=== PATIENT | female | born 1960 | race Caucasian/White ===

== ENCOUNTER → 2017-10-21 15:51 | Outpatient (CLI) | payer OTHER, SELFPAY | PROVIDERS: PCP Internal Medicine; Visit Provider Internal Medicine | DX: R00.2 Palpitations (principal); I11.9 Hypertensive heart disease without heart failure; E78.5 Hyperlipidemia, unspecified | CPT/HCPCS: 93225 ==

== ENCOUNTER → 2017-12-01 13:19 | Outpatient (CLI) | payer OTHER, SELFPAY ==
--- NOTE | 2017-12-01 13:30 | XR_ITS ---
XR chest 2V HISTORY: ITS.REASON: chest pain ORDERING PHYSICIAN: Jamil Ureña MD PATIENT AGE: 57 years COMPARISON: 09/20/2016 FINDINGS: The cardiomediastinal silhouette and pulmonary vascularity are within normal limits. The lungs are clear without infiltrates, suspicious nodules, or pleural effusions. No acute bony abnormalities. IMPRESSION: Negative chest, no acute finding
== END ==
PROVIDERS: PCP Nurse Practitioner Family; Visit Provider Internal Medicine
DX: R07.9 Chest pain, unspecified (principal); I11.9 Hypertensive heart disease without heart failure; E78.5 Hyperlipidemia, unspecified; F17.200 Nicotine dependence, unspecified, uncomplicated; Z82.49 Family history of ischemic heart disease and other diseases of the circulatory system
CPT/HCPCS: 71046

== ENCOUNTER → 2018-05-04 14:11 | Outpatient (CLI) | payer OTHER, SELFPAY ==
--- NOTE | 2018-05-04 14:22 | XR_ITS ---
EXAM: XR thoracic spine 3V HISTORY: ITS.REASON: ACUTE MIDLINE T SPINE PAIN Comparison: None FINDINGS: Minimal mid thoracic curvature convex right. No fracture or dislocation. No lytic or blastic change. Minimal endplate osteophytes noted anteriorly in the midthoracic spine. IMPRESSION: Mild dextroscoliosis with minimal thoracic spondylosis, no acute finding
== END ==
PROVIDERS: PCP Nurse Practitioner Family; Visit Provider Nurse Practitioner Family
DX: M54.6 Pain in thoracic spine (principal)
CPT/HCPCS: 72072

== ENCOUNTER → 2018-05-11 11:37 | Outpatient (CLI) | payer OTHER, SELFPAY ==
--- NOTE | 2018-05-11 11:53 | XR_ITS ---
EXAM: XR lumbar spine min 4V HISTORY: ITS.REASON: KASIE LOW BACK PAIN ORDERING PHYSICIAN: Tasha Delong PATIENT AGE: 57 years COMPARISON: None FINDINGS: There is minimal lumbar curvature convex right. No fracture or dislocation. No lytic or blastic change. Mild degenerative disc disease is present at L2-L3 and L3-L4. There is minimal anterolisthesis of L4 on L5 of 4 mm. Mild facet arthritic changes are present at L4-L5. There is a small area of sclerosis involving the left ilium medially and superiorly at the SI joint IMPRESSION: Lumbar spondylosis as described above
== END ==
PROVIDERS: PCP Nurse Practitioner Family; Visit Provider Nurse Practitioner Family
DX: M54.41 Lumbago with sciatica, right side (principal)
CPT/HCPCS: 72110

== ENCOUNTER → 2018-05-19 10:29 | Outpatient (POV) | payer OTHER, SELFPAY ==
[2018-05-19 10:59] VITALS: BP 130/52; PULSE 69; RESP 18; O2SAT 98
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
== END ==
PROVIDERS: PCP Family Medicine; Visit Provider Clinical Nurse Specialist Family Health
DX: M51.16 Intervertebral disc disorders with radiculopathy, lumbar region (principal)
CPT/HCPCS: 99202

== ENCOUNTER → 2018-06-02 12:32 | Outpatient (CLI) | payer OTHER, SELFPAY ==
--- NOTE | 2018-06-02 12:43 | MR_ITS ---
MR lumbar spine wo con, MR 3-d myelogram/MRCP HISTORY: PT states worsening low back pain. PT also states Rt leg pain and if sitting a long period of time PT will have numbness in buttock. ITS.REASON: LUMBAR DDD, LUMBAR SPONDYLOSIS ORDERING PHYSICIAN: Tasha Delong PATIENT AGE: 57 years Comparison: X-Ray 05/11/18 TECHNIQUE: Standard multiplanar multiecho sequences are performed without contrast. 3-D MIP and myelographic images are also rendered and reviewed FINDINGS: There is normal alignment. The spinal cord ends at the T12-L1 level. T11-T12: Mild degenerative disc disease. T12-L1: Unremarkable. L1-L2: Unremarkable L2-L3: Degenerative disc disease with bulging disc and mild facet and ligamentum flavum hypertrophy with mild bilateral lateral recess and mild left foraminal narrowing. L3-L4: Mild degenerative disc disease with bulging disc along with facet and ligamentum flavum hypertrophy with mild bilateral lateral recess narrowing and mild bilateral foraminal narrowing. L4-5: Mild bulging disc along with facet and ligamentum flavum hypertrophy with moderate bilateral foraminal narrowing. There is borderline transverse narrowing of the canal is 12 mm. Is minimal anterolisthesis of L4 to millimeters L5-S1: Degenerative disc disease with minimal bulging disc and minimal central disc protrusion without impingement. There is mild facet ligamentum flavum hypertrophy. No disc herniation. There is a small left renal cyst laterally at 5 mm. Nonspecific increased T1 and T2 signal involves the mid aspect of L1, superior endplate of L3 anteriorly and the inferior endplate of L3 posteriorly consistent with lipomatous or hemangiomatous changes. IMPRESSION: 1. Mild multilevel lumbar spondylosis with degenerative disc disease and bulging disc along with facet and ligamentum flavum hypertrophy with lateral recess and foraminal narrowing. See above for detailed description at each level. 2. No disc herniation or central canal stenosis
== END ==
PROVIDERS: PCP Nurse Practitioner Family; Visit Provider Nurse Practitioner Family
DX: M51.36 Other intervertebral disc degeneration, lumbar region (principal); M47.816 Spondylosis without myelopathy or radiculopathy, lumbar region
CPT/HCPCS: 72148; 76376

== ENCOUNTER → 2018-07-07 10:25 | Outpatient (POV) | payer OTHER, SELFPAY ==
[2018-07-07 10:32] VITALS: BP 113/83; PULSE 79; RESP 18; O2SAT 98; BMI 20.5
--- NOTE | 2018-07-07 10:40 | HMH.PAINSOAP ---
[facility] Pain Management SOAP Note Subjective:: Patient is a pleasant 57-year-old white female who we are treating for low back pain with lumbar radicular symptoms. Patient is status post one lumbar epidural steroid injection and she states she is 80% improved. Patient states her only symptomology is now on her right side. She has right leg pain. Patient would like to try one more epidural injection to see if this is beneficial. She rates her pain today 3 out of 10. ROS General: no recent weight change, no fever, no sleep disturbances Respiratory: no cough, no shortness of air, no recurring pulmonary infections Cardiovascular/Peripheral Vascular: No chest pain, No palpitations, no edema, no shortness of breath. Gastrointestinal: no incontinence, normal bowel movements reported Genitourinary: no incontinence Musculoskeletal: Back pain, right leg pain Psychiatric: normal mood/ affect Neurological: [denies weakness in extremities], [denies balance issues] Objective:: Physical Exam General: Alert and oriented x3, no acute distress, pleasant and cooperative, [on room air] Lungs: Resps E/U, Symmetrical chest expansion, Eyes: PERRL Musculoskeletal: Flexion and extension of lumbar spine somewhat guarded secondary to pain, deep tendon reflexes normal, strength in upper and lower extremities [5/5], normal gait noted, positive straight leg raise test on the right side at 30 degrees Neurological: speech clear, 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 I will follow-up with the patient after this and reassess her symptoms at that time. Patient is continuing a home stretching program. Patient is not on any anticoagulation therapy. This note was dictated using voice recognition software and may contain errors or omissions
--- NOTE | 2018-07-07 10:43 | P.CONS_ITS ---
[facility] Pain Management SOAP Note Subjective:: Patient is a pleasant 57-year-old white female who we are treating for low back pain with lumbar radicular symptoms. Patient is status post one lumbar epidural steroid injection and she states she is 80% improved. Patient states her only symptomology is now on her right side. She has right leg pain. Patient would like to try one more epidural injection to see if this is beneficial. She rates her pain today 3 out of 10. ROS General: no recent weight change, no fever, no sleep disturbances Respiratory: no cough, no shortness of air, no recurring pulmonary infections Cardiovascular/Peripheral Vascular: No chest pain, No palpitations, no edema, no shortness of breath. Gastrointestinal: no incontinence, normal bowel movements reported Genitourinary: no incontinence Musculoskeletal: Back pain, right leg pain Psychiatric: normal mood/ affect Neurological: [denies weakness in extremities], [denies balance issues] Objective:: Physical Exam General: Alert and oriented x3, no acute distress, pleasant and cooperative, [on room air] Lungs: Resps E/U, Symmetrical chest expansion, Eyes: PERRL Musculoskeletal: Flexion and extension of lumbar spine somewhat guarded secondary to pain, deep tendon reflexes normal, strength in upper and lower extremities [5/5], normal gait noted, positive straight leg raise test on the right side at 30 degrees 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 I will follow-up with the patient after this and reassess her symptoms at that time. Patient is continuing a home stretching program. Patient is not on any anticoagulation therapy. This note was dictated using voice recognition software and may contain errors or omissions
== END ==
PROVIDERS: PCP Nurse Practitioner Family; Visit Provider Clinical Nurse Specialist Family Health
DX: M51.16 Intervertebral disc disorders with radiculopathy, lumbar region (principal)
CPT/HCPCS: 99213

== ENCOUNTER 2018-08-17 09:14 | Inpatient (IN) ==
[2018-08-17 09:50] LABS: Basophils # 0.1 K/mm3 (0-0.2); Basophils % 0.4 % (0.1-2.0); Eosinophils # 0.1 K/mm3 (0.0-0.4); Eosinophils % 0.4 % (0.1-12.0); Hematocrit 52.2 % (37.0-47.0); Hemoglobin 17.7 g/dL (12.2-16.2); Lymphocytes # 1.9 K/mm3 (0.7-4.5); Lymphocytes % 13.3 % (10-50); Mean Corpuscular Hemoglobin 30.8 pg (27.0-31.2); Mean Corpuscular Volume 90.7 fl (81-99); Mean Platelet Volume 7.6 fl (7.4-10.4); Monocytes # 0.6 K/mm3 (0.1-1.0); Neutrophils # 11.7 K/mm3 (1.8-7.8); Platelet Count 292 K/mm3 (142-424); Red Blood Count 5.75 M/mm3 (4.20-5.40); Red Cell Distribution Width 13.4 % (11.5-17.5); White Blood Count 14.3 K/mm3 (4.8-10.8)
--- NOTE | 2018-08-17 09:56 | Emergency Department Note ---
ED Disposition Clinical Impression: Pancreatitis, acute Qualifiers: Pancreatitis type: unspecified pancreatitis type Disposition: Admitted as Observation Condition on Discharge: Good Instructions: DI for Acute Abdomen Prescriptions: predniSONE [Prednisone 50mg Tab] 50 mg PO DAILY 5 Days #5 tab Referrals: Provider,Referral, [Referring] - Time of Disposition: 12:01 - Critical Care Critical Care Time: No Attestation: On 08/17/18, the high probability of a clinically significant, sudden or life threatening deterioration of the following system(s) required my full and direct attention, intervention and personal management. The time I documented below is in addition to time spent performing reported procedures but includes the following listed in this critical care notation. Medical Decision Making - Medical Records Medical records reviewed: Yes: I reviewed the patient's medical records. - Rojas Inquiry Pt receiving controlled substance: No Rojas was queried for this patient: No Vital Signs: 08/17/18 09:27 08/17/18 09:56 08/17/18 10:59 Temperature 98.2 F 98.2 F Temperature Source Oral Oral Pulse Rate [Right Radial] 84 84 63 Respiratory Rate 18 18 Blood Pressure [Right Arm] 138/74 138/74 144/66 H Blood Pressure Mean [Right Arm] 95 95 92 Blood Pressure Source [Right Arm] Automatic Cuff Automatic Cuff Automatic Cuff Blood Pressure Position [Right Arm] Sitting 02 Sat by Pulse Oximetry 100 100 98 Oxygen Delivery Method Room Air Room Air 08/17/18 11:16 Temperature Temperature Source Pulse Rate [Right Radial] 67 Respiratory Rate Blood Pressure [Right Arm] 147/84 H Blood Pressure Mean [Right Arm] 105 Blood Pressure Source [Right Arm] Automatic Cuff Blood Pressure Position [Right Arm] Sitting 02 Sat by Pulse Oximetry 95 Oxygen Delivery Method - Lab Data Lab results reviewed: Yes: I reviewed the patient's lab results. Lab Results 08/17/18 09:30: WBC 14.3 H, RBC 5.75 H, Hgb 17.7 H, Hct 52.2 H, MCV 90.7, MCH 30.8, MCHC 34.0, RDW 13.4, Plt Count 292, MPV 7.6, Neut % (Auto) 82.0 H, Lymph % (Auto) 13.3, [place] % (Auto) 4.0, Eos % (Auto) 0.4, Baso % (Auto) 0.4, Neut # (Auto) 11.7 H, Lymph # (Auto) 1.9, [place] # (Auto) 0.6, Eos # (Auto) 0.1, Baso # (Auto) 0.1 08/17/18 09:30: Sodium 139, Potassium 3.6, Chloride 97 L, Carbon Dioxide 32, Anion Gap 13.6, BUN 12, Creatinine 0.83, Estimated Creat Clear 69, Estimated GFR 71, Est GFR ( Amer) 86, Glucose 132 H, Calcium 11.0 H, Total Bilirubin 0.5, AST 26, ALT 37, Alkaline Phosphatase 176 H, Troponin I < 0.02, Total Protein 8.3 H, Albumin 4.2, Globulin 4.1 H, Albumin/Globulin Ratio 1.0 L, Amylase 239 H, Lipase 3015 H Result diagrams: 08/17/18 09:30 08/17/18 09:30 Orders (Tests/Meds): ED MEDICATIONS Discontinued Medications Generic Name Dose Route Start Last Admin Trade Name Freq PRN Reason Stop Dose Admin Famotidine 20 mg 08/17/18 09:39 08/17/18 09:44 Pepcid 20mg/2ml Vial IV 08/17/18 09:40 20 mg ONCE ONE Administration Hydromorphone HCl 1 mg 08/17/18 09:39 08/17/18 09:43 Dilaudid 2mg/Ml Syringe IV 08/17/18 09:40 1 mg ONCE ONE Administration Hydromorphone HCl 1 mg 08/17/18 11:04 08/17/18 11:09 Dilaudid 2mg/Ml Syringe IV 08/17/18 11:05 1 mg ONCE ONE Administration Sodium Chloride 1,000 mls @ 999 mls/hr 08/17/18 09:45 08/17/18 09:45 Sod Chlor 0.9% 1000ml Bag IV 08/17/18 10:45 999 mls/hr .Q1H1M RACHAEL Administration Ondansetron HCl 4 mg 08/17/18 09:39 08/17/18 09:44 Zofran 4mg/2ml Vial IV 08/17/18 09:40 4 mg ONCE ONE Administration Promethazine HCl 25 mg 08/17/18 11:05 08/17/18 11:09 Phenergan 25mg/Ml 1ml Vial IV 08/17/18 11:06 25 mg ONCE ONE Administration Sodium Chloride 10 ml 08/17/18 10:34 08/17/18 10:35 Rad-Saline Flush 10ml Syringe IV 08/17/18 10:35 10 ml ONCE ONE Administration Sodium Chloride 25 ml 08/17/18 11:05 08/17/18 11:09 Sod Chlor 0.9% 25ml Bag IV 08/17/18 11:06 25 ml ONCE ONE Administration ORDERS Category Date Time Status Chest XR 2 view (NOT portable) [XR chest 2V] Stat Exams 08/17/18 09:41 Taken Urinalysis and Microscopic Stat Lab 08/17/18 09:39 Ordered Abdominal Pain HPI - General Chief Complaint: Abdominal Pain Stated Complaint: upper stomach and back pain Time Seen by Provider: 08/17/18 09:40 Mode of Arrival: Ambulatory Limitations: No Limitations Description of Symptoms (Recalled from ER Triage Doc. by RN): Pt c/o feeling nausea all morning and vomiting. Pt states it just started this morning. - History of Present Illness MD complaint: abdominal pain Onset (ago): day(s) (2) Consistency: constant Location: epigastric Severity: moderate Severity scale (1-10): 6 Quality: aching Radiation: back - Related Data Home Medications Medication Instructions Recorded Confirmed atorvastatin 40 mg tablet 40 mg PO DAILY tab 11/04/17 08/06/18 celecoxib 200 mg capsule 200 mg PO BID cap 11/04/17 08/06/18 melatonin 3 mg tablet 3 mg PO HS PRN 11/04/17 08/06/18 Bisoprolol Fumarate [Bisoprolol 10 mg PO DAILY 04/27/18 08/06/18 10mg Tablet] diazePAM [Valium 2mg tablet] 2 mg PO DAILY 06/05/18 08/06/18 Lisinopril 20mg Tab 20 mg PO DAILYDM 07/24/18 08/06/18 Previous Rx's Medication Instructions Recorded trazodone 150 mg tablet 150 mg PO DAILY #30 tab 07/14/18 venlafaxine ER 150 mg 150 mg PO DAILY #30 cap 08/06/18 capsule,extended release 24 hr predniSONE [Prednisone 50mg Tab] 50 mg PO DAILY 5 Days #5 tab 08/17/18 Allergies Allergy/AdvReac Type Severity Reaction Status Date / Time No Known Allergies Allergy Verified 08/06/18 13:43 [facility] History - Hepatitis A Screen Drug use history?: No High risk sexual behaviors?: No History of sexually transmitted infection?: No Currently employed?: No Childcare worker?: No Do you have indoor plumbing?: Yes Do you have electricity?: Yes Attestation statement:: This patient has been screened for Hepatitis A risk factors. I have reviewed the patient's past medical history: Yes Medical History: Reports:: Anxiety, Depression, Hyperlipidemia, Hypertension, Kidney Stones, Palpitations Denies:: Cancer, Diabetes Mellitus Type 1, Diabetes Mellitus Type 2, MRSA, Seizures Other Medical History: Reports: Anemia, Arthritis Other Surgeries: Yes: Hysterectomy-Total, Other Amputation: No Fractures: No - Social History Smoking Status: Current every day smoker Tobacco Type: cigarettes # Packs/Day (cigarettes): 1 #Yrs smoked (if former smoker): 12 Alcohol Intake: never Alcohol Intake Frequency:: other Substance Use Type: crack/cocaine Occupational Status: unemployed Housing: house Household Members: spouse - Psychiatric History Expresses thoughts of harming self/others: None Suicide Plan Description: No Plan Pschychiatric History:: Reports:: Anxiety, Depression Family Hx:: Coronary Artery Disease, Hypertension, Hyperlipidemia ROS Obtained: Yes All systems reviewed & no additional complaints - Constitutional Constitutional: Denies chills, Denies fever(s) - Eyes Eyes: Reports system reviewed and no additional complaints, except as docu, Denies change in vision - ENT Ears, Nose, Mouth, and Throat: Reports system reviewed and no additional complaints, except as docu, Denies sore throat, Denies throat swelling - Cardiovascular Cardiovascular: Reports system reviewed and no additional complaints, except as docu, Denies chest pain, Denies chest pain at rest, Denies diaphoresis, Denies dyspnea, Denies dyspnea on exertion - Respiratory Respiratory: Yes system reviewed and no additional complaints, except as docu, No chest congestion, No cough, No non-productive cough, No dyspnea - Gastrointestinal Gastrointestingal: Reports: system reviewed and no additional complaints, except as docu, abdominal pain, nausea, vomiting. Denies: diarrhea - Musculoskeletal Musculoskeletal: Reports system reviewed and no additional complaints, except as docu, Denies muscle weakness, Denies muscle aches - Integumentary/Breasts Skin/Breast: Reports system reviewed and no additional complaints, except as docu, Denies rash - Neurologic Neurologic: Reports system reviewed and no additional complaints, except as docu, Denies tingling/numbness/burning sensations, Denies seizure-like activity, Denies syncope, Denies vertigo - Endocrine Endocrine: Reports system reviewed and no additional complaints, except as docu - Hematologic/Lymphatic Henatologic/Lymphatic: Denies easy bleeding, Denies easy bruising, Denies lymphadenopathy Physical Exam - General General appearance: alert, in no apparent distress - Head Head exam: atraumatic, normocephalic, normal inspection - Eye Eye exam: Present: normal appearance, PERRL, EOMI - ENT ENT exam: Present: normal exam, normal oropharynx, mucous membranes moist, TM's normal bilaterally, normal external ear exam - Neck Neck exam: Present: normal inspection, full ROM, trachea midline. Absent: meningismus, lymphadenopathy - Chest Chest inspection: Present: normal inspection, symmetric chest wall rise. Absent: tenderness - Respiratory Respiratory exam: Present: normal lung sounds bilaterally. Absent: respiratory distress - Cardiovascular Cardiovascular exam: Present: regular rate, normal rhythm. Absent: JVD - Abdominal Exam Abdominal exam: Present: soft, tenderness. Absent: distention, guarding, rebound, rigidity, mass Abdominal tenderness: Present: epigastrium - Extremities Exam Extremities exam: Present: normal inspection, full ROM, normal capillary refill. Absent: calf tenderness - Back Exam Back exam: Present: normal inspection. Absent: tenderness - Neurological Exam Neurological exam: Present: alert, oriented X3 - Psychiatric Psychiatric exam: Present: normal affect, normal mood - Skin Skin exam: Present: warm
[2018-08-17 10:01] LABS: Alanine Aminotransferase 37 U/L (12-78); Albumin Level 4.2 gm/dL (3.4-5.0); Alkaline Phosphatase 176 U/L (46-116); Amylase 239 U/L (25-115); Anion Gap 13.6 mEq/L (5-15); Aspartate Amino Transferase 26 U/L (15-37); Bilirubin,Total 0.5 mg/dL (0.2-1.0); Blood Urea Nitrogen 12 mg/dL (7-18); Carbon Dioxide 32 mmol/L (21.0-32.0); Chloride 97 mmol/L (98-107); Globulin 4.1 gm/dl (1.3-3.2); Glucose 132 mg/dL (74-106); Lipase 3015 u/L (73-393); Potassium 3.6 mmoL/L (3.5-5.1); Sodium 139 mmol/L (136-145); Total Protein,Serum 8.3 gm/dL (6.4-8.2)
--- NOTE | 2018-08-17 14:18 | Pharmacy Consult Notes ---
[facility] Pharmacy VTE Monitoring - Patient Demographics Admission date: 08/17/18 Report Date: 08/17/18 Time: 14:17 Allergies/Adverse Reactions: Patient Allergies No Known Allergies Allergy (Verified 08/06/18 13:43) Height: 1.65 m Weight: 56.699 kg Patient Problems: Current Active Problems Pancreatitis, acute (Acute) - VTE Risk Labs: VTE Related Lab Results Hgb 17.7 g/dL (12.2-16.2) H 08/17/18 09:30 Hct 52.2 % (37.0-47.0) H 08/17/18 09:30 Plt Count 292 K/mm3 (142-424) 08/17/18 09:30 BUN 12 mg/dL (7-18) 08/17/18 09:30 Creatinine 0.83 mg/dL (0.55-1.02) 08/17/18 09:30 Estimated Creat Clear 69 mL/min (50-200) 08/17/18 09:30 - Prophylaxis VTE Prophylaxis Ordered?: Yes Types of VTE Prophylaxis: TEDS Knee High Location of Applied Device: Bilateral Lower Extremeties - VTE Diagnosis Confirmed Treatment or plan recommended: Continue Current Treatment
--- NOTE | 2018-08-17 16:23 | History & Physical Report ---
*Admission Date: 08/17/18 *Chief complaint: abdominal pain and *History of present illness: 57 year old female presents for abdominal pain and vomiting. Nausea started over the weekend, vomiting began this morning, pain in located mid abdomen and radiates to back, described as burning, cramping and gnawing. Denies fever, chills, diarrhea, last BM was this morning. Tried omeprazole without any relief. PMH significant for pancreatitis three years ago, was admitted [place] hospital [place] [facility] for approx three days. Patient was admitted to second floor medical surgical unit for monitoring, fluid resuscitation, and pain control. [facility] History Medical History: Reports:: Anxiety, Depression, Hyperlipidemia, Hypertension, Kidney Stones, Palpitations Denies:: Cancer, Diabetes Mellitus Type 1, Diabetes Mellitus Type 2, MRSA, Seizures *Have you ever received a pneumonia vaccine?: No *Have you received a flu vaccine this season?: Yes Other Medical History: Reports: Anemia, Arthritis Other Surgeries: Yes: Hysterectomy-Total, Other (TONSILECTOMY AND CARPUL TUNNEL) Amputation: No Fractures: No - *Social History Educational Level: Completed High School Smoking Status: Current every day smoker Tobacco Type: cigarettes # Packs/Day (cigarettes): 1 #Yrs smoked (if former smoker): 12 Alcohol Intake: never Alcohol Intake Frequency:: other Substance Use Type: crack/cocaine *Occupational Status:: unemployed Housing: house Household Members: spouse *Travel in the last 8 weeks: None - Psychiatric History Expresses thoughts of harming self/others: None Suicide Plan Description: No Plan Pschychiatric History:: Reports:: Anxiety, Depression Family Hx:: Coronary Artery Disease, Hypertension, Hyperlipidemia Review of Systems - Constitutional Reports body ache(s), Denies chills, Denies fever(s), Denies headache(s) - *Cardiovascular Denies chest pain, Denies shortness of breath - *Respiratory Denies chest congestion, Denies cough - *Gastrointestinal Reports abdominal pain, Reports nausea, Reports vomiting, Denies constipation - *Neurologic Denies tingling/numbness/burning sensations, Denies seizure-like activity, Denies fainting, Denies dizziness Meds Home Medications Medication Instructions Recorded Confirmed Type atorvastatin 40 mg tablet 40 mg PO DAILY tab 11/04/17 08/17/18 History celecoxib 200 mg capsule 200 mg PO DAILY cap 11/04/17 08/17/18 History melatonin 3 mg tablet 10 mg PO HS PRN 11/04/17 08/17/18 History Bisoprolol Fumarate [Bisoprolol 10 mg PO DAILY 04/27/18 08/17/18 History 10mg Tablet] diazePAM [Valium 2mg tablet] 2 mg PO DAILY 06/05/18 08/17/18 History trazodone 150 mg tablet 150 mg PO DAILY #30 tab 07/14/18 08/17/18 Rx Lisinopril [Lisinopril 20mg Tab] 20 mg PO DAILY 07/24/18 08/17/18 History venlafaxine ER 150 mg 150 mg PO DAILY #30 cap 08/06/18 08/17/18 Rx capsule,extended release 24 hr Amlodipine Besylate [Norvasc 5mg 5 mg PO DAILY 08/17/18 08/17/18 History tablet] Furosemide [Furosemide 20mg Tab] 20 mg PO DAILY 08/17/18 08/17/18 History Ondansetron HCl [Zofran 4mg Tab] 4 mg PO NEEDED PRN 08/17/18 08/17/18 History Potassium Chloride [Klor-Con 10mEq 10 meq PO DAILY 08/17/18 08/17/18 History tab] Promethazine HCl [Phenergan 25mg 25 mg PO NEEDED PRN 08/17/18 08/17/18 History tab] Allergies Allergy/AdvReac Type Severity Reaction Status Date / Time No Known Allergies Allergy Verified 08/06/18 13:43 Exam Vital signs and Labs for Last 24 Hours: Temp Pulse Resp BP Pulse Ox 97.6 F 80 16 152/84 H 98 08/17/18 16:00 08/17/18 16:00 08/17/18 16:00 08/17/18 16:00 08/17/18 16:00 Laboratory Results - last 24 hr 08/17/18 09:30: WBC 14.3 H, RBC 5.75 H, Hgb 17.7 H, Hct 52.2 H, MCV 90.7, MCH 30.8, MCHC 34.0, RDW 13.4, Plt Count 292, MPV 7.6, Neut % (Auto) 82.0 H, Lymph % (Auto) 13.3, [place] % (Auto) 4.0, Eos % (Auto) 0.4, Baso % (Auto) 0.4, Neut # (Auto) 11.7 H, Lymph # (Auto) 1.9, [place] # (Auto) 0.6, Eos # (Auto) 0.1, Baso # (Auto) 0.1 08/17/18 09:30: Sodium 139, Potassium 3.6, Chloride 97 L, Carbon Dioxide 32, Anion Gap 13.6, BUN 12, Creatinine 0.83, Estimated Creat Clear 69, Estimated GFR 71, Est GFR ( Amer) 86, Glucose 132 H, Calcium 11.0 H, Total Bilirubin 0.5, AST 26, ALT 37, Alkaline Phosphatase 176 H, Troponin I < 0.02, Total Protein 8.3 H, Albumin 4.2, Globulin 4.1 H, Albumin/Globulin Ratio 1.0 L, Amylase 239 H, Lipase 3015 H I & O for Last 24 hours: Intake & Output 08/14/18 08/15/18 08/16/18 08/17/18 23:59 23:59 23:59 23:59 Intake Total 1000 / 1000 Balance 1000 / 1000 Weight 125 lb - Constitutional mild distress, thin - *Routine HEENT Exam Head: Present: normocephalic, atraumatic Eye: Present: EOMI, PERRL ENT: Present: mucous membranes dry - *Routine Respiratory Exam Present: CTA bilaterally. Absent: accessory muscle use - *Routine Cardiovascular Exam Present: RRR, Normal S1, Normal S2. Absent: murmur - *Routine Abdominal Exam Present: soft, normoactive bowel sounds, tenderness. Absent: distended, rigid - *Routine Extremities Exam Absent: cyanosis, edema - *Routine Skin Exam Present: intact, pallor - *Routine Neurological Exam Present: alert, oriented X3 - Routine Psychiatric Exam Present: normal affect Assessment and Plan - Assessment and plan all Dx Assessment and Plan for all problems:: Continue to monitor patient, OK to discontinue tele/SPO2, pain relief and antiemetic as ordered, will draw labs in AM. Remain NPO until tomorrow, may start clear liquids depending on patient status.
[2018-08-18 03:28] LABS: Microscopic, Urine URINE MICROSCOPIC (MICROSCOPIC)
[2018-08-18 03:29] LABS: Appearance,Urine CLEAR (Clear); Bilirubin,Urine Negative (Negative); Blood, Urine TRACE-I (Negative); Color,Urine YELLOW (Yellow); Glucose,Urine (UA) Negative (Negative); Ketones,Urine Negative (Negative); Leukocyte Esterase,Urine Negative (Negative); PH,Urine 6.5 (5.0-8.5); Protein,Urine Negative (Negative); Specific Gravity, Urine 1.015 (1.005-1.030); Urobilinogen,Urine 0.2 EU/dl (0.2)
[2018-08-18 03:37] LABS: Bacteria,Urine 1+ /lpf; Mucus,Urine 1+ /lpf
[2018-08-18 06:53] LABS: Basophils % 0.1 % (0.1-2.0); Eosinophils % 0.1 % (0.1-12.0); Hematocrit 42.3 % (37.0-47.0); Lymphocytes # 0.6 K/mm3 (0.7-4.5); Mean Corpuscular HGB Conc 33.5 g/dL (31.8-35.4); Mean Corpuscular Hemoglobin 30.5 pg (27.0-31.2); Mean Corpuscular Volume 91.1 fl (81-99); Mean Platelet Volume 7.3 fl (7.4-10.4); Monocytes # 0.4 K/mm3 (0.1-1.0); Monocytes % 4.7 % (1.7-9.3); Neutrophils # 8.4 K/mm3 (1.8-7.8); Neutrophils % 89.2 % (37.0-80.0); Platelet Count 196 K/mm3 (142-424); Red Blood Count 4.64 M/mm3 (4.20-5.40); Red Cell Distribution Width 13.3 % (11.5-17.5); White Blood Count 9.5 K/mm3 (4.8-10.8)
[2018-08-18 07:01] LABS: Anion Gap 11.2 mEq/L (5-15); Potassium 4.2 mmoL/L (3.5-5.1)
[2018-08-18 07:08] LABS: Chol/HDL Ratio 4.9 (1-3.5)
[2018-08-18 07:12] LABS: Calcium 9.5 mg/dL (8.5-10.1); Hemoglobin 14.2 g/dL (12.2-16.2)
--- NOTE | 2018-08-18 07:30 | Progress Note ---
Internal Medicine - PN: Subj *Date: 08/18/18 *Time: 07:26 Interval history: Patient reportedly had a rough night with continued nausea, vomiting, abdominal pain and headache. Symptoms were somewhat relieved by medications, she tells me the phenergan helped more so than zofran. Morphine helps pain but not in entirety. She has remained NPO but inquires about starting ice chips today. She drinks about four pepsi's per day and thinks headache may be due to not having caffeine. Denies diarrhea. Exam Vital signs and Labs for Last 24 Hours: Temp Pulse Resp BP Pulse Ox 99.1 F 71 16 142/83 H 98 08/18/18 04:00 08/18/18 04:00 08/18/18 04:00 08/18/18 04:00 08/18/18 04:00 Laboratory Results - last 24 hr 08/17/18 09:30: WBC 14.3 H, RBC 5.75 H, Hgb 17.7 H, Hct 52.2 H, MCV 90.7, MCH 30.8, MCHC 34.0, RDW 13.4, Plt Count 292, MPV 7.6, Neut % (Auto) 82.0 H, Lymph % (Auto) 13.3, [place] % (Auto) 4.0, Eos % (Auto) 0.4, Baso % (Auto) 0.4, Neut # (Auto) 11.7 H, Lymph # (Auto) 1.9, [place] # (Auto) 0.6, Eos # (Auto) 0.1, Baso # (Auto) 0.1 08/17/18 09:30: Sodium 139, Potassium 3.6, Chloride 97 L, Carbon Dioxide 32, Anion Gap 13.6, BUN 12, Creatinine 0.83, Estimated Creat Clear 69, Estimated GFR 71, Est GFR ( Amer) 86, Glucose 132 H, Calcium 11.0 H, Total Bilirubin 0.5, AST 26, ALT 37, Alkaline Phosphatase 176 H, Troponin I < 0.02, Total Protein 8.3 H, Albumin 4.2, Globulin 4.1 H, Albumin/Globulin Ratio 1.0 L, Amylase 239 H, Lipase 3015 H 08/18/18 03:11: Urine Color Yellow, Urine Appearance Clear, Urine pH 6.5, Ur Specific [place] 1.015, Urine Protein Negative, Urine Glucose (UA) Negative, Urine Ketones Negative, Urine Blood Trace-i, Urine Nitrate Negative, Urine Bilirubin Negative, Urine Urobilinogen 0.2, Ur Leukocyte Esterase Negative, Urine RBC 3-5, Urine WBC 3-5, Ur Squamous Epith Cells 3-5, Urine Bacteria 1+, Urine Mucus 1+ 08/18/18 06:30: WBC 9.5 D, RBC 4.64, Hgb 14.2 D, Hct 42.3, MCV 91.1, MCH 30.5, MCHC 33.5, RDW 13.3, Plt Count 196 D, MPV 7.3 L, Neut % (Auto) 89.2 H, Lymph % (Auto) 6.0 L, [place] % (Auto) 4.7, Eos % (Auto) 0.1, Baso % (Auto) 0.1, Neut # (Auto) 8.4 H, Lymph # (Auto) 0.6 L, [place] # (Auto) 0.4, Eos # (Auto) 0.0, Baso # (Auto) 0.0 08/18/18 06:30: Sodium 141, Potassium 4.2, Chloride 108 H, Carbon Dioxide 26, Anion Gap 11.2, BUN 12, Creatinine 0.58 D, Estimated Creat Clear 98, Estimated GFR 108, Est GFR ( Amer) 131 D, Glucose 106, Calcium 9.5 D, Amylase 606 H* 08/18/18 06:30: Triglycerides 130, Cholesterol 190, LDL Cholesterol 125, VLDL Cholesterol 26, HDL Cholesterol 39, Cholesterol/HDL Ratio 4.9 H I & O for Last 24 hours: Intake & Output 08/15/18 08/16/18 08/17/18 08/18/18 23:59 23:59 23:59 23:59 Intake Total 1000 / 1000 Output Total 400 / 400 Balance 1000 / 1000 -400 / -400 Weight 125 lb - Constitutional no acute distress, thin - *Routine HEENT Exam Head: Present: normocephalic, atraumatic ENT: Present: mucous membranes dry - *Routine Respiratory Exam Present: CTA bilaterally. Absent: accessory muscle use, rales - *Routine Cardiovascular Exam Present: RRR, Normal S1, Normal S2. Absent: murmur - *Routine Abdominal Exam Present: normoactive bowel sounds, tenderness, firm Comments: slight distention - *Routine Extremities Exam Absent: cyanosis, edema - *Routine Skin Exam Present: intact, dry, pallor - *Routine Neurological Exam Present: alert, oriented X3 - Routine Psychiatric Exam Present: normal affect Assessment and Plan - Assessment and plan all Dx Assessment and Plan for all problems:: Patient to remain NPO at this time, will increase morphine to 4mg every 2hr PRN pain. Will also increase IVF back up to 250ml/hr. Will follow up with this afternoon.
[2018-08-18 08:59] LABS: Lymphocytes % 7 % (10-50); Monocytes % 3 % (2-9); Neutrophils % 90 % (42-76); RBC Morphology Normal; Total Cells Counted 100
[2018-08-19 06:52] LABS: Basophils % 0.1 % (0.1-2.0); Eosinophils % 0.3 % (0.1-12.0); Hematocrit 37.5 % (37.0-47.0); Lymphocytes # 0.7 K/mm3 (0.7-4.5); Lymphocytes % 7.1 % (10-50); Mean Corpuscular HGB Conc 34.7 g/dL (31.8-35.4); Mean Corpuscular Hemoglobin 31.1 pg (27.0-31.2); Mean Corpuscular Volume 89.7 fl (81-99); Mean Platelet Volume 7.7 fl (7.4-10.4); Monocytes # 0.4 K/mm3 (0.1-1.0); Monocytes % 4.2 % (1.7-9.3); Neutrophils % 88.3 % (37.0-80.0); Platelet Count 169 K/mm3 (142-424); Red Blood Count 4.18 M/mm3 (4.20-5.40); White Blood Count 10.1 K/mm3 (4.8-10.8)
[2018-08-19 07:03] LABS: Albumin Level 2.5 gm/dL (3.4-5.0); Albumin/Globulin Ratio 0.8 (1.1-1.8); Anion Gap 11.3 mEq/L (5-15); Bilirubin,Total 0.5 mg/dL (0.2-1.0); Calcium 9.2 mg/dL (8.5-10.1); Potassium 3.3 mmoL/L (3.5-5.1); Total Protein,Serum 5.5 gm/dL (6.4-8.2)
--- NOTE | 2018-08-19 07:10 | Progress Note ---
Internal Medicine - PN: Subj *Date: 08/19/18 *Time: 07:04 Interval history: Patient reports feeling tender and more swollen in abdomen this morning. Has tolerated sips of water and ice chips throughout the night, positive for nausea, negative for vomiting, dry heaves, fevers, or chills. Denies any shortness of breath. Last bowel movement one friday morning. Exam Vital signs and Labs for Last 24 Hours: Temp Pulse Resp BP Pulse Ox 98.2 F 68 16 139/73 95 08/19/18 04:00 08/19/18 04:00 08/19/18 04:00 08/19/18 04:00 08/19/18 04:00 Laboratory Results - last 24 hr 08/18/18 06:30: Hgb 14.2 D, Total Counted 100, Neutrophils % (Manual) 90 H, Lymphocytes % (Manual) 7 L, Monocytes % (Manual) 3, Platelet Estimate Normal, RBC Morphology Normal 08/18/18 06:30: Sodium 141, Potassium 4.2, Chloride 108 H, Carbon Dioxide 26, Anion Gap 11.2, BUN 12, Creatinine 0.58 D, Estimated Creat Clear 98, Estimated GFR 108, Est GFR ( Amer) 131 D, Glucose 106, Calcium 9.5 D, Amylase 606 H* 08/18/18 06:30: Lipase 3538 H 08/18/18 06:30: Triglycerides 130, Cholesterol 190, LDL Cholesterol 125, VLDL Cholesterol 26, HDL Cholesterol 39, Cholesterol/HDL Ratio 4.9 H 08/19/18 06:13: WBC 10.1, RBC 4.18 L, Hgb 13.0, Hct 37.5, MCV 89.7, MCH 31.1, MCHC 34.7, RDW 13.0, Plt Count 169, MPV 7.7, Neut % (Auto) 88.3 H, Lymph % (A uto) 7.1 L, [place] % (Auto) 4.2, Eos % (Auto) 0.3, Baso % (Auto) 0.1, Neut # (Auto) 9.0 H, Lymph # (Auto) 0.7, [place] # (Auto) 0.4, Eos # (Auto) 0.0, Baso # (Auto) 0.0 I & O for Last 24 hours: Intake & Output 0208/17/18 08/18/18 08/19/18 23:59 23:59 23:59 23:59 Intake Total 1000 / 1000 0 / 0 / Output Total 1000 / 1000 Balance 1000 / 1000 -1000 / -1000 Weight 125 lb - Constitutional no acute distress, thin - *Routine HEENT Exam Head: Present: normocephalic, atraumatic - *Routine Respiratory Exam Present: CTA bilaterally. Absent: accessory muscle use, rales - *Routine Cardiovascular Exam Present: RRR, Normal S1, Normal S2. Absent: murmur, irregular rhythm - *Routine Abdominal Exam Present: tenderness, distended, rigid Comments: hypoactive bowel sounds noted - *Routine Extremities Exam Absent: cyanosis, edema - *Routine Skin Exam Present: intact. Absent: cyanosis, dry - *Routine Neurological Exam Present: alert, oriented X3 - Routine Psychiatric Exam Present: normal affect Assessment and Plan - Assessment and plan all Dx Assessment and Plan for all problems:: Continue IVFs and management of pain with medications on AUG. Will order labs for tomorrow morning. Patient to continue on sips of water and ice chips at this time, will see patient this afternoon to determine advancement of diet.
[2018-08-19 07:40] LABS: Lymphocytes % 5 % (10-50); Monocytes % 3 % (2-9); Neutrophils % 92 % (42-76); Total Cells Counted 100
[2018-08-19 07:41] LABS: RBC Morphology Normal
--- NOTE | 2018-08-20 07:04 | Progress Note ---
Internal Medicine - PN: Subj *Date: 08/20/18 *Time: 07:02 Interval history: Patient feels better. Pain is present but improving. No vomiting. Some nausea. Nausea is not made worse with po intake Exam Vital signs and Labs for Last 24 Hours: Temp Pulse Resp BP Pulse Ox 98.1 F 71 16 94/52 L 96 08/20/18 04:00 08/20/18 04:00 08/20/18 04:00 08/20/18 04:00 08/20/18 04:00 Laboratory Results - last 24 hr 08/19/18 06:13: Total Counted 100, Neutrophils % (Manual) 92 H, Lymphocytes % (Manual) 5 L, Monocytes % (Manual) 3, Platelet Estimate Normal, RBC Morphology Normal 08/19/18 06:13: Sodium 141, Potassium 3.3 L D, Chloride 108 H, Carbon Dioxide 25, Anion Gap 11.3, BUN 5 L D, Creatinine 0.52 L, Estimated Creat Clear 109, Estimated GFR 122, Est GFR ( Amer) 148, Glucose 116 H, Calcium 9.2, Total Bilirubin 0.5, AST 7 L D, ALT 15 D, Alkaline Phosphatase 99, Total Protein 5.5 L D, Albumin 2.5 L, Globulin 3.0, Albumin/Globulin Ratio 0.8 L, Amylase 377 H* D 08/19/18 06:13: Lipase 1126 H I & O for Last 24 hours: Intake & Output 08/17/18 08/18/18 08/19/18 08/20/18 11:59 11:59 11:59 11:59 Intake Total 1000 / 1000 911 / 911 3601 / 3601 Output Total 400 / 400 600 / 600 Balance 600 / 600 311 / 311 3601 / 3601 Weight 125 lb 125 lb Narrative: Does not appear to be in pain. Abdomen is soft with epigastric tenderness with deep palpation. Mild epigastric swelling. Bowel Sounds present Assessment and Plan (1) Pancreatitis, acute Current visit: Yes Status: Acute Qualifiers: Pancreatitis type: unspecified pancreatitis type Category: Medical Code(s): K85.90 - Acute pancreatitis without necrosis or infection, unspecified - Assessment and plan all Dx Assessment and Plan for all problems:: Advance diet later today. Encouraged ambulation
[2018-08-20 07:08] LABS: Anion Gap 13.3 mEq/L (5-15); Bilirubin,Total 0.5 mg/dL (0.2-1.0); Potassium 4.3 mmoL/L (3.5-5.1)
[2018-08-20 07:29] LABS: Calcium 9.2 mg/dL (8.5-10.1); Total Protein,Serum 5.1 gm/dL (6.4-8.2)
[2018-08-20 07:30] LABS: Albumin Level 2.4 gm/dL (3.4-5.0); Albumin/Globulin Ratio 0.9 (1.1-1.8); Globulin 2.7 gm/dl (1.3-3.2)
[2018-08-21 07:11] LABS: Albumin Level 2.2 gm/dL (3.4-5.0); Albumin/Globulin Ratio 0.6 (1.1-1.8); Anion Gap 11.4 mEq/L (5-15); Bilirubin,Total 0.7 mg/dL (0.2-1.0); Calcium 9.5 mg/dL (8.5-10.1); Globulin 3.4 gm/dl (1.3-3.2); Potassium 4.4 mmoL/L (3.5-5.1); Total Protein,Serum 5.6 gm/dL (6.4-8.2)
--- NOTE | 2018-08-21 07:15 | Discharge Summary ---
General - General Admission date:: 08/17/18 Discharge date: 08/21/18 HPI HPI: 57 year old female presents for abdominal pain and vomiting. Nausea started over the weekend, vomiting began this morning, pain in located mid abdomen and radiates to back, described as burning, cramping and gnawing. Denies fever, chills, diarrhea, last BM was this morning. Tried omeprazole without any relief. PMH significant for pancreatitis three years ago, was admitted to a hospital [facility] for approx three days. Patient was admitted to second floor medical surgical unit for monitoring, fluid resuscitation, and pain control. Hospital Course Hospital Course: Patient was admitted and placed n.p.o. with orders for morphine for pain and Reglan for nausea. Patient remained n.p.o. for over 24 hours before attempts were made to advance diet. On the evening of the patient was allowed ice chips. Abdominal pain continued to improve. On the she was advanced to clear liquid diet. Patient was on clear liquid diet for 24 hours. She had no recurrence of vomiting. While she continued to have some episodes of abdominal pain overall abdominal pain was gradually decreasing in intensity. On the her diet was advanced to full liquids which she once again tolerated without increase in nausea, recurrence of vomiting, or pain. By the morning of the patient had gone approximately 10 hours without pain medication. On exam her abdomen was nontender. Bowel sounds were present. Patient was ambulating. She had noted significant improvement in abdominal pain. Patient was discharged home. She will follow-up in the office on a previously scheduled appointment on September 03 Objective Vital signs: Temp Pulse Resp BP Pulse Ox 99.4 F 68 16 108/56 L 97 08/21/18 04:00 08/21/18 04:00 08/21/18 04:00 08/21/18 04:00 08/21/18 04:00 Results Labs on day of discharge: Labs from last 24 hours 08/20/18 05:42 Sodium 137 Potassium 4.3 D Chloride 108 H Carbon Dioxide 20 L Anion Gap 13.3 BUN 4 L Creatinine 0.52 L Estimated Creat Clear 109 Estimated GFR 122 Est GFR ( Amer) 148 Glucose 125 H Calcium 9.2 Total Bilirubin 0.5 AST 16 D ALT 17 Alkaline Phosphatase 110 Total Protein 5.1 L Albumin 2.4 L Globulin 2.7 Albumin/Globulin Ratio 0.9 L DS: Diagnosis - Discharge Diagnosis (1) Pancreatitis, acute Status: Acute Discharge Plan - Patient Discharge Instructions ACTIVITY: Continue current activity DIET: continue same diet Patient Instructions: Acute Pancreatitis - Follow up Plan Follow up with: Tasha Delong APRN [Primary Care Provider] - 09/03/18 Disposition: Home, Self-Jail Medications: Home Medications Medication Instructions Recorded Confirmed Type atorvastatin 40 mg tablet 40 mg PO DAILY tab 11/04/17 08/17/18 History celecoxib 200 mg capsule 200 mg PO DAILY cap 11/04/17 08/17/18 History melatonin 3 mg tablet 6 mg PO HSP PRN 11/04/17 08/18/18 History Bisoprolol Fumarate [Bisoprolol 10 mg PO DAILY 04/27/18 08/17/18 History 10mg Tablet] diazePAM [Valium 2mg tablet] 2 mg PO DAILY 06/05/18 08/18/18 History trazodone 150 mg tablet 150 mg PO DAILY #30 tab 07/14/18 08/17/18 Rx Lisinopril [Lisinopril 20mg Tab] 20 mg PO DAILY 07/24/18 08/17/18 History venlafaxine ER 150 mg 150 mg PO DAILY #30 cap 08/06/18 08/17/18 Rx capsule,extended release 24 hr Amlodipine Besylate [Norvasc 5mg 5 mg PO DAILY 08/17/18 08/17/18 History tablet] Furosemide [Furosemide 20mg Tab] 20 mg PO DAILY 08/17/18 08/17/18 History Ondansetron HCl [Zofran 4mg Tab] 4 mg PO Q6HP PRN 08/17/18 08/18/18 History Potassium Chloride [Klor-Con 10mEq 10 meq PO DAILY 08/17/18 08/17/18 History tab] Promethazine HCl [Phenergan 25mg 25 mg PO Q6HP PRN 08/17/18 08/18/18 History tab] Hydrocodone/Acetaminophen [Pinola 1 each PO Q6HP PRN #10 tab 08/21/18 Rx 5-325 Tablet] Prescriptions/Medication Reconciliation: New Hydrocodone/Acetaminophen [Pinola 5-325 Tablet] 1 each PO Q6HP PRN #10 tab PRN Reason: Severe Pain Continue celecoxib 200 mg capsule 200 mg PO DAILY cap melatonin 3 mg tablet 6 mg PO HSP PRN PRN Reason: Sleep trazodone 150 mg tablet 150 mg PO DAILY #30 tab atorvastatin 40 mg tablet 40 mg PO DAILY tab venlafaxine ER 150 mg capsule,extended release 24 hr 150 mg PO DAILY #30 cap Bisoprolol Fumarate [Bisoprolol 10mg Tablet] 10 mg PO DAILY diazePAM [Valium 2mg tablet] 2 mg PO DAILY Promethazine HCl [Phenergan 25mg tab] 25 mg PO Q6HP PRN PRN Reason: Nausea And Vomiting Amlodipine Besylate [Norvasc 5mg tablet] 5 mg PO DAILY Furosemide [Furosemide 20mg Tab] 20 mg PO DAILY Lisinopril [Lisinopril 20mg Tab] 20 mg PO DAILY Potassium Chloride [Klor-Con 10mEq tab] 10 meq PO DAILY Discontinued Ondansetron HCl [Zofran 4mg Tab] 4 mg PO Q6HP PRN PRN Reason: Nausea And Vomiting
== END 2018-08-21 08:45 | disposition home or self-care (01) | DRG 440 ==
LOC: ER 09:14 → 2ND 12:30
PROVIDERS: ADMIT Family Medicine; ATTEND Family Medicine
CPT/HCPCS: 36415; 71020; 71046; 74177; 80048; 80053; 80061; 81001; 82150; 83690; 84484; 85007; 85025; 93005; 96365; 96375; 96376; 99285; J2405

== ENCOUNTER → 2018-10-23 15:25 | Outpatient (CLI) | payer OTHER, SELFPAY ==
--- NOTE | 2018-10-23 15:41 | XR_ITS ---
XR chest 2V HISTORY: ITS.REASON: PNEUMONIA ORDERING PHYSICIAN: Tasha Delong APRN PATIENT AGE: 58 years COMPARISON: 08/17/2018 FINDINGS: The cardiomediastinal silhouette and pulmonary vascularity are within normal limits. There are minimal atelectatic changes in the right CP angle. Lungs are otherwise clear. No acute bony findings. IMPRESSION: Minimal atelectasis in the right CP angle otherwise negative
[2018-10-23 15:47] LABS: Basophils % 0.3 % (0.1-2.0); Eosinophils # 0.1 K/mm3 (0.0-0.4); Eosinophils % 0.6 % (0.1-12.0); Hematocrit 38.3 % (37.0-47.0); Hemoglobin 13.4 g/dL (12.2-16.2); Lymphocytes # 0.8 K/mm3 (0.7-4.5); Lymphocytes % 5.1 % (10-50); Mean Corpuscular Hemoglobin 30.1 pg (27.0-31.2); Mean Corpuscular Volume 85.8 fl (81-99); Mean Platelet Volume 7.9 fl (7.4-10.4); Monocytes # 0.7 K/mm3 (0.1-1.0); Monocytes % 4.2 % (1.7-9.3); Neutrophils # 14.4 K/mm3 (1.8-7.8); Neutrophils % 89.8 % (37.0-80.0); Platelet Count 217 K/mm3 (142-424); Red Blood Count 4.47 M/mm3 (4.20-5.40)
[2018-10-23 15:50] LABS: MANUAL DIFFERENTIAL MANUAL DIFFERENTIAL (MANUAL DIFF)
[2018-10-23 16:23] LABS: Lymphocytes % 6 % (10-50); Monocytes % 2 % (2-9); Neutrophils % 92 % (42-76); Platelet Estimate Normal; RBC Morphology Normal; Total Cells Counted 100
[2018-10-23 17:13] LABS: Alanine Aminotransferase 28 U/L (12-78); Albumin Level 3.6 gm/dL (3.4-5.0); Albumin/Globulin Ratio 1.1 (1.1-1.8); Alkaline Phosphatase 141 U/L (46-116); Anion Gap 13.2 mEq/L (5-15); Aspartate Amino Transferase 11 U/L (15-37); Bilirubin,Total 0.5 mg/dL (0.2-1.0); Blood Urea Nitrogen 8 mg/dL (7-18); Calcium 9.9 mg/dL (8.5-10.1); Carbon Dioxide 29 mmol/L (21.0-32.0); Chloride 102 mmol/L (98-107); Creatinine,Serum 0.73 mg/dL (0.55-1.02); Estimated Glomerular Filt Rate 82 ml/min (>60); GFR (African American) 100 ML/MIN (>60); Globulin 3.4 gm/dl (1.3-3.2); Glucose 110 mg/dL (74-106); Potassium 3.2 mmoL/L (3.5-5.1); Sodium 141 mmol/L (136-145)
== END ==
PROVIDERS: PCP Nurse Practitioner Family; Visit Provider Nurse Practitioner Family
DX: R07.9 Chest pain, unspecified (principal); J18.1 Lobar pneumonia, unspecified organism; R50.9 Fever, unspecified
CPT/HCPCS: 36415; 71046; 80053; 85007; 85025

== ENCOUNTER → 2018-11-03 15:16 | Outpatient (CLI) | payer OTHER, SELFPAY ==
--- NOTE | 2018-11-03 15:26 | XR_ITS ---
XR shoulder LT min 2V HISTORY: ITS.REASON: ACUTE LT SHOULDER PAIN ORDERING PHYSICIAN: Tasha Delong APRN PATIENT AGE: 58 years Comparison: None FINDINGS: No fracture or dislocation. No lytic or blastic change. There is normal mineralization. The joint spaces are well-preserved. No significant degenerative/arthritic changes. No erosive changes evident. There is minimal calcification at the greater tuberosity and may be related to some calcific tendinitis IMPRESSION: Possible calcific tendinitis otherwise negative
[2018-11-03 15:34] LABS: Basophils % 0.4 % (0.1-2.0); Eosinophils # 0.1 K/mm3 (0.0-0.4); Eosinophils % 0.7 % (0.1-12.0); Hematocrit 42.3 % (37.0-47.0); Hemoglobin 14.7 g/dL (12.2-16.2); Lymphocytes # 1.5 K/mm3 (0.7-4.5); Lymphocytes % 13.9 % (10-50); Mean Corpuscular HGB Conc 34.7 g/dL (31.8-35.4); Mean Corpuscular Hemoglobin 30.5 pg (27.0-31.2); Mean Corpuscular Volume 87.8 fl (81-99); Mean Platelet Volume 7.8 fl (7.4-10.4); Monocytes # 0.4 K/mm3 (0.1-1.0); Monocytes % 3.6 % (1.7-9.3); Neutrophils # 8.8 K/mm3 (1.8-7.8); Neutrophils % 81.4 % (37.0-80.0); Platelet Count 318 K/mm3 (142-424); Red Blood Count 4.82 M/mm3 (4.20-5.40); Red Cell Distribution Width 13.4 % (11.5-17.5); White Blood Count 10.8 K/mm3 (4.8-10.8)
[2018-11-03 17:44] LABS: Alanine Aminotransferase 44 U/L (12-78); Albumin Level 3.8 gm/dL (3.4-5.0); Albumin/Globulin Ratio 1.2 (1.1-1.8); Alkaline Phosphatase 146 U/L (46-116); Anion Gap 11.2 mEq/L (5-15); Aspartate Amino Transferase 15 U/L (15-37); Bilirubin,Total 0.4 mg/dL (0.2-1.0); Blood Urea Nitrogen 13 mg/dL (7-18); Calcium 9.9 mg/dL (8.5-10.1); Carbon Dioxide 34 mmol/L (21.0-32.0); Chloride 102 mmol/L (98-107); Creatinine,Serum 0.73 mg/dL (0.55-1.02); Estimated Glomerular Filt Rate 82 ml/min (>60); GFR (African American) 100 ML/MIN (>60); Globulin 3.3 gm/dl (1.3-3.2); Glucose 114 mg/dL (74-106); Potassium 3.2 mmoL/L (3.5-5.1); Sodium 144 mmol/L (136-145); Total Protein,Serum 7.1 gm/dL (6.4-8.2)
== END ==
PROVIDERS: PCP Nurse Practitioner Family; Visit Provider Nurse Practitioner Family
DX: M25.512 Pain in left shoulder (principal); R53.83 Other fatigue
CPT/HCPCS: 36415; 73030; 80053; 85025

== ENCOUNTER → 2018-12-22 10:29 | Outpatient (POV) | payer OTHER, SELFPAY ==
[2018-12-22 10:46] VITALS: BP 159/75; PULSE 76; RESP 18; O2SAT 98; BMI 21.4
--- NOTE | 2018-12-22 10:54 | HMH.PAINSOAP ---
[facility] Pain Management SOAP Note Subjective:: Patient is a pleasant 57-year-old who presents today for plaints of left shoulder pain and low back pain. She does say that her shoulder pain is much worse in her low back pain. Patient reports that she had an injection with Dr. Tolliver, orthopedics, for pain to her left shoulder. She reports that the injection did help with range of motion, but the pain is still there. She rates her pain a 4 out of 10 today. She says that she has pain that is starting in her neck radiating to her left lateral arm and into her left fifth finger. She is unable to sleep on this side at night. ROS General: no recent weight change, no fever, no sleep disturbances Respiratory: no cough, no shortness of air, no recurring pulmonary infections Cardiovascular/Peripheral Vascular: No chest pain, No palpitations, no edema, no shortness of breath. Gastrointestinal: no incontinence, normal bowel movements reported Genitourinary: no incontinence Musculoskeletal: Neck pain, left arm pain Psychiatric: normal mood/ affect, [denies depression], [denies anxiety] Neurological: [denies weakness in extremities], [denies balance issues] Objective:: Physical Exam General: Alert and oriented x3, no acute distress, pleasant and cooperative, [on room air] Lungs: Resps E/U, Symmetrical chest expansion, Eyes: PERRL Musculoskeletal: Flexion and extension of cervical spine somewhat guarded secondary to pain, deep tendon reflexes normal, strength in upper and lower extremities [5/5], normal gait noted Neurological: speech clear, 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 We will see her back after the MRI and reassess her symptoms at that time. She will continue a home stretching program, along with NSAIDs. She is been instructed to call the office if she has any concerns prior to her next appointment. Dr. Krause has reviewed this note and agrees with this plan of care. This note was dictated using voice recognition software and may contain errors or omissions
== END ==
PROVIDERS: PCP Nurse Practitioner Family; Visit Provider Clinical Nurse Specialist Family Health
DX: M51.16 Intervertebral disc disorders with radiculopathy, lumbar region (principal); M50.10 Cervical disc disorder with radiculopathy, unspecified cervical region
CPT/HCPCS: 99212

== ENCOUNTER → 2019-01-04 12:51 | Outpatient (CLI) | payer OTHER, SELFPAY ==
--- NOTE | 2019-01-04 12:54 | MR_ITS ---
MR cervical spine wo con HISTORY: Neck pain and bilateral shoulder pain, left arm pain and numbness ITS.REASON: NECK PAIN ORDERING PHYSICIAN: Candy Vicente APRN PATIENT AGE: 58 years Comparison: None TECHNIQUE: Standard multiplanar multiecho sequences are performed without contrast. 3-D MIP and myelographic images are also rendered and reviewed FINDINGS: There is normal alignment. The craniocervical junction has an unremarkable appearance. C2-C3: Unremarkable. C3-C4: Mild left-sided facet hypertrophic change. Minimal foraminal narrowing on the left. C4-C5: Minimal bulging disc. C5-C6: Unremarkable. C6-C7: Unremarkable. C7-T1: Unremarkable. IMPRESSION: 1. Minimal foraminal narrowing on the left at C3-C4 and minimal bulging disc at C4-C5. 2. Otherwise negative MRI of the cervical spine
== END ==
PROVIDERS: PCP Nurse Practitioner Family; Visit Provider Clinical Nurse Specialist Family Health
DX: M54.2 Cervicalgia (principal)
CPT/HCPCS: 72141; 76376

== ENCOUNTER → 2019-01-12 10:03 | Outpatient (POV) | payer OTHER, SELFPAY ==
[2019-01-12 10:40] VITALS: BP 155/82; PULSE 58; RESP 18; O2SAT 98; BMI 20.7
--- NOTE | 2019-01-12 11:34 | P.CONS_ITS ---
[facility] Pain Management SOAP Note Subjective:: Patient is a pleasant 57-year-old female who presents today for follow-up. Patient's being seen for left shoulder pain and low back pain. At the last visit, we did send the patient for imaging of her cervical spine. Patient also received trigger point injections and says that she did have increased range of motion, but continues to have left neck pain. Patient says that the pain increased after driving for long period of time yesterday. She says that the pain is only in her left neck area. She does feel that she is tensing up while driving and says that it may be related to this. She does rate her pain a 7 out of 10 today. She is continuing a home stretching program along with NSAIDs. Review of Systems General: No recent weight changes, no fever, no sleep disturbances Respiratory: No cough, no shortness of air, no recurring pulmonary infections Cardiovascular/peripheral vascular: No chest pain, no palpitations, no edema, no shortness of breath Gastrointestinal: No new onset incontinence, normal bowel movements reported Genitourinary: No new onset incontinence Musculoskeletal: Left neck pain Psychiatric: Normal mood/affect Neurological: [Denies weakness in extremities], [denies balance issues] Objective:: Physical exam General: Alert and oriented x3, no acute distress, pleasant and cooperative, [on room air] Lungs: Respirations even and unlabored, symmetrical chest expansion Eyes: PERRL Musculoskeletal: Flexion and extension of cervical spine somewhat guarded secondary to pain, deep tendon reflexes normal, strength in upper and lower extremities [5/5], normal gait noted, point tenderness to paraspinous/trapezius Neurological: Speech clear, tube skiver equal, no gross sensory deficit Assessment:: Degenerative disc disease lumbar spine with lumbar radiculopathy, cervical pain with radiculopathy Plan:: We will order the patient compounding cream to apply topically to her left neck area. We will also schedule the patient for trigger point injections to the left paraspinous/trapezius area. We will see her back after the procedure to reassess her symptoms at that time. She is been instructed to call the office if she has any concerns prior to her next appointment. The end
== END ==
PROVIDERS: PCP Nurse Practitioner Family; Visit Provider Clinical Nurse Specialist Family Health
DX: M51.16 Intervertebral disc disorders with radiculopathy, lumbar region (principal); M50.10 Cervical disc disorder with radiculopathy, unspecified cervical region
CPT/HCPCS: 99212

== ENCOUNTER → 2019-02-16 09:12 | Outpatient (POV) | payer OTHER, SELFPAY ==
--- NOTE | 2019-02-16 09:20 | HMH.PAINSOAP ---
[facility] Pain Management SOAP Note Subjective:: 58-year-old white female who presents today for follow-up after trigger point injections. Patient states she is doing extremely well with the pain resolved in her left shoulder she rates her pain a 3 out of 10. She sometimes has a twinge in her lower back however overall doing well. ROS General: no recent weight change, no fever, no sleep disturbances Respiratory: no cough, no shortness of air, no recurring pulmonary infections Cardiovascular/Peripheral Vascular: No chest pain, No palpitations, no edema, no shortness of breath. Gastrointestinal: no incontinence, normal bowel movements reported Genitourinary: no incontinence Musculoskeletal: Myofascial pain, back pain Psychiatric: normal mood/ affect Neurological: [denies weakness in extremities], [denies balance issues] Objective:: Physical Exam General: Alert and oriented x3, no acute distress, pleasant and cooperative, [on room air] Lungs: Resps E/U, Symmetrical chest expansion, Eyes: PERRL Musculoskeletal: Flexion and extension of cervical and lumbar spine somewhat guarded secondary to pain, deep tendon reflexes normal, strength in upper and lower extremities [5/5], normal gait noted Neurological: speech clear, 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 Patient's been instructed to call the office if she has any issues she would like to follow-up on a as needed basis. Dr. Krause has reviewed this note and agrees with this plan of care. This note was dictated using voice recognition software and may contain errors or omissions Pain Management Hx Components *Have you ever received a pneumonia vaccine?: No *Have you received a flu vaccine this season?: No - *Social History *Occupational Status:: employed *Travel in the last 8 weeks: None
--- NOTE | 2019-02-16 09:26 | P.CONS_ITS ---
[facility] Pain Management SOAP Note Subjective:: 58-year-old white female who presents today for follow-up after trigger point injections. Patient states she is doing extremely well with the pain resolved in her left shoulder she rates her pain a 3 out of 10. She sometimes has a twinge in her lower back however overall doing well. ROS General: no recent weight change, no fever, no sleep disturbances Respiratory: no cough, no shortness of air, no recurring pulmonary infections Cardiovascular/Peripheral Vascular: No chest pain, No palpitations, no edema, no shortness of breath. Gastrointestinal: no incontinence, normal bowel movements reported Genitourinary: no incontinence Musculoskeletal: Myofascial pain, back pain Psychiatric: normal mood/ affect Neurological: [denies weakness in extremities], [denies balance issues] Objective:: Physical Exam General: Alert and oriented x3, no acute distress, pleasant and cooperative, [on room air] Lungs: Resps E/U, Symmetrical chest expansion, Eyes: PERRL Musculoskeletal: Flexion and extension of cervical and lumbar spine somewhat guarded secondary to pain, deep tendon reflexes normal, strength in upper and lower extremities [5/5], normal gait noted Neurological: speech clear, 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 Patient's been instructed to call the office if she has any issues she would like to follow-up on a as needed basis. Dr. Krause has reviewed this note and agrees with this plan of care. This note was dictated using voice recognition software and may contain errors or omissions Pain Management Hx Components *Have you ever received a pneumonia vaccine?: No *Have you received a flu vaccine this season?: No - *Social History *Occupational Status:: employed *Travel in the last 8 weeks: None
[2019-02-16 09:51] VITALS: BP 140/92; PULSE 61; RESP 18; O2SAT 98; BMI 20.7
== END ==
PROVIDERS: PCP Nurse Practitioner Family; Visit Provider Clinical Nurse Specialist Family Health
DX: M51.16 Intervertebral disc disorders with radiculopathy, lumbar region (principal); M79.18 Myalgia, other site
CPT/HCPCS: 99212

== ENCOUNTER → 2019-08-09 10:13 | Outpatient (POV) | payer OTHER, SELFPAY ==
--- NOTE | 2019-08-09 10:29 | P.CONS_ITS ---
[facility] Pain Management SOAP Note Subjective:: Is a pleasant 58-year-old white female who presents today for follow-up. Patient was doing extremely well after her epidural injections getting 80% relief for over 4 months. Patient is now had her pain return. Patient has been taking care of her mother who is on hospice and is total care. Because of this is been difficult for her. Patient rates her pain a 9 out of 10 today. Mostly in her low back and radiating down bilateral legs. She has positive straight leg raise test bilaterally at 30 degrees. She is not on any anticoagulation therapy. She has no current infections. She is completed physical therapy in the past and is continuing a physical therapist approved stretching program at home. ROS General: no recent weight change, no fever, no sleep disturbances Respiratory: no cough, no shortness of air, no recurring pulmonary infections Cardiovascular/Peripheral Vascular: No chest pain, No palpitations, no edema, no shortness of breath. Gastrointestinal: no new onset incontinence, normal bowel movements reported Genitourinary: no new onset incontinence Musculoskeletal: Back pain, leg pain Psychiatric: normal mood/ affect Neurological: [denies new onset weakness in extremities], [denies new onset balance issues] Objective:: Physical Exam General: Alert and oriented x3, no acute distress, pleasant and cooperative, [on room air] Lungs: Resps E/U, Symmetrical chest expansion, Eyes: PERRL Musculoskeletal: Flexion and extension of lumbar spine somewhat guarded secondary to pain, deep tendon reflexes normal, strength in upper and lower extremities [5/5], antalgic gait noted Neurological: 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 Follow-up with the patient afterwards reassess her symptoms at that time. Dr. rush is out and it will be 2 weeks before we can get her injection. We will give her round of steroids. Dr. Krause has reviewed this note and agrees with this plan of care. This note was dictated using voice recognition software and may contain errors or omissions [facility] History I have reviewed the patient's past medical history: Yes Medical History: Reports:: Anxiety, Depression, Hyperlipidemia, Hypertension, Kidney Stones, Palpitations, Seizures Denies:: Cancer, Diabetes Mellitus Type 1, Diabetes Mellitus Type 2, MRSA *Have you ever received a pneumonia vaccine?: No *Have you received a flu vaccine this season?: Yes Other Medical History: Reports: Anemia, Arthritis Other Surgeries: Yes: Hysterectomy-Total, Other (TONSILECTOMY AND CARPUL TUNNEL) Amputation: No Fractures: No - *Social History Smoking Status: Current every day smoker Tobacco Type: cigarettes # Packs/Day (cigarettes): 1 #Yrs smoked (if former smoker): 12 Alcohol Intake: never Alcohol Intake Frequency:: other Substance Use Type: crack/cocaine *Occupational Status:: other Housing: house Household Members: spouse *Travel in the last 8 weeks: None - Psychiatric History Pschychiatric History:: Reports:: Anxiety, Depression Family Hx:: Coronary Artery Disease, Hypertension, Hyperlipidemia
[2019-08-09 13:00] VITALS: BP 133/61; PULSE 58; RESP 18; O2SAT 99; BMI 19.8
== END ==
PROVIDERS: PCP Nurse Practitioner Family; Visit Provider Clinical Nurse Specialist Family Health
DX: M51.16 Intervertebral disc disorders with radiculopathy, lumbar region (principal); Z72.0 Tobacco use
CPT/HCPCS: 99212

== ENCOUNTER → 2019-10-11 12:58 | Outpatient (POV) | payer OTHER, SELFPAY ==
--- NOTE | 2019-10-11 13:16 | HMH.VVPMSO ---
[facility] Virtual Visit SOAP Consent for virtual visit:: With the recent concerns about the COVID-19, we are trying to minimize exposure to you by shifting to telehealth appointments whenever possible. It restricts me from seeing you in person, but the trade off is protecting you during this pandemic. Can you see and hear me okay, and do you consent to this option? If not, I would be happy to see if we can reschedule your appointment in the future, when feasible. Has patient consented to this virtual visit?: Yes Subjective:: Patient is a pleasant 59-year-old white female who presents today for a telehealth visit in regards to her low back pain. Patient has had epidural injections which is done well however she has a new pain which is in her lower right SI and right piriformis. She is pointing out pain over her right SI joint and in her piriformis muscle. Patient states that it radiates down but does not past her knee. She has difficulty going from the sitting to standing position. She rates her pain today a 6 out of 10. ROS General: no recent weight change, no fever, no sleep disturbances Respiratory: no cough, no shortness of air, no recurring pulmonary infections Cardiovascular/Peripheral Vascular: No chest pain, No palpitations, no edema, no shortness of breath. Gastrointestinal: no new onset incontinence, normal bowel movements reported Genitourinary: no new onset incontinence Musculoskeletal: Back pain, SI joint pain, piriformis pain Psychiatric: normal mood/ affect Neurological: [denies new onset weakness in extremities], [denies new onset balance issues] Objective:: Physical exam: Constitutional: Healthy appearing, well-developed, alert, in no acute distress Psychiatric: Judgment and insight intact, Alert and oriented x4 Mood and affect: Mood normal, affect appropriate Head and face: Inspection: Normocephalic atraumatic, extraocular movement intact Respiratory: Breathing nonlabored, nondyspneic Cardiovascular: No cyanosis, clubbing, or edema observed Skin: Head and neck: Skin with no lesions or rash observed Gait: Able to walk without assistive device: Able to heel and toe walk Neurologic: Sensation grossly intact per patient Musculoskeletal:[Patient has obvious difficulty going from sitting to standing position secondary to pain. Patient states that when she palpates over the area of her SI that is quite painful. Assessment:: Sacroiliitis, piriformis syndrome Plan:: We will set the patient up for right SI joint injection right piriformis injection. Patient is asking from medication however I discussed with her that we will try injection therapies first. Patient understands. We specifically discussed risk factors for Covid-19 including age, heart or lung disease, diabetes, immunosuppression and travel. We also discussed that NSAIDs may worsen Covid-19 infection symptoms and that they should not be used to treat Covid-19 symptoms. Patient was also informed that corticosteroids in any form oral or injectable will decrease immune response and may increase risk of Covid-[address] Krause has reviewed this patient's chart and this note and agrees with plan of care. Patient has been instructed to call the office if they have any issues prior to the next appointment. Dr. Krause has reviewed this note and agrees with this plan of care. This note was dictated using voice recognition software and may contain errors or omissions Time In:: 12:40 Time Out:: 12:50 [facility] History Medical History: Reports:: Anxiety, Depression, Hyperlipidemia, Hypertension, Kidney Stones, Palpitations, Seizures Denies:: Cancer, Diabetes Mellitus Type 1, Diabetes Mellitus Type 2, MRSA *Have you ever received a pneumonia vaccine?: Yes *Have you received a flu vaccine this season?: Yes Other Medical History: Reports: Anemia, Arthritis Other Surgeries: Yes: Hysterectomy-Total, Other (TONSILECTOMY AND CARPUL TUNNEL) Amputation: No Fractu
== END ==
PROVIDERS: Visit Provider Clinical Nurse Specialist Family Health
DX: M46.1 Sacroiliitis, not elsewhere classified (principal); G57.00 Lesion of sciatic nerve, unspecified lower limb
CPT/HCPCS: 99212

== ENCOUNTER 2019-10-15 10:28 | Day surgery (SDC) | payer OTHER, SELFPAY ==
[2019-10-15 10:59] VITALS: BP 124/78; PULSE 60; RESP 18; TEMP 36.9; O2SAT 99
[2019-10-15 11:14] VITALS: BP 115/87; PULSE 85; RESP 18
[2019-10-15 11:16] VITALS: BP 125/78; PULSE 85; RESP 18; O2SAT 98
--- NOTE | 2019-10-15 11:21 | HMH.PMPROC ---
- Procedure Date: 10/15/19 Time: 11:21 Anesthesiologist:: Darrell Krause MD Complications:: None Pre-procedure Diagnosis:: Sacroiliitis and sciatica on the right side with piriformis syndrome Post-procedure Diagnosis:: Same Indications for Procedure:: This patient is a pleasant 59-year-old white female who we have been treating for right-sided hip pain. She does have right-sided sacroiliitis. She has a positive SI joint compression test on the right side. She is positive Praveen's test on the right side. She has a positive Narayan test on the right side. She also has right-sided sciatica. We will do a right SI joint injection right piriformis muscle/sciatic nerve block today to help her with her pain symptoms. Her pain is increased significantly over the last few days affecting her activities of daily living and affecting her function. We will do a right SI joint injection and a right piriformis muscle/sciatic nerve block today to keep her out of the emergency room and also keep her off oral opioids. Procedure Details:: Right SI joint injection under fluoroscopy Informed consent was obtained and the risks and benefits of the procedure was going to the patient. Patient was taken to the procedure room. Patient was placed prone on the procedure table. The right hip was prepped using ChloraPrep. The skin and subcutaneous tissues were anesthetized using lidocaine. I placed a 22-gauge spinal needle into the inferior aspect of the right SI joint. Needle placement was confirmed with dye. After this we injected 5 mL bupivacaine 0.25% and Depo-Medrol 40 mg into the right SI joint. The patient tolerated the procedure well with no complication. Right sciatic nerve block/piriformis nerve block The right buttock was prepped using ChloraPrep. A 25-gauge needle was inserted into the area of the right piriformis muscle and right sciatic nerve. We injected 10 mL bupivacaine 0.25% Depo-Medrol 40 mg into the area of the right sciatic nerve. Patient tolerated the procedure well with no complications. Plan and Disposition:: We will follow-up with her in 2 weeks. Will reevaluate symptoms at that time.
[2019-10-15 11:31] VITALS: BP 139/73; PULSE 55; RESP 20; O2SAT 99
== END 2019-10-15 11:32 | disposition home or self-care (01) ==
LOC: SC.PAINP 10:28
PROVIDERS: PCP Nurse Practitioner Family; Visit Provider Anesthesiology
DX: M46.1 Sacroiliitis, not elsewhere classified (principal); M54.31 Sciatica, right side; I10 Essential (primary) hypertension; Z79.899 Other long term (current) drug therapy; E78.5 Hyperlipidemia, unspecified; F41.9 Anxiety disorder, unspecified
CPT/HCPCS: 27096; 64445; G0260; J1030; Q9966

== ENCOUNTER → 2019-11-01 11:27 | Outpatient (POV) | payer OTHER, SELFPAY ==
[2019-11-01 11:39] VITALS: BP 151/82; PULSE 71; RESP 18; TEMP 36.8; O2SAT 99
--- NOTE | 2019-11-02 08:47 | P.CONS_ITS ---
[facility] Pain Management SOAP Note Subjective:: Patient is a pleasant 59-year-old white female who presents today for follow-up. Patient is having extreme pain rating it an 8 out of 10. She is having difficulty with the right side of her body. Patient states that this is unlike her pain before she is having radiation of the right-sided pain down her leg. Patient and I discussed an epidural steroid injection she would like to move forward with this. Patient and I also discussed the gabapentin for short time. ROS General: no recent weight change, no fever, no sleep disturbances Respiratory: no cough, no shortness of air, no recurring pulmonary infections Cardiovascular/Peripheral Vascular: No chest pain, No palpitations, no edema, no shortness of breath. Gastrointestinal: no new onset incontinence, normal bowel movements reported Genitourinary: no new onset incontinence Musculoskeletal: Back pain, right leg pain Psychiatric: normal mood/ affect Neurological: [denies new onset weakness in extremities], [denies new onset balance issues] Objective:: Physical Exam General: Alert and oriented x3, no acute distress, pleasant and cooperative, [on room air] Lungs: Resps E/U, Symmetrical chest expansion, Eyes: PERRL Musculoskeletal: Flexion and extension of lumbar spine somewhat guarded sec ondary to pain, deep tendon reflexes normal, strength in upper and lower extremities [5/5], [abnormal gait noted] Neurological: speech clear, count room clerk equal, no gross sensory deficits Assessment:: Degenerative disc disease lumbar spine lumbar radiculopathy Plan:: We will plan L4-L5 lumbar epidural steroid injection. With a short prescription of gabapentin 300 mg 1 p.o. 3 times daily for 2 weeks. We will set her up for an injection as soon as possible. If she does not get relief from this we may get an updated MRI. Patient's been instructed to call the office if she has any issues prior to her next appointment. I will follow-up with her after her injection. Dr. Krause has reviewed this note and agrees with this plan of care. This note was dictated using voice recognition software and may contain errors or omissions [facility] History I have reviewed the patient's past medical history: Yes Medical History: Reports:: Anxiety, Depression, Hyperlipidemia, Hypertension, Kidney Stones, Palpitations Denies:: Cancer, Diabetes Mellitus Type 1, Diabetes Mellitus Type 2, MRSA, Se izures *Have you ever received a pneumonia vaccine?: Yes *Have you received a flu vaccine this season?: Yes Other Medical History: Reports: Anemia, Arthritis Other Surgeries: Yes: Hysterectomy-Total, Other (TONSILECTOMY AND CARPUL TUNNEL) Amputation: No Fractures: No - *Social History Smoking Status: Current every day smoker Tobacco Type: cigarettes # Packs/Day (cigarettes): 1 #Yrs smoked (if former smoker): 12 Alcohol Intake: never Alcohol Intake Frequency:: other Substance Use Type: crack/cocaine *Occupational Status:: other Housing: house Household Members: spouse *Travel in the last 8 weeks: None - Psychiatric History Pschychiatric History:: Reports:: Anxiety, Depression Family Hx:: Coronary Artery Disease, Hypertension, Hyperlipidemia
[2019-11-02 08:56] LABS: Covid-19 Nasal PCR Sendout Lex NOT DETECTED
--- NOTE | 2019-11-02 09:55 | PC.NURSE ---
pt notified of negative covid results. CARINA Chacon in pain management notified as well.
== END ==
PROVIDERS: PCP Nurse Practitioner Family; Visit Provider Clinical Nurse Specialist Family Health
DX: M51.16 Intervertebral disc disorders with radiculopathy, lumbar region (principal)
CPT/HCPCS: 99212; U0003

== ENCOUNTER 2019-11-03 13:25 | Day surgery (SDC) | payer OTHER, SELFPAY ==
[2019-11-03 13:51] VITALS: BP 141/75; PULSE 56; RESP 18; TEMP 36.7; O2SAT 100
[2019-11-03 14:06] VITALS: BP 138/89; PULSE 89; RESP 18; O2SAT 98
[2019-11-03 14:07] VITALS: BP 132/85; PULSE 85; RESP 18; O2SAT 98
--- NOTE | 2019-11-03 14:10 | HMH.PMPROC ---
- Procedure Date: 11/03/19 Time: 14:10 Anesthesiologist:: Darrell Krause MD Complications:: None Pre-procedure Diagnosis:: Degenerative disc disease of lumbar spine with lumbar radicular symptoms Post-procedure Diagnosis:: Same Indications for Procedure:: This patient is a pleasant 59-year-old white female who we are treating for low back pain with lumbar radicular symptoms. She did well with her last lumbar epidural steroid injection her pain is starting to come back. She has increasing pain in her back primarily on the right side. It is also radiating down the right leg. We will do repeat lumbar epidural steroid injection today to see if this will help with her pain symptoms. Procedure Details:: Lumbar epidural steroid injection under fluoroscopy Informed consent was obtained and the risk and benefits of the procedure was explained to the patient. The patient was taken to the procedure room. The patient was placed prone on the procedure table. The patient was prepped and draped in sterile fashion. C-arm fluoroscopy was used to view the lumbar spine. Skin and subcutaneous tissues were anesthetized using lidocaine. I placed an 18-gauge epidural needle and advanced into the L4-L5 interspace using fluoroscopic guidance and [id number] to air. After confirmation of needle placement in the epidural space with dye I injected 2 mL of lidocaine 1.5% with Depo-Medrol 80 mg. Patient tolerated the procedure well with no complications. Plan and Disposition:: We will follow-up with her in 2 weeks. Will reevaluate symptoms at that time. She did well with her gabapentin 300 mg 4 times a day. She was given a two-week supply. We will give her an additional 1 month supply with no refills. We will refer her to a neurosurgeon to see if she has allergy which may be addressed by surgery. If not she may be a candidate for spinal cord stimulation.
[2019-11-03 14:16] VITALS: BP 148/89; PULSE 54; RESP 20; O2SAT 100
== END 2019-11-03 14:18 | disposition home or self-care (01) ==
PROVIDERS: PCP Nurse Practitioner Family; Visit Provider Anesthesiology
DX: M51.16 Intervertebral disc disorders with radiculopathy, lumbar region (principal); I10 Essential (primary) hypertension; E78.5 Hyperlipidemia, unspecified; F41.9 Anxiety disorder, unspecified; F32.9 Major depressive disorder, single episode, unspecified; R00.2 Palpitations; D64.9 Anemia, unspecified; Z72.0 Tobacco use
CPT/HCPCS: 62323; J1040; Q9966

== ENCOUNTER → 2019-11-15 15:52 | Outpatient (POV) | payer OTHER, SELFPAY ==
[2019-11-15 15:53] VITALS: BP 122/85; PULSE 85; RESP 18; TEMP 36.6; O2SAT 98
--- NOTE | 2019-11-16 08:16 | HMH.PAINSOAP ---
[facility] Pain Management SOAP Note Subjective:: Patient is a pleasant 59-year-old white female who presents today for follow-up after lumbar epidural steroid injection. Patient did extremely well with her injection rating her pain today a 4 out of 10. Patient is only having right radicular symptomology down her leg. Patient and I discussed a transforaminal injection she like to move forward with this. Patient is also awaiting an appointment with Dr. Munroe. She is continuing gabapentin. Patient and I also briefly discussed a neurostimulator and gave her information in regards to this. ROS General: no recent weight change, no fever, no sleep disturbances Respiratory: no cough, no shortness of air, no recurring pulmonary infections Cardiovascular/Peripheral Vascular: No chest pain, No palpitations, no edema, no shortness of breath. Gastrointestinal: no new onset incontinence, normal bowel movements reported Genitourinary: no new onset incontinence Musculoskeletal: Right leg pain Psychiatric: normal mood/ affect, [denies depression], [denies anxiety] Neurological: [denies new onset weakness in extremities], [denies new onset balance issues] Objective:: Physical Exam General: Alert and oriented x3, no acute distress, pleasant and cooperative, [on room air] Lungs: Resps E/U, Symmetrical chest expansion, Eyes: PERRL Musculoskeletal: Flexion and extension of lumbar spine somewhat guarded secondary to pain, deep tendon reflexes normal, strength in upper and lower extremities [5/5], [abnormal gait noted] Neurological: speech clear, laboratory aide equal, no gross sensory deficits Assessment:: Degenerative disease lumbar spine with right-sided lumbar radiculopathy Plan:: We will schedule patient for a right transforaminal L4-L5 lumbar epidural steroid injection. I will follow-up with her after this reassess her symptoms at that time she is not on any anticoagulation therapy. She is planning to be seen by Dr. Munroe. We will continue her gabapentin for [address] Krause has reviewed this note and agrees with this plan of care. This note was dictated using voice recognition software and may contain errors or omissions [facility] History I have reviewed the patient's past medical history: Yes Medical History: Reports:: Anxiety, Depression, Hyperlipidemia, Hypertension, Kidney Stones, Palpitations Denies:: Cancer, Diabetes Mellitus Type 1, Diabetes Mellitus Type 2, MRSA, Seizures *Have you ever received a pneumonia vaccine?: Yes *Have you received a flu vaccine this season?: Yes Other Medical History: Reports: Anemia, Arthritis Other Surgeries: Yes: Hysterectomy-Total, Other (TONSILECTOMY AND CARPUL TUNNEL) Amputation: No Fractures: No - *Social History Smoking Status: Current every day smoker Tobacco Type: cigarettes # Packs/Day (cigarettes): 1 #Yrs smoked (if former smoker): 12 Alcohol Intake: never Alcohol Intake Frequency:: other Substance Use Type: crack/cocaine *Occupational Status:: other Housing: house Household Members: spouse *Travel in the last 8 weeks: None - Psychiatric History Pschychiatric History:: Reports:: Anxiety, Depression Family Hx:: Coronary Artery Disease, Hypertension, Hyperlipidemia
== END ==
PROVIDERS: PCP Nurse Practitioner Family; Visit Provider Clinical Nurse Specialist Family Health
DX: M51.16 Intervertebral disc disorders with radiculopathy, lumbar region (principal); Z09 Encounter for follow-up examination after completed treatment for conditions other than malignant neoplasm
CPT/HCPCS: 99212

== ENCOUNTER 2019-12-03 10:55 | Day surgery (SDC) | payer OTHER, SELFPAY ==
[2019-12-03 11:29] VITALS: BP 146/86; PULSE 62; RESP 18; O2SAT 100
[2019-12-03 12:01] VITALS: BP 145/85; PULSE 88
[2019-12-03 12:02] VITALS: BP 148/78; PULSE 85; RESP 18; O2SAT 99
--- NOTE | 2019-12-03 12:02 | P.PCN_ITS ---
- Procedure Date: 12/03/19 Time: 12:02 Anesthesiologist:: Darrell Krause MD Complications:: None Pre-procedure Diagnosis:: Degenerative disc disease of lumbar spine with lumbar radiculopathy symptoms down the right side Post-procedure Diagnosis:: Same Indications for Procedure:: This patient is a pleasant 59-year-old white female who we are treating for low back pain and right leg radicular symptoms. She has benefited previously from transforaminal epidural steroid injections done on the right side. Most of her pain is only down the right leg we will do a right L4-L5 and L5-S1 trans foraminal epidural steroid injection today to help her with her pain symptoms that have now returned. Procedure Details:: Right transforaminal epidural steroid injections Informed consent was obtained the risk and benefits of the procedure were explained to the patient. Patient was taken to the procedure room. Back was prepped using ChloraPrep. A 22-gauge spinal needle was inserted into the intervertebral foramen on the right side of L4-5 and L5-S1. Needle placement was confirmed with dye. We then injected 5 mL bupivacaine 0.25% Depo-Medrol 20 mg into each transforaminal epidural space of L4-5 and L5-S1. We use a total of 40 mg Depo-Medrol for both levels. Patient tolerated the procedure well with no complications. Plan and Disposition:: We will follow-up with her in 2 weeks. Will reevaluate symptoms at that time.
[2019-12-03 12:15] VITALS: BP 156/78; PULSE 60; RESP 18; O2SAT 100
== END 2019-12-03 12:15 | disposition home or self-care (01) ==
PROVIDERS: PCP Nurse Practitioner Family; Visit Provider Anesthesiology
DX: M51.16 Intervertebral disc disorders with radiculopathy, lumbar region (principal); I10 Essential (primary) hypertension; F41.9 Anxiety disorder, unspecified; Z72.0 Tobacco use; Z87.19 Personal history of other diseases of the digestive system; Z90.89 Acquired absence of other organs; Z87.39 Personal history of other diseases of the musculoskeletal system and connective tissue; Z90.710 Acquired absence of both cervix and uterus; Z79.899 Other long term (current) drug therapy
CPT/HCPCS: 64483; 64484; J1040; Q9966

== ENCOUNTER → 2019-12-15 07:43 | Outpatient (CLI) | payer OTHER, SELFPAY ==
--- NOTE | 2019-12-15 07:48 | MR_ITS ---
PROCEDURE: MR LUMBAR SPINE WO CON CLINICAL INDICATION: BACK PAIN Low back pain with pain radiating into the right leg and right-sided buttock COMPARISON: SPL[facility]WO MR lumbar spine wo con from 06/02/2018 TECHNIQUE: Standard multiplanar multiecho sequences are performed without contrast. 3-D MIP and myelographic images are also rendered and reviewed FINDINGS: There is normal alignment. The spinal cord ends at the L1 level. L1-L2: Unremarkable. L2-L3: There is mild concentric bulging disc with mild facet and ligamentum hypertrophy. There are type 2 endplate changes.. There is mild lateral recess narrowing on the left. L3-L4: Mild degenerative disc disease with bulging disc and facet and ligamentum hypertrophy with some mild lateral recess narrowing on the right and mild bilateral foraminal narrowing. The bulging disc is very slightly eccentric toward the left not significantly changed. L4-5: Mild degenerative disc disease with bulging disc along with moderate facet and ligamentum hypertrophy. 3 mm anterolisthesis of L4. There is moderate right-sided facet hypertrophic change similar to the previous exam with mild bilateral foraminal narrowing. L5-S1: Mild degenerative disc disease with bulging disc and small broad-based central disc protrusion along with facet and ligamentum hypertrophy. IMPRESSION: 1. Mild multilevel lumbar spondylosis with degenerative disc disease, bulging disc, and facet and ligamentum hypertrophy with mild lateral recess and foraminal narrowing overall not significantly changed. Please see above for detailed description at each level. 2. No disc herniation or canal stenosis Dictated by: Maksim Lea MD 12/16/2019 12:35 Electronically signed by Maksim Lea MD in [place] 12/16/2019 12:35
== END ==
PROVIDERS: PCP Nurse Practitioner Family; Visit Provider Clinical Nurse Specialist Family Health
DX: M54.5 Low back pain (principal)
CPT/HCPCS: 72148; 76376

== ENCOUNTER → 2019-12-21 11:19 | Outpatient (POV) | payer OTHER, SELFPAY ==
[2019-12-21 12:18] VITALS: BP 126/57; PULSE 68; RESP 18; O2SAT 99
--- NOTE | 2019-12-21 12:50 | HMH.PAINSOAP ---
[facility] Pain Management SOAP Note Subjective:: Patient is a pleasant 59-year-old white female who we are treating for low back pain with right leg radicular symptoms. Patient is following up after a epidural steroid injection. Patient did not get any relief from this. Patient is not gotten any relief from her last several injections. She rates her pain a 7 out of 10. Patient just got a new MRI showing mild degenerative disc changes right-sided facet hypertrophy and ligamentum hypertrophy. She is tried gabapentin and it is not relieving her pain. Patient is awaiting a neurosurgical consultation. We also have discussed a neurostimulator. Patient wants to move forward with a psychological evaluation for this. We will also send her to physical therapy. ROS General: no recent weight change, no fever, no sleep disturbances Respiratory: no cough, no shortness of air, no recurring pulmonary infections Cardiovascular/Peripheral Vascular: No chest pain, No palpitations, no edema, no shortness of breath. Gastrointestinal: no new onset incontinence, normal bowel movements reported Genitourinary: no new onset incontinence Musculoskeletal: Back pain, leg pain Psychiatric: normal mood/ affect, Neurological: [denies new onset weakness in extremities], [denies new onset balance issues] Objective:: Physical Exam General: Alert and oriented x3, no acute distress, pleasant and cooperative, [on room air] Lungs: Resps E/U, Symmetrical chest expansion, Eyes: PERRL Musculoskeletal: Flexion and extension of lumbar spine somewhat guarded secondary to pain, deep tendon reflexes normal, strength in upper and lower extremities [5/5], [abnormal gait noted] Neurological: speech clear, commercial real estate broker equal, no gross sensory deficits Assessment:: Degenerative disc disease lumbar spine lumbar radiculopathy Plan:: I will schedule the patient for psychological evaluation to determine if she is a candidate for a neurostimulator. We will still send her for neurosurgical consultation and start her in physical therapy. We will follow-up with her after this reassess her symptoms at that time she has been instructed to call the office if she has any issues prior to her next appointment. Dr. Krause has reviewed this note and agrees with this plan of care. This note was dictated using voice recognition software and may contain errors or omissions [facility] History I have reviewed the patient's past medical history: Yes Medical History: Reports:: Anxiety, Depression, Hyperlipidemia, Hypertension, Kidney Stones, Palpitations Denies:: Cancer, Diabetes Mellitus Type 1, Diabetes Mellitus Type 2, MRSA, Seizures *Have you ever received a pneumonia vaccine?: Yes *Have you received a flu vaccine this season?: Yes Other Medical History: Reports: Anemia, Arthritis Other Surgeries: Yes: Hysterectomy-Total, Other (TONSILECTOMY AND CARPUL TUNNEL) Amputation: No Fractures: No - *Social History Smoking Status: Current every day smoker Tobacco Type: cigarettes # Packs/Day (cigarettes): 1 #Yrs smoked (if former smoker): 12 Alcohol Intake: never Alcohol Intake Frequency:: other Substance Use Type: crack/cocaine *Occupational Status:: other Housing: house Household Members: spouse *Travel in the last 8 weeks: None - Psychiatric History Pschychiatric History:: Reports:: Anxiety, Depression Family Hx:: Coronary Artery Disease, Hypertension, Hyperlipidemia
== END ==
PROVIDERS: PCP Nurse Practitioner Family; Visit Provider Clinical Nurse Specialist Family Health
DX: M51.16 Intervertebral disc disorders with radiculopathy, lumbar region (principal)
CPT/HCPCS: 99212

== ENCOUNTER → 2020-01-03 12:37 | Outpatient (POV) | payer OTHER, SELFPAY | PROVIDERS: Visit Provider Nurse Practitioner Family | DX: Z00.00 Encounter for general adult medical examination without abnormal findings (principal) ==

== ENCOUNTER 2020-01-03 14:47 | Outpatient (RCR) | payer OTHER, SELFPAY ==
--- NOTE | 2020-01-03 15:41 | HMH.PTOPEV ---
PT Outpatient Evaluation Rehab PT Outpatient Evaluation Start: 01/03/20 14:58 Freq: Status: Active Protocol: Document 01/03/20 15:17 AVAMARYBETH (Rec: 01/03/20 15:41 JOYFRANTZ [id number]) Electronically Signed By Sammy Marie PT 01/03/20 15:17 Outpatient Therapy Subjective History Subjective History This is the inital Physical Therapy evaluation for Michelle Harley. Pt is a 61 y/o female referred to PT for c/o LBP w/ RLE pain and paresthesia. Pt reports long Hx of LBP but reports this bout began w/ insidious onset ~2-3 months ago. Pt reports constant pain in RLE. Pt reports pain travels from buttocks into calf. Chief Complaint Pain,Stiff,Paresthesia Symptom Type Ache,Throb,Sharp,Dull,Stabbing ,Burning,Numbness,Tingling Symptoms Relieved By Nothing Symptoms Aggravated By Standing,Bending/Stooping, Physical Activity,Lifting Prior Functional Limitations None Current Functional Limitations Lifting,Housework,Sleeping, Squatting,Recreation Activity, Walking,Bending/Stooping Symptom Description Constant but Variable Level of pain today (0-10) 6 Pain scale - at its best (0-10) 4 Pain scale - at its worst (0-10) 10 Lumbopelvic Eval Posture Thoracic Spine Posture Standing Position Neutral Lumbar Spine Posture Standing Position Neutral Assistive device Assistive Devices None / NA Palapation tenderness right thoracic spinal tenderness No lumbar spinal tenderness Yes paraspinal tenderness Yes buttock tenderness No Lumbar/Sacral Palpation Findings Muscle Guarding Range of Motion Lumbar Spine Active Flexion Range of 80 w/pain Motion (degrees) Lumbar Spine Active Extension Range of 15 Motion (degrees) Left Lumbar Spine Lateral Flexion Active 25 w/ pain Range of Motion (degrees) Right Lumbar Spine Lateral Flexion 25 Active Range of Motion (degrees) Lumbar Spine ROM Limitations Pain Lumbar Spine ROM Reason Not Measured Within Functional Limits Special Tests Lumbar Spine Screen Positive Forward Bending Test- Standing Positive Right Forward Bending Test- Sitting Positive Right Sciatic Nerve Tension Test Positive Right Unilateral Straight Leg Raise (Lasegue) Positive Right Test Lumbar [place] Distraction Test/Manual Positive Traction
== END 2020-01-03 14:55 | disposition home or self-care (01) ==
LOC: PT 14:47
PROVIDERS: PCP Nurse Practitioner Family; Visit Provider Clinical Nurse Specialist Family Health
DX: M54.5 Low back pain (principal)
CPT/HCPCS: 97010; 97014; 97110; 97163; G0283

== ENCOUNTER → 2020-01-06 08:18 | Outpatient (CLI) | payer OTHER, SELFPAY ==
--- NOTE | 2020-01-06 08:29 | US_ITS ---
PROCEDURE: US ABDOMEN LIMITED CLINICAL INDICATION: ABN RESULTS OF LIVER FUNCTION STUDIES COMPARISON: RUQ US RUQ-(ABD LTD)1ORGAN/QUAD/FU from 09/16/2016 FINDINGS: PANCREAS: Unremarkable. No obvious mass or abnormal fluid collection. No ductal dilatation LIVER: No focal liver lesions demonstrated. Homogeneous echogenicity. No intrahepatic biliary ductal dilatation evident. There is appropriate direction of blood flow within a non dilated portal vein RIGHT KIDNEY: Unremarkable. Normal size and echogenicity. No hydronephrosis GALLBLADDER: No gallstones, gallbladder wall thickening, pericholecystic fluid, or biliary dilatation. IMPRESSION: Unremarkable limited abdominal ultrasound as detailed above disc Dictated by: Maksim Lea MD 01/06/2020 15:13 Electronically signed by Maksim Lea MD in [place] 01/06/2020 15:13
[2020-01-06 09:04] LABS: Basophils # 0.1 K/mm3 (0-0.2); Basophils % 0.7 % (0.1-2.0); Eosinophils # 0.1 K/mm3 (0.0-0.4); Hematocrit 39.4 % (37.0-47.0); Lymphocytes # 1.5 K/mm3 (0.7-4.5); Lymphocytes % 22.9 % (10-50); Mean Corpuscular HGB Conc 35.6 g/dL (31.8-35.4); Mean Corpuscular Hemoglobin 32.3 pg (27.0-31.2); Mean Corpuscular Volume 90.9 fl (81-99); Mean Platelet Volume 8.2 fl (7.4-10.4); Monocytes # 0.3 K/mm3 (0.1-1.0); Monocytes % 4.2 % (1.7-9.3); Neutrophils # 4.6 K/mm3 (1.8-7.8); Neutrophils % 71.2 % (37.0-80.0); Platelet Count 225 K/mm3 (142-424); Red Blood Count 4.34 M/mm3 (4.20-5.40); Red Cell Distribution Width 13.3 % (11.5-17.5); White Blood Count 6.5 K/mm3 (4.8-10.8)
[2020-01-06 09:20] LABS: INR 0.97 (0.9-1.1)
[2020-01-06 09:30] LABS: Chloride 108 mmol/L (98-107); Potassium 4.8 mmoL/L (3.5-5.1); Sodium 141 mmol/L (136-145)
[2020-01-06 09:32] LABS: Amylase 31 U/L (30-110)
[2020-01-06 09:33] LABS: Alanine Aminotransferase 51 U/L (12-78); Albumin/Globulin Ratio 1.7 (1.1-1.8); Alkaline Phosphatase 144 U/L (38-126); Anion Gap 5.8 mEq/L (5-15); Aspartate Amino Transferase 48 U/L (14-36); Bilirubin,Total 0.4 mg/dl (0.2-1.3); Blood Urea Nitrogen 15 mg/dl (7-17); Calcium 10.7 mg/dl (8.4-10.2); Carbon Dioxide 32 mmol/L (22.0-30.0); Estimated Glomerular Filt Rate 103 ml/min (>60); GFR (African American) 125 ML/MIN (>60); Globulin 2.3 g/dL (1.3-3.2); Glucose 106 mg/dl (74-100); Iron 90 ug/dL (37-170); Lipase 69 U/L (23-300); Total Protein,Serum 6.3 g/dl (6.3-8.2)
[2020-01-06 09:41] LABS: Total Iron Binding Capacity 294 ug/dL (265-497)
[2020-01-06 10:09] LABS: Ferritin 73.1 ng/ml (11.1-264)
[2020-01-07 10:22] LABS: Hep A Ab, IgM Negative (Negative); Hepatitis B Core Antibody IgM Negative (Negative); Hepatitis B Surface Antigen Negative (Negative)
[2020-01-07 11:14] LABS: Hepatitis C Antibody <0.1 s/co ratio (0.0-0.9)
[2020-01-07 14:51] LABS: Ceruloplasmin 21.6 mg/dL (19.0-39.0); Immunoglobulin A, Qn 158 mg/dL (87-352); Immunoglobulin G, Qn 819 mg/dL (586-1602)
[2020-01-07 16:39] LABS: Actin (Smooth Muscle) Antibody 8 Units (0-19); Immunoglobulin M, Qn 127 mg/dL (26-217); Liver-Kidney Microsomal Ab 1.1 Units (0.0-20.0); Mitochondrial (M2) Antibody <20.0 Units (0.0-20.0)
[2020-01-07 16:47] LABS: Angiotensin Converting Enzyme <15 U/L (14-82)
[2020-01-07 17:04] LABS: Deamidated Gliadin Abs, IgA 4 units (0-19); Deamidated Gliadin Abs, IgG 3 units (0-19); Endomysial IgA Antibody Negative (Negative); Tissue Transglutaminase IgA Ab <2 U/mL (0-3); Tissue Transglutaminase IgG Ab <2 U/mL (0-5)
[2020-01-08 08:50] LABS: Reticulin IgA Antibody Negative titer (Neg:<1:2.5)
[2020-01-09 08:52] LABS: Antinuclear Antibodies, IFA Negative (.)
[2020-01-10 23:44] LABS: Alpha-1-Antitrypsin 128 mg/dL (101-187)
[2020-01-11 06:42] LABS: Phenotype (PI) MS (.)
[2020-01-11 06:58] LABS: ALT (SGPT) P5P 47 IU/L (0-40); AST (SGOT) P5P 50 IU/L (0-40); Alpha 2-Macroglobulins, Qn 152 mg/dL (110-276); Apolipoprotein A-1 161 mg/dL (116-209); Bilirubin, Total 0.2 mg/dL (0.0-1.2); Cholesterol, Total 184 mg/dL (100-199); Fibrosis Score 0.07 (0.00-0.21); GGT 29 IU/L (0-60); Glucose 103 mg/dL (65-99); Haptoglobin 108 mg/dL (33-346); Steatosis Grade S1 - Mild Steatosis (.); Triglycerides 136 mg/dL (0-149)
== END ==
PROVIDERS: PCP Nurse Practitioner Family; Visit Provider Nurse Practitioner Family
DX: R94.5 Abnormal results of liver function studies (principal); R11.0 Nausea; R14.0 Abdominal distension (gaseous); K76.0 Fatty (change of) liver, not elsewhere classified; K59.00 Constipation, unspecified
CPT/HCPCS: 36415; 76705; 80053; 80074; 81256; 82103; 82104; 82150; 82164; 82390; 82728; 82784; 83516; 83540; 83550; 83690; 85025; 85610; 86038; 86255; 86256; 86376

== ENCOUNTER → 2020-01-19 10:13 | Outpatient (CLI) | payer OTHER, SELFPAY ==
[2020-01-19 10:30] LABS: Blood Urea Nitrogen 10 mg/dl (7-17); Estimated Glomerular Filt Rate 103 ml/min (>60); GFR (African American) 125 ML/MIN (>60)
--- NOTE | 2020-01-19 10:32 | CT_ITS ---
PROCEDURE: CT ABDOMEN PELVIS W CON CLINICAL INDICATION: BLOATING,ABN LIVER FUNCTION,ABD PAIN,CONSTIPATION COMPARISON: ABDPELW CT abdomen pelvis w con from 08/17/2018 TECHNIQUE: IV Contrast: 75ML OPTIRAY 350 Oral Contrast None Axial images obtained with sagittal and coronal reformats. All CT scans at the facility use one or more dose reduction, viz: automated exposure control, ma/kV adjustment per patient size (including targeted exams where dose is matched to indication, i.e. head), or iterative reconstruction technique. FINDINGS: LOWER THORAX: Patchy atelectasis or infiltrate is present in the right lung base with minimal atelectatic change in the left lung base. ABDOMEN & PELVIS: The liver, spleen, gallbladder, right adrenal gland, and pancreas have an unremarkable appearance. There is minimal nodularity of the left adrenal gland superiorly not significantly changed. No renal or ureteral calculi. No hydronephrosis. There are small bilateral renal cysts. No intestinal obstruction or free air. There is a moderate amount of retained colonic feces. No evidence of appendicitis or diverticulitis. Prior hysterectomy.. Small bone island is present in the left ilium. There are mild degenerative changes of the hips with prominent osteophyte formation along the left acetabulum laterally and posteriorly IMPRESSION: 1. No acute abdominal or pelvic findings. 2. Atelectasis or infiltrate in the right lung base. 3. Moderate amount of retained colonic feces in the ascending and transverse colon Dictated by: Maksim Lea MD 01/20/2020 11:43 Electronically signed by Maksim Lea MD in [place] 01/20/2020 11:43
== END ==
PROVIDERS: PCP Nurse Practitioner Family; Visit Provider Nurse Practitioner Family
DX: R10.84 Generalized abdominal pain (principal); R94.5 Abnormal results of liver function studies; R14.0 Abdominal distension (gaseous); K59.00 Constipation, unspecified
CPT/HCPCS: 36415; 74177; 82565; 84520; Q9967

== ENCOUNTER → 2020-02-24 13:17 | Outpatient (POV) | payer OTHER, SELFPAY ==
[2020-02-24 13:57] VITALS: BP 125/85; PULSE 74; RESP 18; O2SAT 98; BMI 28.4
--- NOTE | 2020-02-24 14:11 | P.CONS_ITS ---
[facility] Pain Management SOAP Note Subjective:: Is a 59-year-old white female who we are treating for low back pain with right leg radicular symptoms. Patient does get some relief from her epidural steroid injections up to 80%. She rates her pain an 8 out of 10. Patient and I discussed neurostimulator in the past. I do believe that would benefit her. She is asking for medication today. We will switch her gabapentin to Lyrica due to swelling. We will start her on Lyrica 75 mg 1 p.o. 3 times daily. We will send the patient for psychological evaluation to determine if she is a good candidate for neuro stimulation. Also set her up with physical therapy and on repeat lumbar epidural steroid injection. ROS General: no recent weight change, no fever, no sleep disturbances Respiratory: no cough, no shortness of air, no recurring pulmonary infections Cardiovascular/Peripheral Vascular: No chest pain, No palpitations, no edema, no shortness of breath. Gastrointestinal: no new onset incontinence, normal bowel movements reported Genitourinary: no new onset incontinence Musculoskeletal: Back pain, leg pain Psychiatric: normal mood/ affect, Neurological: [denies new onset weakness in extremities], [denies new onset balance issues] Objective:: Physical Exam General: Alert and oriented x3, no acute distress, pleasant and cooperative, [on room air] Lungs: Resps E/U, Symmetrical chest expansion, Eyes: PERRL Musculoskeletal: Flexion and extension of lumbar spine somewhat guarded secondary to pain, deep tendon reflexes normal, strength in upper and lower extremities [5/5], [abnormal gait noted] Neurological: speech clear, teaching supervisor equal, no gross sensory deficits Assessment:: Degenerative disc disease lumbar spine lumbar radiculopathy Plan:: We will schedule the patient for a lumbar epidural steroid injection at L4-L5. We will switch her to Lyrica 75 mg 1 p.o. 3 times daily due to side effects to the gabapentin. We will send her for psychological evaluation to determine if she is a candidate for a neurostimulator. I will follow-up with her after this reassess her symptoms at that time. She will also be set up with physical therapy. Dr. Krause has reviewed this note and agrees with this plan of care. This note was dictated using voice recognition software and may contain errors or omissions [facility] History I have reviewed the patient's past medical history: Yes Medical History: Reports:: Anxiety, Depression, Hyperlipidemia, Hypertension, Kidney Stones, Palpitations Denies:: Cancer, Diabetes Mellitus Type 1, Diabetes Mellitus Type 2, MRSA, Seizures *Have you ever received a pneumonia vaccine?: Yes *Have you received a flu vaccine this season?: Yes Other Medical History: Reports: Anemia, Arthritis Other Surgeries: Yes: Hysterectomy-Total, Other (TONSILECTOMY AND CARPUL TUNNEL) Amputation: No Fractures: No - *Social History Smoking Status: Current every day smoker Tobacco Type: cigarettes # Packs/Day (cigarettes): 1 #Yrs smoked (if former smoker): 12 Alcohol Intake: never Alcohol Intake Frequency:: other Substance Use Type: crack/cocaine *Occupational Status:: other Housing: house Household Members: spouse *Travel in the last 8 weeks: None - Psychiatric History Pschychiatric History:: Reports:: Anxiety, Depression Family Hx:: Coronary Artery Disease, Hypertension, Hyperlipidemia
== END ==
PROVIDERS: PCP Nurse Practitioner Family; Visit Provider Clinical Nurse Specialist Family Health
DX: M51.16 Intervertebral disc disorders with radiculopathy, lumbar region (principal)
CPT/HCPCS: 99212

== ENCOUNTER 2020-03-23 17:00 | Outpatient (RCR) | payer OTHER, SELFPAY ==
--- NOTE | 2020-03-02 17:08 | HMH.PTOPEV ---
PT Outpatient Evaluation Rehab PT Outpatient Evaluation Start: 03/02/20 15:57 Freq: Status: Active Protocol: Document 03/02/20 15:57 JOYFRANTZ (Rec: 03/02/20 17:08 VÍCTOR [id number]) Electronically Signed By Sammy Marie PT 03/02/20 15:57 Outpatient Therapy Subjective History Subjective History This is the initial Physical Therapy evaluation for Landen Harley. Pt is a 59 y/o female referred to PT for c/o chronic LBP and RLE radiculopathy. Pt reports she has dealt with back pain for years and has had many injxns w/ some relief. Pt reports the last 6 months pain has steadily increased into RLE insidiously. Pt reports pain mostly stays in R hamstring but can spread into R calf muscle. Pt reports she has been in discussion w/ Pain Management for possible neuro-stimulator implant. Chief Complaint Pain,Paresthesia Symptom Type Ache,Throb,Sharp,Numbness, Tingling Symptoms Relieved By Nothing Symptoms Aggravated By Standing,Physical Activity, Walking Prior Functional Limitations None Current Functional Limitations Housework,Standing,Recreation Activity,Walking Symptom Description Constant but Variable Level of pain today (0-10) 5 Pain scale - at its best (0-10) 4 Pain scale - at its worst (0-10) 8 Lumbopelvic Eval Posture Lumbar Spine Posture Standing Position Flattened Assistive device Assistive Devices None / NA Palapation tenderness right lumbar spinal tenderness Yes paraspinal tenderness Yes buttock tenderness Yes Lumbar/Sacral Palpation Findings Tenderness,Muscle Guarding Accessory Movement L3 bilateral L4 bilateral L5 bilateral S1 right Range of Motion Lumbar Spine Active Flexion Range of 80 w/ pain in RLE Motion (degrees) Lumbar Spine Active Extension Range of 10 Motion (degrees) Left Lumbar Spine Lateral Flexion Active 25 w/ pain in RLE Range of Motion (degrees) Right Lumbar Spine Lateral Flexion 25 Active Range of Motion (degrees) Lumbar Spine ROM Limitations Pain Lumbar Spine ROM Reason Not Measured
== END 2020-03-23 18:02 | disposition home or self-care (01) ==
LOC: PT 17:00
PROVIDERS: PCP Nurse Practitioner Family; Visit Provider Clinical Nurse Specialist Family Health
DX: M54.5 Low back pain (principal)
CPT/HCPCS: 97010; 97012; 97014; 97110; 97163; G0283

== ENCOUNTER 2020-03-24 11:05 | Day surgery (SDC) | payer OTHER, SELFPAY ==
[2020-03-24 12:16] VITALS: BP 143/65; PULSE 58; RESP 18; O2SAT 100; BMI 21.6
[2020-03-24 12:26] VITALS: BP 138/89; PULSE 85; RESP 18
[2020-03-24 12:27] VITALS: BP 139/78; PULSE 85; RESP 18; O2SAT 98
--- NOTE | 2020-03-24 12:30 | HMH.PMPROC ---
- Procedure Date: 03/24/20 Time: 12:30 Anesthesiologist:: Darrell Krause MD Complications:: None Pre-procedure Diagnosis:: Degenerative disc disease of lumbar spine with lumbar radicular symptoms in particular down the right leg Post-procedure Diagnosis:: Same Indications for Procedure:: Patient is a pleasant 59-year-old white female who we are treating for low back pain with lumbar radicular symptoms. She does have increasing pain down her right leg. She is on Lyrica 75 mg 3 times a day which is helping. She is done well with lumbar epidural steroid injections in the past. We also talked about neurostimulation. Will do lumbar epidural steroid injection today. We will plan on a spinal cord stimulator trial with [employer] system in the future. Procedure Details:: Lumbar epidural steroid injection under fluoroscopy Informed consent was obtained and the risk and benefits of the procedure was explained to the patient. The patient was taken to the procedure room. The patient was placed prone on the procedure table. The patient was prepped and draped in sterile fashion. C-arm fluoroscopy was used to view the lumbar spine. Skin and subcutaneous tissues were anesthetized using lidocaine. I placed an 18-gauge epidural needle and advanced into the L4-L5 interspace using fluoroscopic guidance and [id number] to air. After confirmation of needle placement in the epidural space with dye I injected 2 mL of lidocaine 1.5% with Depo-Medrol 80 mg. Patient tolerated the procedure well with no complications. Plan and Disposition:: Patient has had a successful psychological evaluation. She is not getting long-term relief with epidural steroid injections. We will plan on a [employer] spinal cord stimulator trial to help with her low back pain and right leg pain.
[2020-03-24 12:35] VITALS: BP 155/73; PULSE 56; RESP 18; O2SAT 100
== END 2020-03-24 12:35 | disposition home or self-care (01) ==
LOC: SC.PAINP 11:10
PROVIDERS: PCP Nurse Practitioner Family; Visit Provider Anesthesiology
DX: M51.16 Intervertebral disc disorders with radiculopathy, lumbar region (principal); I10 Essential (primary) hypertension; F41.9 Anxiety disorder, unspecified; K21.9 Gastro-esophageal reflux disease without esophagitis; E78.5 Hyperlipidemia, unspecified; Z86.39 Personal history of other endocrine, nutritional and metabolic disease; F32.9 Major depressive disorder, single episode, unspecified; Z90.89 Acquired absence of other organs; Z90.710 Acquired absence of both cervix and uterus; Z82.49 Family history of ischemic heart disease and other diseases of the circulatory system; Z79.899 Other long term (current) drug therapy; Z72.0 Tobacco use
CPT/HCPCS: 62323; J1040; Q9966

== ENCOUNTER → 2020-04-24 11:03 | Outpatient (POV) | payer OTHER, SELFPAY ==
[2020-04-24 11:31] VITALS: BP 133/85; PULSE 85; RESP 18; O2SAT 98; BMI 20.7
--- NOTE | 2020-04-24 12:40 | P.CONS_ITS ---
[facility] Pain Management SOAP Note Subjective:: She is a pleasant 59-year-old white female who we are treating for low back pain. Patient just got denied for her spinal cord stimulator. Patient was a good candidate according to her psychological evaluation and her symptomology however due to the fact she has not had failed back syndrome she was denied by her insurance. She is currently on Lyrica 75 mg 1 p.o. 3 times daily she states this does not help much. She rates her pain a 7 out of 10 patient has had multiple lumbar epidural steroid injections with no long-term relief. Patient I discussed a surgical consultation. We will send her to a surgeon. She has had a recent MRI. ROS General: no recent weight change, no fever, no sleep disturbances Respiratory: no cough, no shortness of air, no recurring pulmonary infections Cardiovascular/Peripheral Vascular: No chest pain, No palpitations, no edema, no shortness of breath. Gastrointestinal: no new onset incontinence, normal bowel movements reported Genitourinary: no new onset incontinence Musculoskeletal: Back pain, leg pain Psychiatric: normal mood/ affect Neurological: [denies new onset weakness in extremities], [denies new onset balance issues] Objective:: Physical Exam General: Alert and oriented x3, no acute distress, pleasant and cooperative, [on room air] Lungs: Resps E/U, Symmetrical chest expansion, Eyes: PERRL Musculoskeletal: Flexion and extension of lumbar spine somewhat guarded secondary to pain, deep tendon reflexes normal, strength in upper and lower extremities [5/5], [abnormal gait noted] Neurological: speech clear, dental surgeon equal, no gross sensory deficits Assessment:: Degenerative disc disease lumbar spine lumbar radiculopathy Plan:: Patient is failed epidural steroid injections, transforaminal injections, other modalities of treatment. She would like to switch from her Lyrica back to her gabapentin we will put her on gabapentin 300 mg 1 p.o. 3 times daily. Patient got denied for her neurostimulator. We will send her to a surgeon for consulta tion. Follow-up with her after that reassess her symptoms at that time she has been instructed to call the office if she has any issues prior to her next appointment. Dr. Krause has reviewed this note and agrees with this plan of care. This note was dictated using voice recognition software and may contain errors or omissions [facility] History I have reviewed the patient's past medical history: Yes Medical History: Reports:: Anxiety, Depression, Hyperlipidemia, Hypertension, Kidney Stones, Palpitations Denies:: Cancer, Diabetes Mellitus Type 1, Diabetes Mellitus Type 2, MRSA, Seizures *Have you ever received a pneumonia vaccine?: Yes *Have you received a flu vaccine this season?: Yes Other Medical History: Reports: Anemia, Arthritis Other Surgeries: Yes: Hysterectomy-Total, Other (TONSILECTOMY AND CARPUL TUNNEL) Amputation: No Fractures: No - *Social History Smoking Status: Current every day smoker Tobacco Type: cigarettes # Packs/Day (cigarettes): 1 #Yrs smoked (if former smoker): 12 Alcohol Intake: never Alcohol Intake Frequency:: other Substance Use Type: other *Occupational Status:: other Housing: house Household Members: spouse *Travel in the last 8 weeks: None - Psychiatric History Pschychiatric History:: Reports:: Anxiety, Depression Family Hx:: Coronary Artery Disease, Hypertension, Hyperlipidemia
== END ==
PROVIDERS: PCP Nurse Practitioner Family; Visit Provider Clinical Nurse Specialist Family Health
DX: M51.16 Intervertebral disc disorders with radiculopathy, lumbar region (principal)
CPT/HCPCS: 99212

== ENCOUNTER → 2020-07-31 11:22 | Outpatient (POV) | payer OTHER, SELFPAY ==
--- NOTE | 2020-07-31 12:03 | HMH.PAINSOAP ---
[facility] Pain Management SOAP Note Subjective:: Patient is pleasant 59-year-old white female who presents today to discuss plan of care. Patient is tearful today. Patient wants to discuss her recent use of pain pills that she bought off the street. Patient states that she has no memory of Lázaro due to taking medication which she is unsure of what it was. I did mention to her that I do believe Suboxone therapy would be beneficial for her. Patient is on gabapentin and diazepam. I told her that we would continue this at this time on the premise that she would move forward with Suboxone therapy. Patient is currently in therapy. I encouraged this. She is also being seen by a neurosurgeon at this time. ROS General: no recent weight change, no fever, no sleep disturbances Respiratory: no cough, no shortness of air, no recurring pulmonary infections Cardiovascular/Peripheral Vascular: No chest pain, No palpitations, no edema, no shortness of breath. Gastrointestinal: no new onset incontinence, normal bowel movements reported Genitourinary: no new onset incontinence Musculoskeletal: Back pain, leg pain Psychiatric: normal mood/ affect Neurological: [denies new onset weakness in extremities], [denies new onset balance issues] Objective:: Physical Exam General: Alert and oriented x3, no acute distress, pleasant and cooperative, [on room air] Lungs: Resps E/U, Symmetrical chest expansion, Eyes: PERRL Musculoskeletal: Flexion and extension of lumbar spine somewhat guarded secondary to pain, deep tendon reflexes normal, strength in upper and lower extremities [5/5], [abnormal gait noted] Neurological: speech clear, pediatric genetic counselor equal, no gross sensory deficits Assessment:: Degenerative disc disease lumbar spine lumbar radiculopathy Plan:: We will look into how we need to assist the patient and get to getting into Suboxone therapy. We will continue her gabapentin at this time 300 mg 1 p.o. 3 times daily we will give her 2 months worth of medication. This is contingent on her moving forward with Suboxone therapy. She is also to continue with her neurosurgeon. I will follow-up with her in 2 months reassess her symptoms at that time she has been instructed to call the office if she has any issues prior to her next appointment. Dr. Krause has reviewed this note and agrees with this plan of care. This note was dictated using voice recognition software and may contain errors or omissions [facility] History I have reviewed the patient's past medical history: Yes Medical History: Reports:: Anxiety, Depression, Hyperlipidemia, Hypertension, Kidney Stones, Palpitations Denies:: Cancer, Diabetes Mellitus Type 1, Diabetes Mellitus Type 2, MRSA, Seizures *Have you ever received a pneumonia vaccine?: Yes *Have you received a flu vaccine this season?: Yes Other Medical History: Reports: Anemia, Arthritis Other Surgeries: Yes: Hysterectomy-Total, Other (TONSILECTOMY AND CARPUL TUNNEL) Amputation: No Fractures: No - *Social History Smoking Status: Current every day smoker Tobacco Type: cigarettes # Packs/Day (cigarettes): 1 #Yrs smoked (if former smoker): 12 Alcohol Intake: never Alcohol Intake Frequency:: other Substance Use Type: other *Occupational Status:: other Housing: house Household Members: spouse *Travel in the last 8 weeks: None - Psychiatric History Pschychiatric History:: Reports:: Anxiety, Depression Family Hx:: Coronary Artery Disease, Hypertension, Hyperlipidemia
[2020-07-31 12:12] VITALS: BP 133/85; PULSE 77; RESP 18; TEMP 36.8; O2SAT 98; BMI 21.6
== END ==
PROVIDERS: PCP Nurse Practitioner Family; Visit Provider Clinical Nurse Specialist Family Health
DX: M51.16 Intervertebral disc disorders with radiculopathy, lumbar region (principal)
CPT/HCPCS: 99212; G0463

== ENCOUNTER → 2020-09-29 12:51 | Outpatient (CLI) | payer OTHER, SELFPAY ==
[2020-09-29 15:01] LABS: Alanine Aminotransferase 23 U/L (12-78); Albumin Level 4.2 g/dl (3.5-5.0); Alkaline Phosphatase 182 U/L (38-126); Aspartate Amino Transferase 30 U/L (14-36); Bilirubin,Indirect 0.4 mg/dL (0.0-0.9); Bilirubin,Total 0.4 mg/dl (0.2-1.3); Bilirubin,Unconjugated 0.4 mg/dL (0.0-1.1); Total Protein,Serum 6.8 g/dl (6.3-8.2)
== END ==
PROVIDERS: Visit Provider Nurse Practitioner Family
DX: K75.81 Nonalcoholic steatohepatitis (NASH) (principal)
CPT/HCPCS: 36415; 80076

== ENCOUNTER → 2020-10-09 13:48 | Outpatient (POV) | payer OTHER, SELFPAY | PROVIDERS: Visit Provider Nurse Practitioner Family | DX: Z00.00 Encounter for general adult medical examination without abnormal findings (principal) ==

== ENCOUNTER → 2020-10-12 12:22 | Outpatient (CLI) | payer OTHER, SELFPAY ==
[2020-10-12 12:29] LABS: Adenovirus F 40/41, stool Not Detected (NotDetected); Astrovirus Not Detected (NotDetected); Campylobacter Not Detected (NotDetected); Clostridium Difficile A/B, PCR Not Detected (NotDetected); Cryptosporidium Not Detected (NotDetected); Cyclospora Cayetanesis Not Detected (NotDetected); Entamoeba histolytica Not Detected (NotDetected); Enteroaggregative E coli Not Detected (NotDetected); Enteropathogenic E coli Not Detected (NotDetected); Enterotoxigenic E coli Not Detected (NotDetected); Giardia lamblia Not Detected (NotDetected); Norovirus Not Detected (NotDetected); Plesimonas Shigalloides, PCR Not Detected (NotDetected); Rotavirus A Not Detected (NotDetected); Salmonella, PCR Not Detected (NotDetected); Sapovirus Not Detected (NotDetected); Shiga-like toxin E coli Not Detected (NotDetected); Shigella Enterovasive E coli Not Detected (NotDetected); Vibrio Cholerae Not Detected (NotDetected); Vibrio, PCR Not Detected (NotDetected); Yersinia Entercolitica, PCR Not Detected (NotDetected)
== END ==
PROVIDERS: Visit Provider Nurse Practitioner Family
DX: R19.7 Diarrhea, unspecified (principal); K75.81 Nonalcoholic steatohepatitis (NASH); R19.4 Change in bowel habit; R15.2 Fecal urgency; R14.0 Abdominal distension (gaseous)
CPT/HCPCS: 87507

== ENCOUNTER → 2020-11-09 08:09 | Outpatient (CLI) | payer OTHER, SELFPAY | PROVIDERS: Visit Provider Internal Medicine Gastroenterology | DX: Z01.812 Encounter for preprocedural laboratory examination (principal); Z11.52 Encounter for screening for COVID-19; Z13.810 Encounter for screening for upper gastrointestinal disorder; Z12.11 Encounter for screening for malignant neoplasm of colon | CPT/HCPCS: U0003 ==

== ENCOUNTER 2020-11-10 06:20 | Day surgery (SDC) | payer OTHER, SELFPAY ==
[2020-11-08 13:08] VITALS: BMI 21.2
[2020-11-10] VITALS (10 sets, daily range): BP systolic 112–152; BP diastolic 68–89; PULSE 53–65; RESP 16–18; TEMP 36.3–37.1; O2SAT 96–100
--- NOTE | 2020-11-10 10:04 | HMH.PROC ---
[facility] Procedure Note Procedure Note:: Upper Endoscopy Procedure Report: Esophagogastroduodenoscopy with cold biopsies Endoscopost: Christiano Wallis II, MD Referring Physician: CUCA Koch/Tomy Hawkins MD Date of Procedure: November 10, 2020 Equipment: Olympus GIF 190 standard upper endoscope Sedation: MAC sedation Indications: Mrs. Harley is a 60-year-old female with abnormal weight loss and epigastric pain. She went from 128 pounds down to 109 pounds. She does have a history of Ku/elevated liver chemistries without fibrosis. She has had 3 bouts of acute pancreatitis and her last was approximately 1 year ago. She has had some increase in alkaline phosphatase. She reports no use of alcohol but does smoke 1 pack of cigarettes daily. She reports nausea with dry heaves. She has had some heartburn, bloating and belching. She reports no dysphagia. She was having some constipation but now has diarrhea. She has had prior hysterectomy but still has her gallbladder. She did have a CT scan of the abdomen and pelvis on January 19, 2020 and there was a moderate amount of retained stool. The pancreas and liver were unremarkable. Her ultrasound of the abdomen on January 06, 2020 showed no gallbladder wall thickening or gallstones or pericholecystic fluid. There was no biliary ductal dilation. Procedure: Prior to the procedure, a history and physical exam was performed, and patient's medications and allergies were reviewed. The risks, benefits and alternatives of the sedation and procedure were discussed with the patient. All questions were answered and informed consent was obtained. The patient was brought to the procedure room. Patient identification and proposed procedure were verified by the physician and the nurse. The patient was placed in a left lateral decubitus position and the scope was passed under direct vision. Throughout the procedure, the patient's blood pressure, pulse, and oxygen saturations were monitored continuously. The upper GI endoscopy was accomplished without difficulty. The patient tolerated the procedure well. Findings: The scope was passed directly into the upper esophagus and advanced to the third portion of the duodenum. The post bulbar duodenum and duodenal bulb were normal with normal mucosa and conniventes. Cold biopsies were taken from the post bulbar duodenum and duodenal bulb to rule out celiac disease. The scope was withdrawn through a normal duodenal bulb and pylorus into the stomach. There was moderate to marked erosive linear gastropathy of the antrum. There was some gastropathy of the body that was milder. The remainder of the fundus of the stomach was grossly normal. Upon retroflexion there was no hiatal hernia. 2 biopsies were taken in the antrum and along the lesser curvature for histology to rule out gastritis and/or H pylori. The scope was then withdrawn into the esophagus. There was a serrated Z-line. There was no evidence of reflux esophagitis or Pepper's. There were tertiary contractions and evidence of moderate esophageal dysmotility. The remainder of the esophageal mucosa was normal. Impression: 1. Nonerosive GERD with moderate esophageal dysmotility 2. Moderate to marked linear erosive reactive gastropathy of antrum Plan: I will discuss the findings with the patient and family. I am still concerned about the sphincter of Oddi because of her elevated alkaline phosphatase and prior history of pancreatitis. Certainly this could be exacerbated by use of medication (especially mu receptor opiate). I will follow-up the biopsies and discuss possible repeat imaging of the abdomen because of her abnormal weight loss. Certainly relapsing pancreatitis and especially chronic pancreatitis are risk factors for pancreatic neoplasm. This is a much greater risk with tobacco use. I will proceed with colonoscopy.
--- NOTE | 2020-11-10 10:31 | P.PCN_ITS ---
[facility] Procedure Note Procedure Note:: Colonoscopy Procedure Report: Colonoscopy with cold snare polypectomy, Endo Clip placement and cold biopsies Endoscopist: Christiano Wallis II, MD Referring physician: CUCA Koch/Tomy Hawkins MD Date of Procedure: November 10, 2020 Equipment: Olympus 190 variable stiffness pediatric colonoscope Sedation: MAC sedation Indication: Mrs. Harley is a 60-year-old female who is here for diagnostic colonoscopy. She has had abnormal weight loss and dyspepsia. She also has had some change in bowel habits with diarrhea. She does have a history of recurrent pancreatitis with 3 prior bouts. She has lost nearly 19 pounds over the last few months. She did have a CAT scan and ultrasound in December 2019 which were unremarkable except for obstipation. She reports no rectal bleeding except for some internal hemorrhoidal bleeding at times. She has had a prior hysterectomy. She does state that her mother had colitis and her paternal grandmother had colon cancer. This is her first colonoscopy. Procedure: Prior to the procedure, a history and physical exam was performed, and patient's medications and allergies were reviewed. The risks, benefits and alternatives of the sedation and procedure were discussed with the patient. All questions were answered and informed consent was obtained. The patient was brought to the procedure room. Patient identification and proposed procedure were verified by the physician and the nurse. The patient was placed in a left lateral decubitus position and the scope was passed under direct vision. Throughout the procedure, the patient's blood pressure, pulse, and oxygen saturations were monitored continuously. The colonoscopy was accomplished without difficulty. The patient tolerated the procedure well. Findings: On digital rectal examination there was normal rectal tone. There were no external hemorrhoids. The colonoscope was introduced through the anal canal to the rectum and advanced to the cecum. The ileocecal valve and appendiceal orifice were identified. The scope was advanced a short distance into the ileum which appeared grossly normal. The scope was then withdrawn into the colon. There were 3 polyps (cecal x2 (5 and 6 mm) and descending x1 (11 to 12 mm)) which were all 3 removed via cold snare polypectomy. A single Endo Clip was placed over the largest polypectomy site to provide closure and hemostasis. Cold biopsies were obtained from the right colon to rule out microscopic colitis. There were no mucosal abnormalities identified. Upon retroflexion within the rectum there were grade 1-2 internal hemorrhoids.The preparation was excellent throughout with [place] Preparation Score of 9. The cecal time was 13 minutes. Impression: 1. Colonic polyps x3 2. Grade 1-2 internal hemorrhoids Plan: I will follow up the polyp histology. Based upon the size and nature (adenomatous) I would recommend repeat surveillance colonoscopy again in 3 years. I will follow-up the biopsies to rule out microscopic colitis. Based upon her weight loss and recurrent pancreatitis, I do feel that CT scan of the abdomen and pelvis (pancreatic protocol) is warranted. If this is normal, I would still consider ERCP/MRCP. I will discuss the findings and diagnostic/treatment options.
--- NOTE | 2020-11-10 10:49 | HMH.ANESCL ---
[facility] Anesthesia Checklist - Structural Data Admitted From: Home Planned Operative Procedure/s: egd,colonoscopy Consent for Planned Operative Procedure(s) Verified: Yes - Additional verifications Anesthesia Reactions: No Hx Blood Transfusions: No - Airway Assessment C-Spine Mobility Assessed: Yes TMJ Mobility Assessed: Yes Dentition: Good Dentition - Neurological Assessment Level of Consciousness: Awake, Alert, Appropriate - Anesthesia Plan Anesthesia Risk discussed: Yes Anesthesia Plan: Verified ASA Class: III Anesthesia Type: MAC [facility] History I have reviewed the patient's past medical history: Yes Medical History: Reports:: Anxiety, Depression, Hyperlipidemia, Hypertension, Kidney Stones, Palpitations, Seizures Denies:: Cancer, Diabetes Mellitus Type 1, Diabetes Mellitus Type 2, Internal Pacemaker, MRSA *Have you ever received a pneumonia vaccine?: No *Have you received a flu vaccine this season?: Yes Other Medical History: Reports: Anemia, Arthritis Anesthesia experience/problems:: none Laterality Cases: Right: Carpal Tunnel Release, Bilateral: Tonsillectomy Other Surgeries: Yes: Hysterectomy-Total, Other (TONSILECTOMY AND CARPUL TUNNEL). No: Pacemaker Amputation: No Fractures: No - *Social History Last grade of school completed: High school graduate Smoking Status: Current every day smoker Tobacco Type: cigarettes # Packs/Day (cigarettes): 1 #Yrs smoked (if former smoker): 12 Alcohol Intake: never Alcohol Intake Frequency:: other Substance Use Type: former substance user *Occupational Status:: unemployed Housing: house Household Members: spouse *Travel in the last 8 weeks: None - Psychiatric History Pschychiatric History:: Reports:: Anxiety, Depression Family Hx:: Cancer, Coronary Artery Disease, Diabetes, Heart Attack, Hyperlipidemia, Hypertension
[2020-11-10 12:02] LABS: Basophils # 0.1 K/mm3 (0-0.2); Basophils % 0.7 % (0.1-2.0); Eosinophils # 0.1 K/mm3 (0.0-0.4); Hematocrit 38.9 % (37.0-47.0); Hemoglobin 13.6 g/dL (12.2-16.2); Lymphocytes # 1.5 K/mm3 (0.7-4.5); Lymphocytes % 23.2 % (10-50); Mean Corpuscular HGB Conc 34.9 g/dL (31.8-35.4); Mean Corpuscular Hemoglobin 29.2 pg (27.0-31.2); Mean Corpuscular Volume 83.7 fl (81-99); Mean Platelet Volume 8.9 fl (7.4-10.4); Monocytes # 0.2 K/mm3 (0.1-1.0); Monocytes % 3.8 % (1.7-9.3); Neutrophils # 4.6 K/mm3 (1.8-7.8); Neutrophils % 71.3 % (37.0-80.0); Platelet Count 220 K/mm3 (142-424); Red Blood Count 4.65 M/mm3 (4.20-5.40); Red Cell Distribution Width 12.6 % (11.5-17.5); White Blood Count 6.4 K/mm3 (4.8-10.8)
[2020-11-10 12:08] LABS: Chloride 104 mmol/L (98-107); Potassium 3.1 mmoL/L (3.5-5.1); Sodium 139 mmol/L (136-145)
[2020-11-10 12:11] LABS: Alanine Aminotransferase 29 U/L (12-78); Albumin Level 3.7 g/dl (3.5-5.0); Albumin/Globulin Ratio 1.5 (1.1-1.8); Alkaline Phosphatase 216 U/L (38-126); Amylase 32 U/L (30-110); Anion Gap 8.1 mEq/L (5-15); Aspartate Amino Transferase 36 U/L (14-36); Bilirubin,Total 0.4 mg/dl (0.2-1.3); Blood Urea Nitrogen 4 mg/dl (7-17); Calcium 10.4 mg/dl (8.4-10.2); Carbon Dioxide 30 mmol/L (22.0-30.0); Creatinine Clearance Estimated 94 mL/min (50-200); Estimated Glomerular Filt Rate 103 ml/min (>60); GFR (African American) 124 ML/MIN (>60); Globulin 2.4 g/dL (1.3-3.2); Glucose 101 mg/dl (74-100); Lipase 62 U/L (23-300); Total Protein,Serum 6.1 g/dl (6.3-8.2)
== END 2020-11-10 13:35 | disposition home or self-care (01) ==
LOC: OUTP 06:22
PROVIDERS: PCP Nurse Practitioner Family; Visit Provider Internal Medicine Gastroenterology
PROC: 0DJ08ZZ Inspection of Upper Intestinal Tract, Via Natural or Artificial Opening Endoscopic (ICD-10-PCS; CPT 43235; principal; 2020-11-10 09:30)
DX: R63.4 Abnormal weight loss (principal); Z68.21 Body mass index [BMI] 21.0-21.9, adult; Z87.19 Personal history of other diseases of the digestive system; K21.9 Gastro-esophageal reflux disease without esophagitis; K22.4 Dyskinesia of esophagus; K25.9 Gastric ulcer, unspecified as acute or chronic, without hemorrhage or perforation; K63.5 Polyp of colon; K64.0 First degree hemorrhoids; E78.5 Hyperlipidemia, unspecified; F41.9 Anxiety disorder, unspecified; F32.9 Major depressive disorder, single episode, unspecified; R00.2 Palpitations
CPT/HCPCS: 43239; 45385; 45380; 80053; 82150; 83690; 85025

== ENCOUNTER 2020-11-11 10:54 | Inpatient (IN) | payer OTHER, SELFPAY ==
[2020-11-11] VITALS (13 sets, daily range): BP systolic 124–203; BP diastolic 76–113; PULSE 57–69; RESP 14–18; TEMP 36.8–37.4; O2SAT 95–99; BMI 18.1; BMI 19.3
--- NOTE | 2020-11-11 11:08 | CT_ITS ---
PROCEDURE INFORMATION: Exam: CT Abdomen And Pelvis With Contrast Exam date and time: 11/11/2020 11:08 AM Age: 60 years old Clinical indication: Abdominal pain; Prior surgery; Surgery type: Partial hysterectomy. PT had endoscopy yesterday; Additional info: Pain after endoscopy TECHNIQUE: Imaging protocol: Computed tomography of the abdomen and pelvis with contrast. Radiation optimization: All CT scans at this facility use at least one of these dose optimization techniques: automated exposure control; mA and/or kV adjustment per patient size (includes targeted exams where dose is matched to clinical indication); or iterative reconstruction. Contrast material: ISOVUE; Contrast volume: 75 ml; Contrast route: IV; COMPARISON: CT ABDOMEN PELVIS W CON 01/19/2020 11:20 AM FINDINGS: Liver: Fatty infiltration of the liver. Gallbladder and bile ducts: Normal. No calcified stones. No ductal dilation. Pancreas: Mild edema within the pancreatic body, with adjacent inflammatory changes. No drainable collection. No pancreatic ductal dilatation. Compatible with acute pancreatitis, clinical correlation recommended. Spleen: Normal. No splenomegaly. Adrenal glands: Normal. No mass. Kidneys and ureters: Cortical renal cysts bilaterally, all simple in appearance. Largest in the midpole right kidney measures 1.4 x 1.4 cm. Stomach and bowel: Linear metallic radiopaque foreign body measures 2 cm in the colon, just distal to the splenic flexure. Not evident on previous examination, clinical correlation necessary. Appendix: No evidence of appendicitis. Intraperitoneal space: No pneumoperitoneum. Vasculature: Unremarkable. No abdominal aortic aneurysm. Lymph nodes: Unremarkable. No enlarged lymph nodes. Urinary bladder: Unremarkable as visualized. Reproductive: Unremarkable as visualized. Bones/joints: Unremarkable. No acute fracture. Soft tissues: Unremarkable. IMPRESSION: 1. No pneumoperitoneum. 2. Linear metallic radiopaque foreign body measures 2 cm in the colon, just distal to the splenic flexure. Not evident on previous examination, clinical correlation necessary. 3. Mild edema within the pancreatic body, with adjacent inflammatory changes. No drainable collection. No pancreatic ductal dilatation. Compatible with acute pancreatitis, clinical correlation with lab values recommended. COMMENTS: Consistent with the [employer]'s Incidental Findings Committee white paper (J Am Domenico Radiol 2018): Any incidental renal lesion less than 1 cm or classified as too small to characterize, or any incidental cystic renal lesion characterized as simple-appearing, is likely benign. No follow-up imaging is recommended for these lesions per consensus recommendations based on imaging criteria.
--- NOTE | 2020-11-11 11:09 | HMH.EDGENADL ---
ED Disposition Clinical Impression: Pancreatitis Qualifiers: Chronicity: acute Pancreatitis type: idiopathic Acute pancreatitis complication: no infection or necrosis Qualified Code(s): K85.00 - Idiopathic acute pancreatitis without necrosis or infection Disposition: Admitted as Observation Condition on Discharge: Good - Critical Care Critical Care Time: No Attestation: On 11/11/20, the high probability of a clinically significant, sudden or life threatening deterioration of the following system(s) required my full and direct attention, intervention and personal management. The time I documented below is in addition to time spent performing reported procedures but includes the following listed in this critical care notation. Medical Decision Making - Medical Records Medical records reviewed: Yes: I reviewed the patient's medical records. - Rojas Inquiry Pt receiving controlled substance: No Vital Signs: 11/11/20 10:54 11/11/20 12:15 11/11/20 12:30 Temperature 99.4 F Temperature Source Oral Pulse Rate 60 60 Pulse Rate [Left Radial] 57 L Respiratory Rate 18 Blood Pressure 197/109 H 203/113 H Blood Pressure [Right Arm] 154/95 H Blood Pressure Mean Blood Pressure Mean [Right Arm] 114 02 Sat by Pulse Oximetry 97 95 95 Oxygen Delivery Method Room Air 11/11/20 13:00 11/11/20 13:30 11/11/20 14:00 Temperature Temperature Source Pulse Rate 69 64 Pulse Rate [Left Radial] Respiratory Rate Blood Pressure 162/104 H 159/100 H 165/102 H Blood Pressure [Right Arm] Blood Pressure Mean 116 Blood Pressure Mean [Right Arm] 02 Sat by Pulse Oximetry 99 97 Oxygen Delivery Method 11/11/20 14:30 11/11/20 15:15 11/11/20 15:17 Temperature Temperature Source Pulse Rate 61 60 60 Pulse Rate [Left Radial] Respiratory Rate Blood Pressure 157/94 H 124/97 H 124/97 H Blood Pressure [Right Arm] Blood Pressure Mean 119 Blood Pressure Mean [Right Arm] 02 Sat by Pulse Oximetry 98 97 Oxygen Delivery Method 11/11/20 15:30 11/11/20 15:46 Temperature 99.4 F Temperature Source Pulse Rate 62 62 Pulse Rate [Left Radial] Respiratory Rate 16 Blood Pressure 148/76 H 148/76 H Blood Pressure [Right Arm] Blood Pressure Mean Blood Pressure Mean [Right Arm] 02 Sat by Pulse Oximetry 96 Oxygen Delivery Method Room Air - Lab Data Lab Results 11/11/20 11:00: Triglycerides 180 H, Cholesterol 178, LDL Cholesterol Direct 97.46 L, VLDL Cholesterol 36, HDL Cholesterol 30 L, Cholesterol/HDL Ratio 5.9 H 11/11/20 11:04: WBC 8.6 D, RBC 5.51 H, Hgb 16.2 D, Hct 47.3 H, MCV 85.9, MCH 29.4, MCHC 34.2, RDW 12.5, Plt Count 279 D, MPV 8.0, Neut % (Auto) 77.8, Lymph % (Auto) 16.2, [place] % (Auto) 4.4, Eos % (Auto) 0.8, Baso % (Auto) 0.7, Neut # (Auto) 6.7, Lymph # (Auto) 1.4, [place] # (Auto) 0.4, Eos # (Auto) 0.1, Baso # (Auto) 0.1 11/11/20 11:04: Sodium 142, Potassium 3.3 L, Chloride 105, Carbon Dioxide 31 H, Anion Gap 9.3, BUN 4 L, Creatinine 0.70, Estimated Creat Clear 68, Estimated GFR 86, Est GFR ( Amer) 104, Glucose 132 H D, Calcium 11.2 H, Total Bilirubin 0.7, AST 41 H, ALT 38 D, Alkaline Phosphatase 246 H, Total Protein 7.9 D, Albumin 4.8 D, Globulin 3.1, Albumin/Globulin Ratio 1.5, Amylase 166 H D, Lipase 1450 H 11/11/20 13:35: Chlamy pneumoniae PCR Not detected, Adenovirus (PCR) Not detected, B. pertussis DNA (PCR) Not detected, Coronavirus OC43 (PCR) Not detected, Coronavirus HKU1 (PCR) Not detected, Coronavirus 229E (PCR) Not detected, SARS-CoV-2 (PCR) Not detected, Coronavirus NL63 (PCR) Not detected, Human Metapneumovir PCR Not detected, Influenza A (H1) PCR Not detected, Influ A (H1N1/09) PCR Not detected, Influenza A (H3) PCR Not detected, Influenza Type A (PCR) Not detected, Influenza Type B (PCR) Not detected, M. pneumoniae (PCR) Not detected, Parainfluenza 1 (PCR) Not detected, Parainfluenza 2 (PCR) Not detected, Parainfluenza 3 (PCR) Not detected, Parainfl
[2020-11-11 11:14] LABS: Basophils # 0.1 K/mm3 (0-0.2); Eosinophils # 0.1 K/mm3 (0.0-0.4); Monocytes # 0.4 K/mm3 (0.1-1.0); Red Blood Count 5.51 M/mm3 (4.20-5.40)
[2020-11-11 11:19] LABS: Basophils % 0.7 % (0.1-2.0); Eosinophils % 0.8 % (0.1-12.0); Hematocrit 47.3 % (37.0-47.0); Lymphocytes # 1.4 K/mm3 (0.7-4.5); Lymphocytes % 16.2 % (10-50); Mean Corpuscular HGB Conc 34.2 g/dL (31.8-35.4); Mean Corpuscular Hemoglobin 29.4 pg (27.0-31.2); Mean Corpuscular Volume 85.9 fl (81-99); Monocytes % 4.4 % (1.7-9.3); Neutrophils # 6.7 K/mm3 (1.8-7.8); Neutrophils % 77.8 % (37.0-80.0); Platelet Count 279 K/mm3 (142-424); Red Cell Distribution Width 12.5 % (11.5-17.5); White Blood Count 8.6 K/mm3 (4.8-10.8)
--- NOTE | 2020-11-11 11:20 | PC.NURSE ---
in room with patient
[2020-11-11 11:22] LABS: Alanine Aminotransferase 38 U/L (12-78); Albumin Level 4.8 g/dl (3.5-5.0); Albumin/Globulin Ratio 1.5 (1.1-1.8); Alkaline Phosphatase 246 U/L (38-126); Amylase 166 U/L (30-110); Anion Gap 9.3 mEq/L (5-15); Aspartate Amino Transferase 41 U/L (14-36); Bilirubin,Total 0.7 mg/dl (0.2-1.3); Blood Urea Nitrogen 4 mg/dl (7-17); Calcium 11.2 mg/dl (8.4-10.2); Carbon Dioxide 31 mmol/L (22.0-30.0); Chloride 105 mmol/L (98-107); Creatinine Clearance Estimated 68 mL/min (50-200); Estimated Glomerular Filt Rate 86 ml/min (>60); GFR (African American) 104 ML/MIN (>60); Globulin 3.1 g/dL (1.3-3.2); Glucose 132 mg/dl (74-100); Potassium 3.3 mmoL/L (3.5-5.1); Sodium 142 mmol/L (136-145); Total Protein,Serum 7.9 g/dl (6.3-8.2)
[2020-11-11 11:32] LABS: Hemoglobin 16.2 g/dL (12.2-16.2)
[2020-11-11 11:35] LABS: Lipase 1450 U/L (23-300)
--- NOTE | 2020-11-11 11:43 | PC.NURSE ---
Pt with rad. v/s delayed.
--- NOTE | 2020-11-11 13:00 | PC.NURSE ---
contract modeler for nito poole
--- NOTE | 2020-11-11 13:25 | PC.NURSE ---
patient reported her med list was updated yesterday prior to her outpatient procedure. pt does not have medication list with her today.
--- NOTE | 2020-11-11 13:38 | PC.NURSE ---
mounter saxophones for dr beauchamp being paged again as there wasn't a return call.
[2020-11-11 13:48] LABS: Adenovirus,PCR Not Detected (NotDetected); Bordetella Pertussis Not Detected (NotDetected); Chlamydophila Pneumoniae, PCR Not Detected (NotDetected); Coronavirus 19, PCR Not Detected (NotDetected); Coronavirus 229E Not Detected (NotDetected); Coronavirus NL63 Not Detected (NotDetected); Coronavirus OC43 Not Detected (NotDetected); Coronovirus HKU1,PCR Not Detected (NotDetected); Human Metapneumovirus Not Detected (NotDetected); Influenza A, PCR Not Detected (NotDetected); Influenza AH1, 2009 Not Detected (NotDetected); Influenza AH1, PCR Not Detected (NotDetected); Influenza AH3,PCR Not Detected (NotDetected); Influenza B, PCR Not Detected (NotDetected); Mycoplasma Pneumoniae, PCR Not Detected (NotDetected); Parainfluenza 1, PCR Not Detected (NotDetected); Parainfluenza 2, PCR Not Detected (NotDetected); Parainfluenza 3, PCR Not Detected (NotDetected); Parainfluenza 4, PCR Not Detected (NotDetected); Respiratory Syncytial Virus Not Detected (NotDetected); Rhinovirus/Enterovirus Not Detected (NotDetected)
[2020-11-11 14:41] LABS: Chol/HDL Ratio 5.9 (1-3.5); Cholesterol 178 mg/dl (140-200); HDL Cholesterol 30 mg/dl (40-60); Triglycerides 180 mg/dl (30-150); VLDL Cholesterol 36 mg/dL (0-40)
[2020-11-11 14:52] LABS: Direct LDL Cholesterol 97.46 mg/dL (100-129)
--- NOTE | 2020-11-11 15:14 | PC.NURSE ---
Waiting in covid test, states it is 30 minutes
--- NOTE | 2020-11-11 15:53 | PC.NURSE ---
Pt arrived to the floor at this time.
--- NOTE | 2020-11-11 18:02 | PC.NURSE ---
PATIENT IS A&O X4, LUNGS ARE CLEAR, PULSES ARE EQUAL. THIS RN PROVIDED KPAD, PATIENT VERBALIZED AN UNDERSTANDING OF PREVENTING BURN AGAINST THE SKIN. NO NEW CONCERNS OR NEEDS AT ADMISSION.
--- NOTE | 2020-11-12 02:58 | PC.NURSE ---
A&OX4. PT UP INDEPENDENTLY IN ROOM. PT HAS HAD CONTINUOUS PAIN T/O SHIFT. PAIN RADIATES FROM UPPER ABD TO BACK. TREATED WITH PRN PAIN MEDICATIONS T/O NIGHT. PT C/O NAUSEA TOWARDS BEGINNING OF SHIFT. PHENERGAN ORDERED PER BONE DRIER OPERATOR MD NUÑEZ. ADMINISTERED AND PT STATES THIS HAS HELPED HER NA. PT HAS RESTED WELL WHEN NOT AWAKE WITH PAIN. PT GOT SICK AT ONE POINT, BILE COLORED EMESIS, APPX 200 ML. PT TOLERATING NPO DIET WELL. NO OTHER C/O THUS FAR, VSS WILL CONTINUE TO MONITOR.
[2020-11-12 03:34] VITALS: BP 132/69; PULSE 54; RESP 14; TEMP 36.9; O2SAT 94
[2020-11-12 04:55] VITALS: BMI 19.5
--- NOTE | 2020-11-12 05:44 | PC.NURSE ---
Pt arrived to the unit with belongings
--- NOTE | 2020-11-12 05:46 | PC.NURSE ---
PT REQUESTED PHENERGAN AND MORPHINE ONCE MORE. ADMINISTERED MEDS. TRANSFERED PT TO OB AT THIS TIME.
--- NOTE | 2020-11-12 07:12 | PC.NURSE ---
Report given to Juvencio Rabago RN
--- NOTE | 2020-11-12 07:35 | PC.NURSE ---
DR. BEY AT BEDSIDE
[2020-11-12 08:00] VITALS: BP 166/82; PULSE 57; RESP 20; TEMP 37.1; O2SAT 97
--- NOTE | 2020-11-12 08:00 | HMH.HP ---
*Admission Date: 11/11/20 *Chief complaint: Abdominal pain *History of present illness: 60-year-old female with history of pancreatitis, hypertension presented to the emergency department with abdominal pain in epigastric area radiating through to the back. Patient reports a constant sharp sticking sensation in her back. She had nausea but no vomiting. Pain was severe and reminiscent of prior episodes of pancreatitis. In the emergency department she underwent evaluation with confirmation of acute pancreatitis via labs and CT. Patient had undergone EGD and colonoscopy the day prior by Dr. Wallis. He has recommended in the future she have a CT of the abdomen and pelvis with pancreatic protocol and possible ERCP/MRCP. This morning patient admits her pain is starting to get under control. She remains n.p.o. [facility] History I have reviewed the patient's past medical history: Yes Medical History: Reports:: Anxiety, Depression, Hyperlipidemia, Hypertension, Kidney Stones, Palpitations, Seizures Denies:: Cancer, Diabetes Mellitus Type 1, Diabetes Mellitus Type 2, Internal Pacemaker, MRSA *Have you ever received a pneumonia vaccine?: No *Have you received a flu vaccine this season?: Yes Other Medical History: Reports: Anemia, Arthritis, Liver Disease ([place]), Other (Substance dependence) Laterality Cases: Right: Carpal Tunnel Release, Bilateral: Tonsillectomy Other Surgeries: Yes: Hysterectomy-Total, Other (TONSILECTOMY AND CARPUL TUNNEL). No: Pacemaker Amputation: No Fractures: No - *Social History Smoking Status: Current every day smoker Tobacco Type: cigarettes # Packs/Day (cigarettes): 1 #Yrs smoked (if former smoker): 12 Alcohol Intake: never Substance Use Type: prescription drug *Occupational Status:: other Housing: house Household Members: spouse *Travel in the last 8 weeks: None - Psychiatric History Pschychiatric History:: Reports:: Anxiety, Depression Family Hx:: Heart Attack, Hypertension, Mental illness Review of Systems - Constitutional Reports anorexia, Reports lack of energy, Denies chills - Eyes Denies blurry vision - ENT Denies abnormal hearing, Denies difficulty swallowing - *Cardiovascular Denies chest pain, Denies chest pain at rest, Denies chest pain with activity - *Respiratory Denies change in phlegm color, Denies chest congestion, Denies cough - *Gastrointestinal Reports abdominal pain, Reports change in bowel habits, Reports loose stools, Reports loose stools, Reports nausea, Denies change in stools, Denies coffee ground vomit, Denies constipation, Denies vomiting blood, Denies black, tarry stools - *Genitourinary Denies painful urination - *Musculoskeletal Denies abnormal walking - Integumentary/Breasts Denies hair loss - *Neurologic Denies abnormal walking, Denies abnormal hearing, Denies confusion - Psychiatric Reports abnormal sleep pattern Meds Home Medications Medication Instructions Recorded Confirmed Type atorvastatin 40 mg tablet 40 mg PO HS tab 11/04/17 11/11/20 History bisoproloL fumarate [Bisoprolol 10 mg PO HS 04/27/18 11/11/20 History 10mg Tablet] lisinopriL [Lisinopril 20mg Tab] 20 mg PO DAILY 07/24/18 11/11/20 History Amlodipine Besylate [Norvasc 5mg 5 mg PO HS 08/17/18 11/11/20 History tablet] Furosemide [Furosemide 20mg Tab*] 20 mg PO DAILY PRN 08/17/18 11/11/20 History Potassium Chloride [Klor-Con 10mEq 10 meq PO DAILY PRN 08/17/18 11/11/20 History tab] Bifidobacterium Infantis [Align] 4 mg PO DAILY 11/08/20 11/11/20 History Trazodone HCl 150 mg PO DAILY 11/08/20 11/11/20 History Venlafaxine HCl [Effexor XR 150mg] 150 mg PO DAILY 11/08/20 11/11/20 History Vitamin E 100 unit PO DAILY 11/08/20 11/11/20 History Melatonin 10 mg PO HS 11/11/20 11/11/20 History Allergies Allergy/AdvReac Type Severity Reaction Status Date / Time No Known Allergies Allergy Verified 11/10/20 09:12 Exam Vital signs and Labs for Last 24 Hours: Temp Puls
--- NOTE | 2020-11-12 14:49 | HMH.PHAVTE ---
[facility] Pharmacy VTE Monitoring - Patient Demographics Admission date: 11/11/20 Report Date: 11/12/20 Time: 14:50 Allergies/Adverse Reactions: Patient Allergies No Known Allergies Allergy (Verified 11/10/20 09:12) Height: 1.65 m Weight: 53.155 kg Patient Problems: Current Active Problems Pancreatitis, acute (Acute) Pancreatitis (Acute) Hyperlipidemia (Chronic) Tobacco dependence syndrome (Chronic) Hypertensive heart disease (Chronic) - VTE Risk Labs: VTE Related Lab Results Hgb 16.2 g/dL (12.2-16.2) D 11/11/20 11:04 Hct 47.3 % (37.0-47.0) H 11/11/20 11:04 Plt Count 279 K/mm3 (142-424) D 11/11/20 11:04 BUN 4 mg/dl (7-17) L 11/11/20 11:04 Creatinine 0.70 mg/dl (0.52-1.04) 11/11/20 11:04 Estimated Creat Clear 68 mL/min (50-200) 11/11/20 11:04 VTE Score: 3 VTE Risk Level: Low Risk - Prophylaxis VTE Prophylaxis Ordered?: Yes Types of VTE Prophylaxis: TEDS Knee High Location of Applied Device: Bilateral Lower Extremeties
[2020-11-12 16:00] VITALS: BP 130/90; PULSE 62; RESP 21; TEMP 36.9; O2SAT 98
--- NOTE | 2020-11-12 16:20 | PC.NURSE ---
PT A&O X 4, VITAL SIGNS STABLE, PT AFEBRILE. PT'S PAIN AND NAUSEA WELL CONTROLLED WITH PRN MEDICATIONS PER EMAR. PT INDEPENDENT. PT HAS RESTED INTERMITTENTLY, PARTIAL BATH EARLIER TODAY. NO ACUTE CHANGES FROM AM ASSESSMENT. REPORTS ABDOMINAL TENDERNESS, NO PAIN AT THIS TIME. PT REMAINS NPO. IV PATENT TO RIGHT AC. VOIDING WITHOUT DIFFICULTY, REPORTS NO BOWEL CHANGES. NO EMESIS THIS SHIFT. WILL CONTINUE TO MONITOR. CALL LIGHT WITHIN REACH
[2020-11-12 20:00] VITALS: BP 134/80; PULSE 70; RESP 20; TEMP 36.6; O2SAT 98
[2020-11-13] VITALS (18 sets, daily range): BP systolic 120–160; BP diastolic 60–99; PULSE 55–86; RESP 16–18; TEMP 36.7–37.7; O2SAT 93–100
--- NOTE | 2020-11-13 04:24 | PC.NURSE ---
Pt has slept in intervals this shift, BLT lungs CTA, Bowel sounds present in all 4 quadrants. IV patent and infusing well, Pt abdomen soft flat and tender. Pt medicated per MAR for pain and nausea this shift. Pt has had 2 episodes of diarrhea this shift. Pt ambulated to the BR with no assistance
--- NOTE | 2020-11-13 06:59 | PC.NURSE ---
Report given to Juvencio Rabago RN
--- NOTE | 2020-11-13 07:19 | HMH.ACPN2 ---
Internal Medicine - PN: Subj *Date: 11/13/20 *Time: 07:19 Interval history: Patient reports improvement in pain. She developed diarrhea overnight. Exam Vital signs and Labs for Last 24 Hours: Temp Pulse Resp BP Pulse Ox 98.1 F 74 18 122/73 93 L 11/13/20 04:00 11/13/20 04:00 11/13/20 04:00 11/13/20 04:00 11/13/20 04:00 I & O for Last 24 hours: Intake & Output 11/10/20 11/11/20 11/12/20 11/13/20 11:59 11:59 11:59 11:59 Intake Total 1000 / 1000 1305 / 1305 Balance 1000 / 1000 1305 / 1305 Weight 109 lb 117 lb 3 oz Narrative: Patient looks comfortable. Abdomen is soft with minimal epigastric tenderness and no right lower quadrant tenderness this morning. Bowel sounds are present. Lungs are clear. Heart has a regular rate and rhythm. Assessment and Plan (1) Pancreatitis, acute Status: Acute Qualifiers: Pancreatitis type: unspecified pancreatitis type Category: Medical Code(s): K85.90 - Acute pancreatitis without necrosis or infection, unspecified (2) Hyperlipidemia Status: Chronic Qualifiers: Hyperlipidemia type: mixed hyperlipidemia Qualified Code(s): E78.2 - Mixed hyperlipidemia Category: Medical Code(s): E78.5 - Hyperlipidemia, unspecified (3) Hypertensive heart disease Status: Chronic Qualifiers: Heart failure presence: without heart failure Qualified Code(s): I11.9 - Hypertensive heart disease without heart failure Category: Medical Code(s): I11.9 - Hypertensive heart disease without heart failure (4) Tobacco dependence syndrome Status: Chronic Category: Medical Code(s): F17.200 - Nicotine dependence, unspecified, uncomplicated - Assessment and plan all Dx Assessment and Plan for all problems:: 1. GI consult today for possible ERCP 2. CA 19-9 level has been ordered
--- NOTE | 2020-11-13 07:52 | PC.NURSE ---
SURGERY STAFF NOTIFIED, SANTIAGO, OF DR. NIEVES CONSULT. WILL INFORM DR. NIEVES.
--- NOTE | 2020-11-13 08:10 | FL_ITS ---
PROCEDURE: FL ERCP CLINICAL INDICATION: Pancreatitis COMPARISON: No exams were available for comparison FINDINGS: Fluoroscopy time: 43 seconds Select images submitted from the ERCP showing normal caliber common bile duct with no obvious internal filling defects. The distal aspect of the common bile duct has a somewhat blunted appearance possibly due to nondistention and angle of image. Please correlate with fluoroscopic findings. Sphincterotomy and sphincteroplasty was performed according to the notes with good drainage of bile on the post procedure image. IMPRESSION: Status post ERCP with fluoroscopic guidance. Please see above for detail Dictated by: Maksim Lea MD 11/17/2020 10:25 Maksim Lea MD in [place] 11/17/2020 10:25
--- NOTE | 2020-11-13 09:20 | PC.NURSE ---
CONSENT SIGNED FOR ERCP
--- NOTE | 2020-11-13 15:30 | PC.NURSE ---
PT TO PRE-OP AT THIS TIME PER WHEELCHAIR. REPORT GIVEN TO Juan GOODMAN RN
--- NOTE | 2020-11-13 16:00 | PC.NURSE ---
1600 LINENS CHANGED WHILE PT TO SURGERY
--- NOTE | 2020-11-13 16:43 | HMH.PROC ---
[facility] Procedure Note Procedure Note:: ERCP procedure Report: Endoscopic retrograde cholangiopancreatography with biliary sphincterotomy, TTS balloon dilation (sphincteroplasty) and cold snare polypectomy Endoscopist: Christiano Wallis II, MD Referring Physician: Tomy Hawkins MD/CUCA Koch Date of Procedure: November 13, 2020 Equipment: Olympus 180 side viewing endoscope duodenoscope Sedation: MAC sedation Indication: Mrs. Harley is a 60-year-old female who recently had EGD/colonoscopy 3 days ago (November 10, 2020). The patient has been having abnormal weight loss and epigastric abdominal pain. She does have a history of an elevated alkaline phosphatase level. She had a normal CAT scan of the abdomen and pelvis on January 19, 2020 with retention of stool. Her recent panendoscopy showed some reactive gastropathy and 3 colon polyps. The patient returned over the weekend with mid upper abdominal abdominal pain and nausea. The patient did have a CT scan of the abdomen and pelvis that did show mild edema within the pancreatic body with adjacent inflammatory changes. This was IV contrast but not oral contrast. The patient also had lab work that showed alkaline phosphatase 246, total bilirubin 0.7 and ALT 38. Her amylase 166 and lipase 1450 were also elevated. Procedure: Prior to the procedure, a history and physical exam was performed, and patient's medications and allergies were reviewed. The risks, benefits and alternatives of the sedation and procedure were discussed with the patient. All questions were answered and informed consent was obtained. The patient was brought to the fluoroscopic radiology room. Patient identification and proposed procedure were verified by the physician and the nurse. The patient was placed in a swimmer's position between left lateral decubitus and prone position and the scope was passed under direct vision. Throughout the procedure, the patient's blood pressure, pulse, and oxygen saturations were monitored continuously. The ERCP was accomplished without difficulty. The patient tolerated the procedure well. Findings: The side-viewing duodenoscope was passed directly into the upper esophagus and advanced to the second portion of the duodenum. The ampulla was well visualized. The common bile duct was selectively cannulated. There was normal filling of the biliary system with a normal intrahepatic biliary system and normal filling of the cystic duct. The common bile duct was approximately 7 to 8 mm. There was poor drainage of bile and contrast from the biliary system into the duodenum with fullness in the region fluoroscopically of the sphincter of Oddi with delayed drainage. This was felt to be consistent with sphincter of Oddi dysfunction. A generous biliary sphincterotomy was performed. There was still very little drainage of bile and contrast. At this point, I did perform sphincteroplasty (TTS balloon dilation) of the sphincter of Oddi and dilated to 6 mm with the TTS hydrostatic balloon. There was excellent drainage of contrast and bile at this point. To prevent pancreatitis exacerbation, I did not cannulate the pancreatic duct. There was a 5 mm flat polyp just distal to the sphincter of Oddi and this was removed via cold snare polypectomy. Impression: 1. 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 Diminutive duodenal polyp Plan: I will discuss the findings with the patient and family. I am going to obtain a CEA/CA 19?9. I do feel that the patient will have clinical improvement with correction of the sphincter of Oddi. I do feel that this is responsible for her recurrent pancreatitis and abdominal pain.
--- NOTE | 2020-11-13 16:58 | P.PN_ITS ---
[facility] Anesthesia Checklist - Patient Identification Patient Identification: Arm Band - Structural Data Admitted From: Home Planned Operative Procedure/s: ERCP Consent for Planned Operative Procedure(s) Verified: Yes Verified Documents: Surgical Consent, History and Physical - NPO Status Verified Time NPO: 00:00 - Additional verifications Anesthesia Reactions: No Hx Blood Transfusions: No - Airway Assessment C-Spine Mobility Assessed: Yes (mp2) TMJ Mobility Assessed: Yes Dentition: Good Dentition - Neurological Assessment Level of Consciousness: Awake, Alert - Anesthesia Plan Anesthesia Risk discussed: Yes Anesthesia Plan: Verified ASA Class: III Anesthesia Type: MAC [facility] History I have reviewed the patient's past medical history: Yes Medical History: Reports:: Anxiety, Depression, Hyperlipidemia, Hypertension, Kidney Stones, Palpitations, Seizures Denies:: Cancer, Diabetes Mellitus Type 1, Diabetes Mellitus Type 2, Internal Pacemaker, MRSA *Have you ever received a pneumonia vaccine?: No *Have you received a flu vaccine this season?: Yes Other Medical History: Reports: Anemia, Arthritis, Liver Disease (ALDANA), Other (Substance dependence) Anesthesia experience/problems:: nac Laterality Cases: Right: Carpal Tunnel Release, Bilateral: Tonsillectomy Other Surgeries: Yes: Hysterectomy-Total, Other (TONSILECTOMY AND CARPUL TUNNEL). No: Pacemaker Amputation: No Fractures: No - *Social History Smoking Status: Current every day smoker Tobacco Type: cigarettes # Packs/Day (cigarettes): 1 #Yrs smoked (if former smoker): 12 Alcohol Intake: never Alcohol Intake Frequency:: other Substance Use Type: prescription drug *Occupational Status:: other Housing: house Household Members: spouse *Travel in the last 8 weeks: None - Psychiatric History Pschychiatric History:: Reports:: Anxiety, Depression Family Hx:: Heart Attack, Hypertension, Mental illness
[2020-11-14 00:15] VITALS: BP 136/74; PULSE 57; RESP 17; O2SAT 96
[2020-11-14 03:52] VITALS: BP 135/79; PULSE 70; RESP 17; TEMP 37; O2SAT 97
--- NOTE | 2020-11-14 03:53 | PC.NURSE ---
Pt has slept in intervals this shift. A&O x4, BLT lungs CTA, bowel sounds present in all 4 quadrants, IV patent and infusing well. Pt medicated per MAR for pain and nausea. Abdomen soft with mild tenderness. Pt denies headache or SOA at this time
--- NOTE | 2020-11-14 06:54 | PC.NURSE ---
Dr. Hawkins at the bedside
--- NOTE | 2020-11-14 07:09 | PC.NURSE ---
Report given to Corey Parson RN
--- NOTE | 2020-11-14 07:22 | HMH.ACPN2 ---
Internal Medicine - PN: Subj *Date: 11/14/20 *Time: 07:22 Interval history: Patient underwent successful ERCP yesterday. She reports significant improvement in abdominal pain and only has soreness from retching that occurred prior to her procedure. Exam Vital signs and Labs for Last 24 Hours: Temp Pulse Resp BP Pulse Ox 98.6 F 70 17 135/79 97 11/14/20 03:52 11/14/20 03:52 11/14/20 03:52 11/14/20 03:52 11/14/20 03:52 I & O for Last 24 hours: Intake & Output 11/11/20 11/12/20 11/13/20 11/14/20 11:59 11:59 11:59 11:59 Intake Total 1000 / 1000 1305 / 1305 2573 / 2573 Balance 1000 / 1000 1305 / 1305 2573 / 2573 Weight 109 lb 117 lb 3 oz - Constitutional no acute distress - *Routine Respiratory Exam Present: CTA bilaterally - *Routine Cardiovascular Exam Present: RRR - *Routine Abdominal Exam Present: soft, normoactive bowel sounds. Absent: tenderness Assessment and Plan (1) Pancreatitis, acute Status: Acute Qualifiers: Pancreatitis type: unspecified pancreatitis type Category: Medical Code(s): K85.90 - Acute pancreatitis without necrosis or infection, unspecified (2) Hyperlipidemia Status: Chronic Qualifiers: Hyperlipidemia type: mixed hyperlipidemia Qualified Code(s): E78.2 - Mixed hyperlipidemia Category: Medical Code(s): E78.5 - Hyperlipidemia, unspecified (3) Hypertensive heart disease Status: Chronic Qualifiers: Heart failure presence: without heart failure Qualified Code(s): I11.9 - Hypertensive heart disease without heart failure Category: Medical Code(s): I11.9 - Hypertensive heart disease without heart failure (4) Tobacco dependence syndrome Status: Chronic Category: Medical Code(s): F17.200 - Nicotine dependence, unspecified, uncomplicated - Assessment and plan all Dx Assessment and Plan for all problems:: 1. Patient showing signs of improvement from pancreatitis. Advance diet to clear liquids this morning with plan for full liquids at lunch. If patient is able to tolerate full liquids during the day consideration will be given to discharge later today. 2. 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
[2020-11-14 07:50] VITALS: O2SAT 98
[2020-11-14 07:56] VITALS: BP 142/71; PULSE 68; RESP 18; TEMP 37.2; O2SAT 98
--- NOTE | 2020-11-14 10:13 | PC.NURSE ---
pt reports that she is in pain. requesting pain medication. medication given.
[2020-11-14 10:38] LABS: CA 19-9 19 U/mL (0-35)
[2020-11-14 12:00] VITALS: BP 142/83; PULSE 69; RESP 18; TEMP 36.6; O2SAT 98
[2020-11-14 16:00] VITALS: BP 123/79; PULSE 69; RESP 18; TEMP 37.1; O2SAT 98
--- NOTE | 2020-11-14 16:00 | PC.NURSE ---
Patient has done well today. She has tolerated her full liquid diet without nausea/vomiting or pain. pt reports feeling hungry for real food. lungs cta and bowel remains hypoactive. no bowel movement on my shift. pt up walking throughout the day by herself. no current needs. patient is going to be d/c
--- NOTE | 2020-11-15 07:18 | HMH.DCSUM ---
General - General Admission date:: 11/11/20 Discharge date: 11/14/20 HPI HPI: 60-year-old female with history of pancreatitis, hypertension presented to the emergency department with abdominal pain in epigastric area radiating through to the back. Patient reports a constant sharp sticking sensation in her back. She had nausea but no vomiting. Pain was severe and reminiscent of prior episodes of pancreatitis. In the emergency department she underwent evaluation with confirmation of acute pancreatitis via labs and CT. Patient had undergone EGD and colonoscopy the day prior by Dr. Wallis. He has recommended in the future she have a CT of the abdomen and pelvis with pancreatic protocol and possible ERCP/MRCP. This morning patient admits her pain is starting to get under control. She remains n.p.o. Hospital Course Hospital Course: Patient was admitted with diagnosis of acute pancreatitis. She was started on IV fluids and IV narcotic pain medication and made n.p.o. Patient was kept n.p.o. until GI consultation on November 13. Patient was taken to the endoscopy suite and underwent ERCP with sphincterotomy of the sphincter of Oddi by Dr. Wallis. 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 Post procedurally patient did well. By the morning of the patient was pain-free. Diet was advanced to liquids. Patient first tolerated clears then full liquids. Once patient was tolerating full liquid diet she was discharged home with instructions to advance to her usual diet. Patient will follow-up in the office in 1 week. Patient will follow up with Dr. Wallis per his instructions. Objective Vital signs: Temp Pulse Resp BP Pulse Ox 98.7 F 69 18 123/79 98 11/14/20 16:00 11/14/20 16:00 11/14/20 16:00 11/14/20 16:00 11/14/20 16:00 no acute distress - *Routine Respiratory Exam Present: CTA bilaterally - *Routine Cardiovascular Exam Present: RRR - *Routine Abdominal Exam Present: soft, normoactive bowel sounds. Absent: tenderness Results Labs on day of discharge: Labs from last 24 hours 11/13/20 07:13 CA 19-9 Antigen 19 DS: Diagnosis - Discharge Diagnosis (1) Pancreatitis, acute Status: Acute (2) Hyperlipidemia Status: Chronic (3) Hypertensive heart disease Status: Chronic (4) Tobacco dependence syndrome Status: Chronic Discharge Plan - Patient Discharge Instructions ACTIVITY: Continue current activity DIET: continue same diet, advance to your usual diet Additional Instructions: advance diet as tolerated. full liquids. Patient Instructions: Chronic Pancreatitis, DI for Endoscopic Retrograde Cholangiopancreatography, Preventing the Spread of Coronavirus Discharge Instructions - Follow up Plan Follow up with: Tomy Hawkins MD [Primary Care Provider] - Disposition: Home, Self-Care Condition at discharge:: Improving Home Medications: Home Medications Medication Instructions Recorded Confirmed Type atorvastatin 40 mg tablet 40 mg PO HS tab 11/04/17 11/11/20 History bisoproloL fumarate [Bisoprolol 10 mg PO HS 04/27/18 11/11/20 History 10mg Tablet] Amlodipine Besylate [Norvasc 5mg 5 mg PO HS 08/17/18 11/11/20 History tablet] Furosemide [Furosemide 20mg Tab*] 20 mg PO DAILY PRN 08/17/18 11/11/20 History Potassium Chloride [Klor-Con 10mEq 10 meq PO DAILY PRN 08/17/18 11/11/20 History tab] Bifidobacterium Infantis [Align] 4 mg PO DAILY 11/08/20 11/11/20 History Trazodone HCl 150 mg PO HS 11/08/20 11/12/20 History Venlafaxine HCl [Effexor XR 150mg] 150 mg PO DAILY 11/08/20 11/11/20 History Vitamin E 100 unit PO DAILY 11/08/20 11/11/20 History Melatonin 10 mg PO HS 11/11/20 11/11/20 History Celecoxib 200 mg PO DAILY 11/12/20 11/12/20 History Omeprazole [Omeprazole 40mg 40 mg PO DAILY 11/12/20 11/12/20 History Capsule] lisinopriL [Lisinopril] 20 mg PO DAILY 11/12/20 11/12/20 Hi
[2020-11-16 05:12] LABS: CEA 0.9 ng/mL (0.0-4.7)
== END 2020-11-14 16:33 | disposition home or self-care (01) | DRG 440 ==
LOC: ER 11:01 → OB 11-12 05:38 → 2ND 11-12 14:34
PROVIDERS: Internal Medicine Gastroenterology; Admitting Provider Internal Medicine Adolescent Medicine; Emergency Provider Emergency Medicine; PCP Family Medicine; Visit Provider Family Medicine
PROC: 0F7C8ZZ Dilation of Ampulla of Vater, Via Natural or Artificial Opening Endoscopic (ICD-10-PCS; principal; 2020-11-13 15:00)
DX: K85.00 Idiopathic acute pancreatitis without necrosis or infection (principal); Z20.822 Contact with and (suspected) exposure to COVID-19; F17.210 Nicotine dependence, cigarettes, uncomplicated; I10 Essential (primary) hypertension; E78.2 Mixed hyperlipidemia; K31.7 Polyp of stomach and duodenum; F32.9 Major depressive disorder, single episode, unspecified; F41.9 Anxiety disorder, unspecified; K83.8 Other specified diseases of biliary tract
CPT/HCPCS: 47460; 44364; 36415; 74177; 74330; 80053; 80061; 82150; 82378; 83690; 85025; 86316; 87581; 87633; 87798; 96365; 96375; 96376; 99284; C1726; Q9967

== ENCOUNTER → 2021-01-03 14:25 | Outpatient (CLI) | payer OTHER, SELFPAY ==
[2021-01-03 15:44] LABS: Basophils # 0.1 K/mm3 (0-0.2); Eosinophils # 0.1 K/mm3 (0.0-0.4); Eosinophils % 1.1 % (0.1-12.0); Hematocrit 39.3 % (37.0-47.0); Hemoglobin 13.6 g/dL (12.2-16.2); Lymphocytes # 1.5 K/mm3 (0.7-4.5); Lymphocytes % 20.4 % (10-50); Mean Corpuscular HGB Conc 34.6 g/dL (31.8-35.4); Mean Corpuscular Hemoglobin 29.3 pg (27.0-31.2); Mean Corpuscular Volume 84.7 fl (81-99); Mean Platelet Volume 7.6 fl (7.4-10.4); Monocytes # 0.4 K/mm3 (0.1-1.0); Monocytes % 5.7 % (1.7-9.3); Neutrophils # 5.2 K/mm3 (1.8-7.8); Neutrophils % 71.8 % (37.0-80.0); Platelet Count 331 K/mm3 (142-424); Red Blood Count 4.64 M/mm3 (4.20-5.40); Red Cell Distribution Width 14.9 % (11.5-17.5); White Blood Count 7.2 K/mm3 (4.8-10.8)
[2021-01-03 16:08] LABS: Alanine Aminotransferase 16 U/L (12-78); Albumin Level 3.8 g/dl (3.5-5.0); Albumin/Globulin Ratio 1.4 (1.1-1.8); Alkaline Phosphatase 185 U/L (38-126); Amylase 48 U/L (30-110); Anion Gap 9.9 mEq/L (5-15); Aspartate Amino Transferase 27 U/L (14-36); Bilirubin,Total 0.6 mg/dl (0.2-1.3); Blood Urea Nitrogen 3 mg/dl (7-17); Calcium 9.8 mg/dl (8.4-10.2); Carbon Dioxide 32 mmol/L (22.0-30.0); Chloride 99 mmol/L (98-107); Estimated Glomerular Filt Rate 103 ml/min (>60); GFR (African American) 124 ML/MIN (>60); Globulin 2.8 g/dL (1.3-3.2); Glucose 87 mg/dl (74-100); Lipase 315 U/L (23-300); Sodium 138 mmol/L (136-145); Total Protein,Serum 6.6 g/dl (6.3-8.2)
[2021-01-03 16:17] LABS: Potassium 2.9 mmoL/L (3.5-5.1)
== END ==
PROVIDERS: Visit Provider Nurse Practitioner Family
DX: K75.81 Nonalcoholic steatohepatitis (NASH) (principal); K85.90 Acute pancreatitis without necrosis or infection, unspecified
CPT/HCPCS: 36415; 80053; 82150; 83690; 85025

== ENCOUNTER → 2021-02-21 07:31 | Outpatient (CLI) | payer OTHER, SELFPAY ==
--- NOTE | 2021-02-21 07:35 | US_ITS ---
PROCEDURE: US ABDOMEN LIMITED CLINICAL INDICATION: NAUSEA,ABD PAIN COMPARISON: US US ABDOMEN LIMITED from 01/06/2020 FINDINGS: PANCREAS: Unremarkable. No obvious mass or abnormal fluid collection. No ductal dilatation LIVER: No focal liver lesions demonstrated. Homogeneous echogenicity. No intrahepatic biliary ductal dilatation evident. There is appropriate direction of blood flow within a non dilated portal vein RIGHT KIDNEY: There is a 17 mm right renal cyst. No hydronephrosis. GALLBLADDER: No gallstones, gallbladder wall thickening, pericholecystic fluid, or biliary dilatation. IMPRESSION: No acute finding. No evidence of cholelithiasis. Dictated by: Maksim Lea MD 02/21/2021 17:47 Maksim Lea MD in [place] 02/21/2021 17:47
== END ==
PROVIDERS: PCP Family Medicine; Visit Provider Nurse Practitioner Family
DX: R10.10 Upper abdominal pain, unspecified (principal); R11.0 Nausea
CPT/HCPCS: 76705

== ENCOUNTER → 2021-05-08 12:43 | Outpatient (CLI) | payer OTHER, SELFPAY ==
[2021-05-08 14:10] LABS: Alanine Aminotransferase 17 U/L (12-78); Albumin Level 4.4 g/dl (3.5-5.0); Albumin/Globulin Ratio 1.8 (1.1-1.8); Alkaline Phosphatase 212 U/L (38-126); Anion Gap 11.8 mEq/L (5-15); Aspartate Amino Transferase 24 U/L (14-36); Bilirubin,Total 0.3 mg/dl (0.2-1.3); Blood Urea Nitrogen 3 mg/dl (7-17); Calcium 10.9 mg/dl (8.4-10.2); Carbon Dioxide 31 mmol/L (22.0-30.0); Chloride 104 mmol/L (98-107); Estimated Glomerular Filt Rate 127 ml/min (>60); GFR (African American) 153 ML/MIN (>60); Globulin 2.5 g/dL (1.3-3.2); Glucose 97 mg/dl (74-100); Potassium 4.8 mmoL/L (3.5-5.1); Sodium 142 mmol/L (136-145); Total Protein,Serum 6.9 g/dl (6.3-8.2)
== END ==
PROVIDERS: Visit Provider Nurse Practitioner Family
DX: K75.81 Nonalcoholic steatohepatitis (NASH) (principal); E87.6 Hypokalemia
CPT/HCPCS: 36415; 80053

== ENCOUNTER → 2021-05-14 10:45 | Outpatient (CLI) | payer OTHER, SELFPAY ==
--- NOTE | 2021-05-14 10:46 | MM_ITS ---
PROCEDURE INFORMATION: Exam: MG Bilateral Screening 3D Mammography Exam date and time: 05/14/2021 10:46 AM Age: 60 years old Clinical indication: Screening exam; No personal or family HX of malignancy TECHNIQUE: Imaging protocol: Bilateral screening tomosynthesis and 2D mammography including computer-aided detection (CAD) when performed. COMPARISON: 1. MG DMSB DIG MAMM-SCREEN KASIE 12/01/2014 11:38 AM 2. MG DXUAVL MAMM DX-UNI.ADD.VIEWS-LT 04/01/2012 1:24 PM FINDINGS: MAMMOGRAPHY: Breast composition: The breast tissue is composed of scattered areas of fibroglandular density. Mass: None. Architectural distortion: None. Calcifications: No suspicious calcifications. Asymmetric density: None. Skin thickening: None. Axillary adenopathy: None. IMPRESSION: No mammographic evidence of malignancy. Annual screening is recommended unless otherwise clinically indicated. ASSESSMENT: BI-RADS Category 1: Negative
== END ==
PROVIDERS: PCP Family Medicine; Visit Provider Nurse Practitioner Family
DX: Z12.31 Encounter for screening mammogram for malignant neoplasm of breast (principal)
CPT/HCPCS: 77063; 77067

== ENCOUNTER 2021-10-18 19:15 | Emergency (ER) | payer OTHER, SELFPAY ==
[2021-10-18 19:17] VITALS: BP 157/100; PULSE 92; RESP 17; TEMP 36.8; O2SAT 99; BMI 20.7
--- NOTE | 2021-10-18 19:36 | HMH.EDGENADL ---
ED Disposition Condition on Discharge: Good - Critical Care Critical Care Time: No <Eb Bolaños - Last Filed: 10/18/21 19:36> Condition on Discharge: Good Time of Disposition: 21:35 - Critical Care Critical Care Time: No <Ihsan Hilliard - Last Filed: 10/18/21 21:41> Clinical Impression: Upper abdominal pain Disposition: Home, Self-Care Additional Instructions: Use medications as prescribed recommend daily omeprazole and follow-up with your GI physician as well as potentially surgery for a HIDA scan evaluation of the gallbladder. Turn to the ER for any new or worsening symptoms. Prescriptions: Sucralfate [Carafate] 1 gm PO TID 5 Days #15 gm Transmission Status: Pending to [facility] Omeprazole [Omeprazole 20mg Capsule] 20 mg PO DAILY 14 Days #14 cap Ondansetron [Zofran 4mg ODT] 4 mg PO TIDP PRN 3 Days #9 tab PRN Reason: Nausea Transmission Status: Pending to [facility] Referrals: Tasha Delong APRN [Primary Care Provider] - Fede Mary MD [Staff Physician] - Attestation: On 10/18/21, the high probability of a clinically significant, sudden or life threatening deterioration of the following system(s) required my full and direct attention, intervention and personal management. The time I documented below is in addition to time spent performing reported procedures but includes the following listed in this critical care notation. Medical Decision Making - Medical Records Medical records reviewed: Yes: I reviewed the patient's medical records. - [place] Inquiry Pt receiving controlled substance: No <Eb Bolaños - Last Filed: 10/18/21 19:36> - Lab Data Result diagrams: 10/18/21 19:35 10/18/21 19:35 <Ihsan Hilliard - Last Filed: 10/18/21 21:41> Vital Signs: 10/18/21 19:17 10/18/21 21:11 Temperature 98.2 F Temperature Source Oral Pulse Rate 72 Pulse Rate [Right] 92 H Respiratory Rate 17 Blood Pressure 172/92 H Blood Pressure [Right Arm] 157/100 H Blood Pressure Mean [Right Arm] 119 Blood Pressure Source [Right Arm] Automatic Cuff 02 Sat by Pulse Oximetry 99 98 Oxygen Delivery Method Room Air Room Air - Lab Data Lab Results 10/18/21 19:25: Urine Color Yellow, Urine Appearance Clear, Urine pH 6.0, Ur Specific [place] 1.010, Urine Protein Negative, Urine Glucose (UA) Negative, Urine Ketones Negative, Urine Blood Negative, Urine Nitrate Negative, Urine Bilirubin Negative, Urine Urobilinogen 0.2, Ur Leukocyte Esterase Negative, Urine WBC Occasional, Urine Bacteria Trace 10/18/21 19:35: WBC 8.7, RBC 5.30, Hgb 16.0, Hct 46.8, MCV 88.3, MCH 30.1, MCHC 34.1, RDW 13.7, Plt Count 301, MPV 8.5, Neut % (Auto) 74.1, Lymph % (Auto) 19.1, [place] % (Auto) 4.4, Eos % (Auto) 1.0, Baso % (Auto) 1.3, Neut # (Auto) 6.4, Lymph # (Auto) 1.7, [place] # (Auto) 0.4, Eos # (Auto) 0.1, Baso # (Auto) 0.1 10/18/21 19:35: Sodium 139, Potassium 3.3 L, Chloride 105, Carbon Dioxide 27, Anion Gap 10.3, BUN 6 L, Creatinine 0.60, Estimated Creat Clear 87, Estimated GFR 102, Est GFR ( Amer) 124, Glucose 101 H, Calcium 10.2, Total Bilirubin 0.7, AST 33, ALT 26, Alkaline Phosphatase 259 H, Troponin I < 0.01, Total Protein 7.4, Albumin 4.4, Globulin 3.0, Albumin/Globulin Ratio 1.5, Amylase 64, Lipase 191 Orders (Tests/Meds): ED MEDICATIONS Generic Name Dose Route Start Last Admin Trade Name Freq PRN Reason Stop Dose Admin Lactated Ringer's 1,000 mls @ 999 mls/hr 10/18/21 19:45 10/18/21 19:48 Lactated Ringer's 1000 Ml Bag IV 10/18/21 20:45 999 mls/hr .Q1H1M RACHAEL Administration Discontinued Medications Generic Name Dose Route Start Last Admin Trade Name Freq PRN Reason Stop Dose Admin Belladonna Alkaloids 60 ml 10/18/21 20:41 10/18/21 20:53 Gi Cocktail 60ml Udc PO 10/18/21 20:42 60 ml ONCE ONE Administration Iopamidol 75 ml 10/18/21 20:38 10/18/21 20:39 Iopamidol-370 (76%);100ml Bottle IV 10/18/21 20:39 75 ml ONCE ONE Adm
[2021-10-18 19:41] VITALS: BMI 20.5
--- NOTE | 2021-10-18 19:46 | ECG_ITS ---
APPROVED REPORT Exam: Resting ECG HR:75 bpm ECG Measurements Heart Rate 75 AXES VT 157 P 66 QRSd 102 QRS -33 QT 399 T 61 QTc 427 Conclusion SINUS RHYTHM LEFT AXIS DEVIATION [QRS AXIS < -30] MODERATE ST DEPRESSION [0.05+ mV ST DEPRESSION] ABNORMAL ECG UNCONFIRMED REPORT Electronically signed by : Tomy Hanson MD 10/20/2021 12:19:29
[2021-10-18 19:50] LABS: Microscopic, Urine URINE MICROSCOPIC (MICROSCOPIC)
[2021-10-18 19:54] LABS: Appearance,Urine CLEAR (Clear); Bilirubin,Urine Negative (Negative); Blood, Urine Negative (Negative); Color,Urine YELLOW (Yellow); Glucose,Urine (UA) Negative (Negative); Ketones,Urine Negative (Negative); Leukocyte Esterase,Urine Negative (Negative); Nitrate,Urine Negative (Negative); Protein,Urine Negative (Negative); Urobilinogen,Urine 0.2 EU/dl (0.2)
[2021-10-18 19:54] LABS: Basophils # 0.1 K/mm3 (0-0.2); Basophils % 1.3 % (0.1-2.0); Eosinophils # 0.1 K/mm3 (0.0-0.4); Hematocrit 46.8 % (37.0-47.0); Lymphocytes # 1.7 K/mm3 (0.7-4.5); Lymphocytes % 19.1 % (10-50); Mean Corpuscular HGB Conc 34.1 g/dL (31.8-35.4); Mean Corpuscular Hemoglobin 30.1 pg (27.0-31.2); Mean Corpuscular Volume 88.3 fl (81-99); Mean Platelet Volume 8.5 fl (7.4-10.4); Monocytes # 0.4 K/mm3 (0.1-1.0); Monocytes % 4.4 % (1.7-9.3); Neutrophils # 6.4 K/mm3 (1.8-7.8); Neutrophils % 74.1 % (37.0-80.0); Platelet Count 301 K/mm3 (142-424); Red Cell Distribution Width 13.7 % (11.5-17.5); White Blood Count 8.7 K/mm3 (4.8-10.8)
[2021-10-18 20:03] LABS: Chloride 105 mmol/L (98-107); Potassium 3.3 mmoL/L (3.5-5.1); Sodium 139 mmol/L (136-145)
[2021-10-18 20:06] LABS: Alanine Aminotransferase 26 U/L (12-78); Albumin Level 4.4 g/dl (3.5-5.0); Albumin/Globulin Ratio 1.5 (1.1-1.8); Alkaline Phosphatase 259 U/L (38-126); Amylase 64 U/L (30-110); Anion Gap 10.3 mEq/L (5-15); Aspartate Amino Transferase 33 U/L (14-36); Bilirubin,Total 0.7 mg/dl (0.2-1.3); Blood Urea Nitrogen 6 mg/dl (7-17); Calcium 10.2 mg/dl (8.4-10.2); Carbon Dioxide 27 mmol/L (22.0-30.0); Creatinine Clearance Estimated 87 mL/min (50-200); Estimated Glomerular Filt Rate 102 ml/min (>60); GFR (African American) 124 ML/MIN (>60); Glucose 101 mg/dl (74-100); Lipase 191 U/L (23-300); Total Protein,Serum 7.4 g/dl (6.3-8.2)
--- NOTE | 2021-10-18 20:25 | CT_ITS ---
PROCEDURE INFORMATION: Exam: CT Abdomen And Pelvis With Contrast Exam date and time: 10/18/2021 8:33 PM Age: 61 years old Clinical indication: Abdominal pain; Localized; Right upper quadrant (ruq); Additional info: Abdominal pain ruq TECHNIQUE: Imaging protocol: Computed tomography of the abdomen and pelvis with contrast. Radiation optimization: All CT scans at this facility use at least one of these dose optimization techniques: automated exposure control; mA and/or kV adjustment per patient size (includes targeted exams where dose is matched to clinical indication); or iterative reconstruction. Contrast material: ISOVUE; Contrast volume: 75 ml; Contrast route: IV; COMPARISON: CT ABDOMEN PELVIS W CON 11/11/2020 11:37 AM FINDINGS: Lungs: No mass/infiltrate at either lung base. No pleural effusion. Liver: The liver is normal in size and attenuation. No intrahepatic biliary dilitation. Gallbladder and bile ducts: Normal. No calcified stones. No ductal dilation. Gallbladder wall thickness is normal. Pancreas: Normal. No ductal dilation. Spleen: Normal. No splenomegaly. Adrenal glands: There is an 11 mm well-circumscribed mass which is isoechoic with respect to adjacent spleen, within the left adrenal gland. Primary diagnostic consideration is an adenoma. It is stable in size since 11/11/2020. Kidneys and ureters: Stable 1.8 cm cortical cyst interpolar region of the right kidney. No hydronephrosis. Stomach and bowel: The stomach demonstrates limited distention. There is diffuse thickening of the wall of the stomach. This is greatest within the fundus and corpus of the stomach. There are also prominent rugal folds present within the antrum. This raises the possibility of gastritis. No obstruction. No mucosal thickening. Small bowel mesentery is normal. Appendix: Unremarkable. Intraperitoneal space: Unremarkable. No free air. No significant fluid collection. Arteries: Minimal arterial atheromatous calcifications are noted. No abdominal aortic aneurysm. There are calcified phleboliths within the pelvis. Lymph nodes: Unremarkable. No enlarged lymph nodes. Urinary bladder: Unremarkable as visualized. Reproductive: Hysterectomy has been performed. Bones/joints: Unremarkable. No acute fracture. Soft tissues: Unremarkable. IMPRESSION: 1. There is a stable 11 mm nodule arising within the left adrenal gland. Primary diagnostic consideration is an adenoma. It is stable since 11/11/2020. 2. Limited gastric distention. Diffuse thickening of the wall of the stomach with prominent rugal folds within the antrum. This raises the possibility of gastritis. 3. Hysterectomy has been performed.
[2021-10-18 20:36] LABS: Troponin I < 0.01 ng/ml (0.00-0.034)
[2021-10-18 21:07] LABS: Bacteria,Urine Trace /lpf; WBC,Urine Occasional #/hpf (0-3)
[2021-10-18 21:11] VITALS: BP 172/92; PULSE 72; O2SAT 98
--- NOTE | 2021-10-18 21:14 | PC.NURSE ---
Pt resting well. No new needs. Visitor remains at bedside.
[2021-10-18 21:48] VITALS: BP 164/72; PULSE 70; RESP 16; TEMP 36.7; O2SAT 98
== END 2021-10-18 21:50 | disposition home or self-care (01) ==
PROVIDERS: Emergency Medicine; Emergency Provider Student in an Organized Health Care Education/Training Program; PCP Nurse Practitioner Family
DX: R10.13 Epigastric pain (principal); I10 Essential (primary) hypertension; E78.5 Hyperlipidemia, unspecified; R00.2 Palpitations; F17.210 Nicotine dependence, cigarettes, uncomplicated; F41.8 Other specified anxiety disorders; Z79.899 Other long term (current) drug therapy
CPT/HCPCS: 74177; 80053; 81001; 82150; 83690; 84484; 85025; 93005; 96365; 96375; 99284; J2405; Q9967

== ENCOUNTER → 2022-08-12 08:45 | Outpatient (CLI) | payer OTHER, SELFPAY ==
--- NOTE | 2022-08-12 08:54 | NM_ITS ---
FINAL REPORT CLINICAL HISTORY: ELEVATED PARATHYROID HORMONE 9:15AM 20.5 MCI TC SESTAMIBI FINDINGS: 20.5 mCi Technetium Sestamibi was administered. Planar imaging was performed early and two-hour delayed of the neck and upper thorax. Early imaging shows physiologic uptake within the upper neck involving the salivary glands and lower neck involving the thyroid gland. On delayed imaging there is retained activity in the lower right neck that could represent parathyroid adenoma. IMPRESSION: Possible parathyroid adenoma in the lower right neck. Recommend correlation with thyroid ultrasound. Reviewed, Interpreted and Dictated by Montserrat Macario MD Transcribed by Alexei Lala Authenticated and [facility]
== END ==
PROVIDERS: PCP Nurse Practitioner Family; Visit Provider Nurse Practitioner Family
DX: E21.3 Hyperparathyroidism, unspecified (principal)
CPT/HCPCS: 78070; A9500

== ENCOUNTER → 2022-08-28 16:38 | Outpatient (CLI) | payer OTHER, SELFPAY ==
--- NOTE | 2022-08-28 16:54 | MM_ITS ---
PROCEDURE INFORMATION: Exam: MG Bilateral Screening 3D Mammography Exam date and time: 08/28/2022 4:47 PM Age: 61 years old Clinical indication: Screening examination . Family history of breast carcinoma. TECHNIQUE: Imaging protocol: Bilateral Screening tomosynthesis and 2D mammography including computer-aided detection (CAD) when performed. COMPARISON: 1. MG MM DIG SCREENING MAMM BI W/CAD 05/14/2021 10:51 AM 2. MG DMSB DIG MAMM-SCREEN KASIE 12/01/2014 11:38 AM 3. MG DXUAVL MAMM DX-UNI.ADD.VIEWS-LT 04/01/2012 1:24 PM FINDINGS: MAMMOGRAPHY: Breast composition: There are scattered areas of fibroglandular density. Mass: No suspicious masses. Architectural distortion: No suspicious distortion. Calcifications: No suspicious calcifications. Asymmetric density: None. Skin thickening: None. Axillary adenopathy: None. IMPRESSION: No mammographic evidence of malignancy. Annual screening is recommended unless otherwise clinically indicated. ASSESSMENT: BI-RADS Category 1: Negative
== END ==
PROVIDERS: PCP Nurse Practitioner Family; Visit Provider Nurse Practitioner Family
DX: Z12.31 Encounter for screening mammogram for malignant neoplasm of breast (principal)
CPT/HCPCS: 77063; 77067

== ENCOUNTER → 2023-02-05 16:42 | Outpatient (CLI) | payer OTHER, SELFPAY ==
[2023-02-05 19:13] LABS: Amphetamine/Metha Screen,Urine Negative ng/ml (<1000); Barbiturates Screen,Urine Negative ng/ml (<200); Benzodiazepines Screen,Urine Positive ng/ml (<200); Cannabinoid Screen,Urine Negative ng/ml (<50); Cocaine Screen,Urine Negative ng/ml (<300); Methadone Screen,Urine Negative ng/ml (<300); Opiate Screen,Urine Negative ng/ml (<300); Phencyclidine Screen,Urine Negative ng/ml (<25)
== END ==
PROVIDERS: Visit Provider Nurse Practitioner Psychiatric/Mental Health
DX: Z51.81 Encounter for therapeutic drug level monitoring (principal)
CPT/HCPCS: 80305

== ENCOUNTER 2024-01-03 09:45 | Emergency (ER) | payer OTHER, SELFPAY ==
[2024-01-03] VITALS (9 sets, daily range): BP systolic 118–151; BP diastolic 69–88; PULSE 65–72; RESP 18–20; TEMP 36.9; O2SAT 92–99; BMI 21.6
--- NOTE | 2024-01-03 09:58 | HMH.EDGENADL ---
Discharge Plan Disposition Patient Disposition: Home, Self-Care Condition: Good Prescriptions Prescriptions: New cefdinir 300 mg capsule 300 mg PO BID 10 Days Qty: 20 0RF ondansetron 4 mg tablet,disintegrating 4 mg PO Q8H PRN (Reason: nausea and vomiting) 5 Days Qty: 10 0RF oxycodone 5 mg tablet 5 mg PO BID PRN (Reason: pain) Qty: 10 0RF No Action atorvastatin 40 mg tablet 40 mg PO HS diazepam [Valium] 2 mg tablet 2 mg PO HS PRN (Reason: anxiety) 30 Days Qty: 30 2RF trazodone 150 mg tablet 150 mg PO HS 90 Days Qty: 90 1RF venlafaxine [Effexor XR] 75 mg capsule,extended release 24hr 75 mg PO DAILY Qty: 90 0RF omeprazole 40 mg capsule,delayed release(DR/EC) 40 mg PO DAILY 90 Days Qty: 90 0RF bisoprolol fumarate 10 MG tablet 10 mg PO HS melatonin 10 MG tablet 10 mg PO HS lisinopril 20 MG tablet 20 mg PO DAILY celecoxib 200 MG capsule 200 mg PO DAILY amlodipine 5 MG tablet 5 mg PO DAILY ondansetron 4 MG tablet,disintegrating 4 mg PO TIDP PRN (Reason: Nausea) 3 Days Qty: 9 0RF sucralfate 1 GM/10 ML suspension 1 g PO TID 5 Days Qty: 15 0RF omeprazole 20 MG capsule,delayed release(DR/EC) 20 mg PO DAILY 14 Days Qty: 14 0RF potassium chloride 10 MEQ tablet extended release 10 meq PO DAILY PRN (Reason: WITH LASIX) furosemide 20 MG tablet 20 mg PO DAILY PRN (Reason: Edema) Referrals Follow up/Referrals: Tasha Delong APRN [Primary Care Provider] - See instructions Activity Restrictions/Add. Instructions Additional Instructions/Restrictions: As we discussed, after consideration of being admitted to the hospital versus being discharged, given your improvement of symptoms, your ability to drink liquids, and your preference, we are proceeding with discharging you from the hospital at this time with antibiotics, pain medication, nausea medication. Please follow-up with your primary care physician. Please return with any new or worsening symptoms, particularly if you have continued constipation, if you are unable to pass gas, if you are unable to keep liquids down, or any other new or worsening symptoms. Clinical Impressions Clinical Impression: Pyelonephritis Discharge ED Provider: Bola Carlos General Adult HPI General Chief complaint: PAIN Stated complaint: vomiting, abd pain Time Seen by Provider: 01/03/24 09:58 History of Present Illness HPI narrative: The patient presents with intermittent abdominal pain, which has been ongoing for approximately 72 hours. The pain is located in the lower abdomen but has also been experienced in the upper abdomen. The patient reports a history of gastritis and has previously experienced similar pain due to this condition. The pain is accompanied by nausea, but the patient has not been vomiting significantly. The patient has not had a bowel movement since last week and has had difficulty passing gas, although they have been able to pass some. The patient also reports mild pain during urination. The pain is dull, nonradiating. Associated symptoms include dysuria. The patient did have recent antibiotic use for dental procedure. The patient has experienced fever-like symptoms, feeling hot recently. The patient has not had any abdominal surgeries, such as gallbladder or appendix removal. The patient's pain does not seem to be exacerbated by meals, but they do report increased nausea. Please note that above description of symptoms, in this electronic medical record under categorization of recalled from ER triage doctor by RN are reflective of an initial nursing assessment, however, is not reflective of my full history and physical exam that was personally taken and clarified. Consequentially, this preceding description of symptoms, which may include the patient's categorized chief complaint in the EMR, do not reflect my personal clinical impression, and the ultimate description of history of present illness and patient stated complaints should be deferred to this section of the note. Unless stated otherwise or congruent with this section of the note, additional signs, symptoms, or incongruence should be interpreted as inaccurate with my clinical impression. Related Data Home Medications Medication Instructions Recorded Confirmed atorvastatin 40 mg tablet 40 mg PO HS Cholesterol 11/04/17 12/01/23 bisoprolol fumarate 10 mg tablet 10 mg PO HS High blood pressure 04/27/18 12/01/23 furosemide 20 mg tablet 20 mg PO DAILY PRN Edema 08/17/18 12/01/23 potassium chloride 10 mEq 10 meq PO DAILY PRN WITH LASIX 08/17/18 12/01/23 tablet,extended release melatonin 10 mg tablet 10 mg PO HS Insomnia 11/11/20 12/01/23 celecoxib 200 mg capsule 200 mg PO DAILY Pain 11/12/20 12/01/23 lisinopril 20 mg tablet 20 mg PO DAILY High blood pressure 11/12/20 12/01/23 amlodipine 5 mg tablet 5 mg PO DAILY htn 10/18/21 12/01/23 Previous Rx's Medication Instructions Recorded omeprazole 20 mg capsule,delayed 20 mg PO DAILY 14 days #14 caps 10/18/21 release ondansetron 4 mg disintegrating 4 mg PO TIDP PRN Nausea 3 days #9 10/18/21 tablet tabs sucralfate 100 mg/mL oral 1 g PO TID 5 days #15 grams 10/18/21 suspension omeprazole 40 mg capsule,delayed 40 mg PO DAILY STOMACH 90 days #90 04/30/23 release caps diazepam 2 mg tablet (Valium) 2 mg PO HS PRN anxiety 30 days #30 11/12/23 tabs trazodone 150 mg tablet 150 mg PO HS sleep 90 days #90 tabs 11/12/23 venlafaxine 75 mg capsule,extended 75 mg PO DAILY #90 caps 11/12/23 release 24 hr (Effexor XR) cefdinir 300 mg capsule 300 mg PO BID 10 days #20 caps 01/03/24 ondansetron 4 mg disintegrating 4 mg PO Q8H PRN nausea and 01/03/24 tablet vomiting 5 days #10 tabs oxycodone 5 mg tablet 5 mg PO BID PRN pain #10 tabs 01/03/24 Allergies Allergy/AdvReac Type Severity Reaction Status Date / Time No Known Allergies Allergy Verified 12/01/23 13:35 [facility] Disclaimer: The information contained in this section may have been updated after the patient was seen, as this information can be updated by other users. Medical History (Updated 01/03/24 @ 12:38 by Bola Carlos MD) Insomnia Major depressive disorder Generalized anxiety disorder Anxiety Social History Smoking Status: Never smoker second hand exposure: Yes alcohol intake: never substance use type: prescription drug current occupational status: other Travel in the last 8 weeks: None household members: spouse housing: house number of children: 2 current occupational exposures/hazards: No caffeine: Yes ROS Obtained: Yes other As per HPI Physical Exam General General appearance: alert and in no apparent distress Head Head exam: atraumatic and normocephalic Eye Eye exam: Present normal appearance Neck Neck exam: Present normal inspection Chest Chest inspection: Present normal inspection and symmetric chest wall rise Respiratory Respiratory exam: Present normal lung sounds bilaterally; Absent respiratory distress Cardiovascular Cardiovascular exam: Present regular rate and normal rhythm Abdominal Exam Abdominal exam: Present soft Comment: Mild tenderness to palpation in bilateral lower quadrants without rebound tenderness, guarding, distention, rigidity, bilateral CVA tenderness to palpation Neurological Exam Neurological exam: Present alert and oriented X3 Psychiatric Psychiatric exam: Present normal affect and normal mood Skin Skin exam: Present warm and dry Medical Decision Making Medical Records Medical records reviewed: Yes I reviewed the patient's medical records. [place]jas Inquiry Pt receiving controlled substance: No Vital Signs: 01/03/24 09:52 01/03/24 10:00 01/03/24 10:04 Temperature 98.4 F Temperature Source Oral Pulse Rate 69 69 Pulse Rate [Left Radial] 69 Respiratory Rate 20 Blood Pressure 131/85 118/79 Blood Pressure [Right Arm] 151/88 H Blood Pressure Mean Blood Pressure Mean [Right Arm] 109 02 Sat by Pulse Oximetry 99 97 99 Oxygen Delivery Method 01/03/24 10:30 01/03/24 11:12 01/03/24 11:30 Temperature Temperature Source Pulse Rate 65 67 72 Pulse Rate [Left Radial] Respiratory Rate Blood Pressure 123/76 143/78 H 132/69 Blood Pressure [Right Arm] Blood Pressure Mean Blood Pressure Mean [Right Arm] 02 Sat by Pulse Oximetry 97 95 97 Oxygen Delivery Method 01/03/24 12:00 01/03/24 12:30 01/03/24 12:55 Temperature 98.4 F Temperature Source Oral Pulse Rate 70 69 70 Pulse Rate [Left Radial] Respiratory Rate 18 Blood Pressure 127/74 144/74 H 144/74 H Blood Pressure [Right Arm] Blood Pressure Mean 97 Blood Pressure Mean [Right Arm] 02 Sat by Pulse Oximetry 92 L 92 L Oxygen Delivery Method Room Air Room Air Room Air Lab Data Lab Results 01/03/24 10:00: WBC 12.8 H, RBC 5.33, Hgb 16.2, Hct 47.2 H, MCV 88.7, MCH 30.5, MCHC 34.3, RDW 13.8, Plt Count 210, MPV 9.3, Neut % (Auto) 85.8 H, Lymph % (Auto) 6.6 L, [place] % (Auto) 6.1, Eos % (Auto) 0.5, Baso % (Auto) 1.0, Neut # (Auto) 11.0 H, Lymph # (Auto) 0.9, [place] # (Auto) 0.8, Eos # (Auto) 0.1, Baso # (Auto) 0.1, Total Counted 100, Neutrophils % (Manual) 90 H, Lymphocytes % (Manual) 6 L, Monocytes % (Manual) 4, Platelet Estimate Normal, RBC Morphology Normal, Sodium 137, Potassium 4.8, Chloride 101, Carbon Dioxide 29, Anion Gap 11.8, BUN 10, Creatinine 0.60, Estimated Creat Clear 55, Estimated GFR 102, Est GFR ( Amer) 123, Glucose 126 H, Calcium 9.4, Total Bilirubin 1.5 H, AST 45 H, ALT 20, Alkaline Phosphatase 133 H, Total Protein 8.9 H, Albumin 4.6, Globulin 4.3 H, Albumin/Globulin Ratio 1.1, Lipase 20 L, Urine Color Yellow, Urine Appearance Clear, Urine pH 6.0, Ur Specific [place] >= 1.030, Urine Protein 2+, Urine Glucose (UA) Negative, Urine Ketones 1+, Urine Blood 2+, Urine Nitrate Positive, Urine Bilirubin 1+ A, Urine Urobilinogen 0.2, Ur Leukocyte Esterase 2+ A, Urine WBC 5-10, Ur Squamous Epith Cells 3-5 01/03/24 10:00 01/03/24 10:00 Orders (Tests/Meds): ED MEDICATIONS Discontinued Medications Generic Name Dose Route Start Last Admin Trade Name Freq PRN Reason Stop Dose Admin Belladonna Alkaloids 60 ml 01/03/24 10:24 01/03/24 10:47 Belladonna Alkaloids 60 Ml Ml PO 01/03/24 10:25 60 ml ONCE ONE Administration Lactated Ringer's 1,000 mls @ 999 mls/hr 01/03/24 10:24 01/03/24 10:48 Lactated Ringer's 1000 Ml Bag IV 01/03/24 11:24 999 mls/hr .Q1H1M ONE Administration Ceftriaxone Sodium 1 gm/ 50 mls @ 100 mls/hr 01/03/24 12:05 01/03/24 12:31 Sodium Chloride IV 01/03/24 12:34 100 mls/hr ONCE ONE Administration Iopamidol 75 ml 01/03/24 11:11 01/03/24 11:11 Iopamidol-370 (76%);100ml Bottle IV 01/03/24 11:12 75 ml ONCE ONE Administration Morphine Sulfate 4 mg 01/03/24 10:24 01/03/24 10:47 Morphine 4mg/Ml Syringe IV 01/03/24 10:25 4 mg ONCE ONE Administration Ondansetron HCl 4 mg 01/03/24 10:24 01/03/24 10:47 Ondansetron 4mg/2ml Vial IV 01/03/24 10:25 4 mg ONCE ONE Administration Sodium Chloride 10 ml 01/03/24 11:11 01/03/24 11:11 Sodium Chloride 0.9% 10ml Syr (Rad Only) IV 02/02/24 11:10 10 ml NEEDED PRN Administration Maintain IV Site ORDERS Category Date Time Status CT abdomen pelvis w con Stat Cat Scan 01/03/24 10:24 Completed CBC w/Auto Diff [Complete Blood Count Auto Diff] Stat Lab 01/03/24 10:00 Completed CMP [Comprehensive Metabolic Panel] Stat Lab 01/03/24 10:00 Completed Lipase Stat Lab 01/03/24 10:00 Completed Urinalysis and Microscopic Stat Lab 01/03/24 10:00 Completed Urine Culture Stat Micro 01/03/24 10:00 Received Medical Decision Narrative: Patient with history and exam per above presenting for evaluation of abdominal pain Diagnoses considered include cystitis, pyelonephritis, bowel obstruction, enteritis, colitis, diverticulitis, urolithiasis, clinical exam at this time not consistent with mesenteric ischemia, no right upper quadrant pain to suggest cholelithiasis, cholecystitis, ascending cholangitis. ED workup and treatment included: ED MEDICATIONS Discontinued Medications Generic Name Dose Route Start Last Admin Trade Name Freq PRN Reason Stop Dose Admin Belladonna Alkaloids 60 ml 01/03/24 10:24 01/03/24 10:47 Belladonna Alkaloids 60 Ml Ml PO 01/03/24 10:25 60 ml ONCE ONE Administration Lactated Ringer's 1,000 mls @ 999 mls/hr 01/03/24 10:24 01/03/24 10:48 Lactated Ringer's 1000 Ml Bag IV 01/03/24 11:24 999 mls/hr .Q1H1M ONE Administration Ceftriaxone Sodium 1 gm/ 50 mls @ 100 mls/hr 01/03/24 12:05 01/03/24 12:31 Sodium Chloride IV 01/03/24 12:34 100 mls/hr ONCE ONE Administration Iopamidol 75 ml 01/03/24 11:11 01/03/24 11:11 Iopamidol-370 (76%);100ml Bottle IV 01/03/24 11:12 75 ml ONCE ONE Administration Morphine Sulfate 4 mg 01/03/24 10:24 01/03/24 10:47 Morphine 4mg/Ml Syringe IV 01/03/24 10:25 4 mg ONCE ONE Administration Ondansetron HCl 4 mg 01/03/24 10:24 01/03/24 10:47 Ondansetron 4mg/2ml Vial IV 01/03/24 10:25 4 mg ONCE ONE Administration Sodium Chloride 10 ml 01/03/24 11:11 01/03/24 11:11 Sodium Chloride 0.9% 10ml Syr (Rad Only) IV 02/02/24 11:10 10 ml NEEDED PRN Administration Maintain IV Site ORDERS Category Date Time Status CT abdomen pelvis w con Stat Cat Scan 01/03/24 10:24 Completed CBC w/Auto Diff [Complete Blood Count Auto Diff] Stat Lab 01/03/24 10:00 Completed CMP [Comprehensive Metabolic Panel] Stat Lab 01/03/24 10:00 Completed Lipase Stat Lab 01/03/24 10:00 Completed Urinalysis and Microscopic Stat Lab 01/03/24 10:00 Completed Urine Culture Stat Micro 01/03/24 10:00 Received Labs were independently interpreted by me, significant for Leukocytosis to 12.8, creatinine within normal limits, total bilirubin 1.5, AST 45, ALT 20, lipase within normal limits, urinalysis with pyuria, bacteriuria, nitrite positive Imaging was independently visualized and interpreted by me, significant for findings consistent with pyelonephritis bilaterally as well as ileus versus developing small bowel obstruction Please refer to radiology report for full details. Upon repeat evaluation patient was able to tolerate p.o. intake and had improvement of pain. I discussed my clinical impression including diagnosis of pyelonephritis and, although patient has been able to pass flatus, the concerns on imaging for developing small bowel obstruction. After shared decision making patient strongly elects to be discharged from the hospital at this time with strict return precautions and course of p.o. antibiotics for pyelonephritis given that she has been able to pass flatus, tolerate p.o. intake, and has improvement of pain. I discussed the risks of discharge and did recommend admission to the hospital for her symptoms, however patient is able to express an understanding of these risks and will follow-up closely and return with any new or worsening symptoms. She was discharged from the hospital with antibiotics, antiemetics, and as needed analgesia. Critical Care Critical Care Time Critical Care Time: No
--- NOTE | 2024-01-03 10:24 | CT_ITS ---
PROCEDURE INFORMATION: Exam: CT Abdomen And Pelvis With Contrast Exam date and time: 01/03/2024 11:08 AM Age: 63 years old Clinical indication: Abdominal pain; Additional info: Abdominal/flank pain, n/v TECHNIQUE: Imaging protocol: Computed tomography of the abdomen and pelvis with contrast. Radiation optimization: All CT scans at this facility use at least one of these dose optimization techniques: automated exposure control; mA and/or kV adjustment per patient size (includes targeted exams where dose is matched to clinical indication); or iterative reconstruction. Contrast material: ISOVUE; Contrast volume: 75 ml; Contrast route: IV; COMPARISON: CT ABDOMEN PELVIS W CON 10/18/2021 8:33 PM FINDINGS: Lungs: Bibasilar atelectasis versus parenchymal scarring. Liver: Decreased density throughout the liver compatible with hepatic steatosis. Gallbladder and biliary ducts: Gallbladder unremarkable Pancreas: Pancreatic calcifications compatible with chronic pancreatitis. Findings new since the previous study. Spleen: The spleen is unremarkable. Adrenal glands: Persistent 11 mm left adrenal mass compatible with an adenoma. Findings stable since 10/18/2021. Kidneys and ureters: Wedge-shaped regions of diminished enhancement are present within the both kidneys most pronounced on the right. Associated perinephric stranding. Findings compatible with acute pyelonephritis. Bilateral renal cysts again demonstrated Stomach and bowel: Fluid within mildly distended proximal small bowel loops . Findings compatible with ileus. Could not entirely exclude developing small bowel obstruction. Appendix: No evidence of appendicitis. Intraperitoneal space: Unremarkable. No free air. No significant fluid collection. Vasculature: Unremarkable. No abdominal aortic aneurysm. Lymph nodes: Nonspecific retroperitoneal adenopathy Urinary bladder: Unremarkable as visualized. Reproductive: Hysterectomy Bones/joints: Bone window Soft tissues: Unremarkable. IMPRESSION: 1. Findings compatible with acute pyelonephritis. 2. Fluid within mildly distended proximal small bowel loops. Findings compatible with ileus. Could not entirely exclude developing small bowel obstruction. 3. Please see above report for discussion of nonacute findings.
[2024-01-03 10:31] LABS: Microscopic, Urine URINE MICROSCOPIC (MICROSCOPIC)
[2024-01-03 10:34] LABS: Appearance,Urine CLEAR (Clear); Blood, Urine 2+ (Negative); Color,Urine YELLOW (Yellow); Glucose,Urine (UA) Negative (Negative); Ketones,Urine 1+ (Negative); Leukocyte Esterase,Urine 2+ (Negative); Nitrate,Urine POSITIVE (Negative); Protein,Urine 2+ (Negative); Specific Gravity, Urine >= 1.030 (1.005-1.030); Urobilinogen,Urine 0.2 EU/dl (0.2)
[2024-01-03 10:37] LABS: Alanine Aminotransferase 20 U/L (12-78); Albumin Level 4.6 g/dl (3.5-5.0); Albumin/Globulin Ratio 1.1 (1.1-1.8); Alkaline Phosphatase 133 U/L (38-126); Anion Gap 11.8 mEq/L (5-15); Aspartate Amino Transferase 45 U/L (14-36); Bilirubin,Total 1.5 mg/dl (0.2-1.3); Blood Urea Nitrogen 10 mg/dl (7-17); Calcium 9.4 mg/dl (8.4-10.2); Carbon Dioxide 29 mmol/L (22.0-30.0); Chloride 101 mmol/L (98-107); Creatinine Clearance Estimated 55 mL/min (50-200); Estimated Glomerular Filt Rate 102 ml/min (>60); GFR (African American) 123 ML/MIN (>60); Globulin 4.3 g/dL (1.3-3.2); Glucose 126 mg/dl (74-100); Potassium 4.8 mmoL/L (3.5-5.1); Sodium 137 mmol/L (136-145); Total Protein,Serum 8.9 g/dl (6.3-8.2)
[2024-01-03] MEDS: ONDANSETRON 4MG/2ML VIAL 4 MG IV (10:47)
[2024-01-03] MEDS: BELLADONNA ALKALOIDS 60 ML ML PO (10:47)
[2024-01-03] MEDS: MORPHINE 4MG/ML SYRINGE 4 MG IV (10:47)
[2024-01-03 10:48] LABS: Basophils # 0.1 K/mm3 (0-0.2); Eosinophils # 0.1 K/mm3 (0.0-0.4); Eosinophils % 0.5 % (0.1-12.0); Hematocrit 47.2 % (37.0-47.0); Hemoglobin 16.2 g/dL (12.2-16.2); Lymphocytes # 0.9 K/mm3 (0.7-4.5); Lymphocytes % 6.6 % (10-50); Mean Corpuscular HGB Conc 34.3 g/dL (31.8-35.4); Mean Corpuscular Hemoglobin 30.5 pg (27.0-31.2); Mean Corpuscular Volume 88.7 fl (81-99); Mean Platelet Volume 9.3 fl (7.4-10.4); Monocytes # 0.8 K/mm3 (0.1-1.0); Monocytes % 6.1 % (1.7-9.3); Neutrophils % 85.8 % (37.0-80.0); Platelet Count 210 K/mm3 (142-424); Red Blood Count 5.33 M/mm3 (4.20-5.40); Red Cell Distribution Width 13.8 % (11.5-17.5); White Blood Count 12.8 K/mm3 (4.8-10.8)
[2024-01-03] MEDS: LACTATED RINGERS 1000ML 1,000 ML 999 ML IV (10:48)
[2024-01-03 10:50] LABS: Lipase 20 U/L (23-300)
[2024-01-03 11:00] LABS: Bilirubin,Urine 1+ (Negative)
[2024-01-03 11:01] LABS: MANUAL DIFFERENTIAL MANUAL DIFFERENTIAL (MANUAL DIFF)
[2024-01-03] MEDS: SODIUM CHLORIDE 0.9% 10ML SYR (RAD ONLY) 10 ML IV (11:11)
[2024-01-03] MEDS: IOPAMIDOL-370 (76%);100ML BOTTLE 75 ML IV (11:11)
[2024-01-03] MEDS: CEFTRIAXONE 1 GM 1 GM in 0.9 % SODIUM CHLORIDE 50 ML IV (12:31)
[2024-01-03 13:54] LABS: Lymphocytes % 6 % (10-50); Monocytes % 4 % (2-9); Neutrophils % 90 % (42-76); Platelet Estimate Normal; RBC Morphology Normal; Total Cells Counted 100
--- NOTE | 2024-01-04 12:02 | PC.NURSE ---
urine culture discussed with , pt dc with cefdinir, ntd
--- NOTE | 2024-01-06 10:57 | PC.NURSE ---
Reviewed urine culture results with Dr. Chisholm. pt was d/c on Cefdinir and this is an appropriate abx. ntd.
== END 2024-01-03 12:58 | disposition home or self-care (01) ==
PROVIDERS: Emergency Provider Emergency Medicine; PCP Nurse Practitioner Family
DX: N10 Acute pyelonephritis (principal); B96.29 Other Escherichia coli [E. coli] as the cause of diseases classified elsewhere; R10.30 Lower abdominal pain, unspecified; R11.0 Nausea; R30.0 Dysuria
CPT/HCPCS: 74177; 80053; 81001; 83690; 85007; 85025; 85027; 87086; 87088; 87186; 96361; 96365; 96375; 99285; J0696; J2270; J2405; J7120; Q9967

== ENCOUNTER 2024-04-07 18:10 | Emergency (ER) | payer OTHER, SELFPAY ==
[2024-04-07 18:12] VITALS: BP 163/87; PULSE 68; RESP 18; TEMP 36.7; O2SAT 96; BMI 22.4
--- NOTE | 2024-04-07 18:15 | ED_ITS ---
Discharge Plan Disposition Patient Disposition: Home, Self-Care Condition: Good Prescriptions Prescriptions: New oxycodone 5 mg tablet 5 mg PO Q6H PRN (Reason: pain) Qty: 10 0RF ondansetron 4 mg tablet,disintegrating 4 mg PO Q8H PRN (Reason: nausea and vomiting) 5 Days Qty: 10 0RF No Action atorvastatin 40 mg tablet 40 mg PO HS diazepam [Valium] 2 mg tablet 2 mg PO HS PRN (Reason: anxiety) 30 Days Qty: 30 5RF trazodone 150 mg tablet 150 mg PO HS 90 Days Qty: 90 1RF venlafaxine [Effexor XR] 75 mg capsule,extended release 24hr 75 mg PO DAILY Qty: 90 1RF omeprazole 40 mg capsule,delayed release(DR/EC) 40 mg PO DAILY 90 Days Qty: 90 0RF bisoprolol fumarate 10 MG tablet 10 mg PO HS melatonin 10 MG tablet 10 mg PO HS lisinopril 20 MG tablet 20 mg PO DAILY celecoxib 200 MG capsule 200 mg PO DAILY amlodipine 5 MG tablet 5 mg PO DAILY ondansetron 4 MG tablet,disintegrating 4 mg PO TIDP PRN (Reason: Nausea) 3 Days Qty: 9 0RF sucralfate 1 GM/10 ML suspension 1 g PO TID 5 Days Qty: 15 0RF omeprazole 20 MG capsule,delayed release(DR/EC) 20 mg PO DAILY 14 Days Qty: 14 0RF potassium chloride 10 MEQ tablet extended release 10 meq PO DAILY PRN (Reason: WITH LASIX) furosemide 20 MG tablet 20 mg PO DAILY PRN (Reason: Edema) ondansetron 4 mg tablet,disintegrating 4 mg PO Q8H PRN (Reason: nausea and vomiting) 5 Days Qty: 10 0RF oxycodone 5 mg tablet 5 mg PO BID PRN (Reason: pain) Qty: 10 0RF Referrals Follow up/Referrals: Tasha Delong APRN [Primary Care Provider] - See instructions Activity Restrictions/Add. Instructions Additional Instructions/Restrictions: As we discussed, your labs show an elevated liver enzyme level and your CT scan showed acute on chronic pancreatitis. I have prescribed pain and medication for nausea for you to take as needed. Please make sure you are drinking plenty of liquids in order to stay hydrated. Please return with any new or worsening symptoms. Clinical Impressions Clinical Impression: Acute pancreatitis Instructions Patient Instructions: Acute Pancreatitis Print Language Print Language: Japanese Discharge ED Provider: Bola Carlos General Adult HPI General Chief complaint: Abdominal Pain Stated complaint: pain in abdomin,nausea Time Seen by Provider: 04/07/24 18:15 History of Present Illness HPI narrative: Patient presents for evaluation of sharp epigastric abdominal pain, associated with previous history of pancreatitis, and nausea, nonbloody emesis, no previous therapies, symptoms are acute in onset, constant, stable in course, she has been able to move her bowels, is able to pass flatus. No hematemesis. No chest pain or shortness of breath. She reports symptoms were acute in onset after eating Spanish food earlier today. She also recently had teeth removed. No syncope or presyncope. Please note that above description of symptoms, in this electronic medical record under categorization of recalled from ER triage doctor by RN are reflective of an initial nursing assessment, however, is not reflective of my full history and physical exam that was personally taken and clarified. Consequentially, this preceding description of symptoms, which may include the patient's categorized chief complaint in the EMR, do not reflect my personal clinical impression, and the ultimate description of history of present illness and patient stated complaints should be deferred to this section of the note. Unless stated otherwise or congruent with this section of the note, additional signs, symptoms, or incongruence should be interpreted as inaccurate with my clinical impression. Related Data Home Medications ?Medication ?Instructions ?Recorded ?Confirmed atorvastatin 40 mg tablet 40 mg PO HS Cholesterol 11/04/17 03/26/24 bisoprolol fumarate 10 mg tablet 10 mg PO HS High blood pressure 04/27/18 03/26/24 furosemide 20 mg tablet 20 mg PO DAILY PRN Edema 08/17/18 03/26/24 potassium chloride 10 mEq 10 meq PO DAILY PRN WITH LASIX 08/17/18 03/26/24 tablet,extended release melatonin 10 mg tablet 10 mg PO HS Insomnia 11/11/20 03/26/24 celecoxib 200 mg capsule 200 mg PO DAILY Pain 11/12/20 03/26/24 lisinopril 20 mg tablet 20 mg PO DAILY High blood pressure 11/12/20 03/26/24 amlodipine 5 mg tablet 5 mg PO DAILY htn 10/18/21 03/26/24 Previous Rx's ?Medication ?Instructions ?Recorded omeprazole 20 mg capsule,delayed 20 mg PO DAILY 14 days #14 caps 10/18/21 release ondansetron 4 mg disintegrating 4 mg PO TIDP PRN Nausea 3 days #9 10/18/21 tablet tabs sucralfate 100 mg/mL oral 1 g PO TID 5 days #15 grams 10/18/21 suspension omeprazole 40 mg capsule,delayed 40 mg PO DAILY STOMACH 90 days #90 04/30/23 release caps ondansetron 4 mg disintegrating 4 mg PO Q8H PRN nausea and 01/03/24 tablet vomiting 5 days #10 tabs oxycodone 5 mg tablet 5 mg PO BID PRN pain #10 tabs 01/03/24 diazepam 2 mg tablet (Valium) 2 mg PO HS PRN anxiety 30 days #30 03/17/24 tabs trazodone 150 mg tablet 150 mg PO HS sleep 90 days #90 tabs 03/17/24 venlafaxine 75 mg capsule,extended 75 mg PO DAILY #90 caps 03/17/24 release 24 hr (Effexor XR) ondansetron 4 mg disintegrating 4 mg PO Q8H PRN nausea and 04/07/24 tablet vomiting 5 days #10 tabs oxycodone 5 mg tablet 5 mg PO Q6H PRN pain #10 tabs 04/07/24 Allergies Allergy/AdvReac Type Severity Reaction Status Date / Time No Known Allergies Allergy Verified 03/26/24 09:16 [facility] Disclaimer: The information contained in this section may have been updated after the patient was seen, as this information can be updated by other users. Medical History (Updated 04/07/24 @ 20:12 by Bola Carlos MD) Insomnia Major depressive disorder Generalized anxiety disorder Anxiety Social History Smoking Status: Current every day smoker tobacco type: cigarettes packs per day: 1 second hand exposure: Yes alcohol intake: never substance use type: prescription drug current occupational status: other Travel in the last 8 weeks: None household members: spouse housing: house number of children: 2 current occupational exposures/hazards: No caffeine: Yes Other Medical History Have you received the Flu Vaccine for this season: Yes Have you received the Pneumonia Vaccine: No ROS Obtained: Yes other As per HPI Physical Exam General General appearance: alert and in no apparent distress Head Head exam: atraumatic and normocephalic Eye Eye exam: Present normal appearance Neck Neck exam: Present normal inspection Chest Chest inspection: Present normal inspection and symmetric chest wall rise Respiratory Respiratory exam: Present normal lung sounds bilaterally; Absent respiratory distress Cardiovascular Cardiovascular exam: Present regular rate and normal rhythm Abdominal Exam Abdominal exam: Present soft Neurological Exam Neurological exam: Present alert and oriented X3 Psychiatric Psychiatric exam: Present normal affect and normal mood Skin Skin exam: Present warm and dry Other Other exam information: None peritonitic epigastric abdominal tenderness to palpation Medical Decision Making Medical Records Medical records reviewed: Yes I reviewed the patient's medical records. Screening: Per USPSTF and CDC recommendations, given the prevalence of disease in our region, it is our hospital?s policy to screen for HIV and viral Hepatitis for all patients aged 18 and over and those with ongoing risk factors. Rojas Inquiry Pt receiving controlled substance: Yes Rojas was queried for this patient: Yes Risks and benefits of using a controlled substance: were discussed with pt by me Vital Signs: 04/07/24 18:12 04/07/24 20:18 04/07/24 20:20 Temperature 98.0 F 98.5 F Temperature Source Oral Oral Pulse Rate 66 66 Pulse Rate [Radial] 68 Respiratory Rate 18 18 Blood Pressure 152/80 H 152/80 H Blood Pressure [Right Arm] 163/87 H Blood Pressure Mean [Right Arm] 112 Blood Pressure Source [Right Arm] Automatic Cuff Blood Pressure Position [Right Arm] Sitting 02 Sat by Pulse Oximetry 96 96 Oxygen Delivery Method Room Air Room Air Lab Data Lab Results 04/07/24 18:33: WBC 10.1, RBC 5.59 H, Hgb 17.1 H, Hct 47.9 H, MCV 85.7, MCH 30.5, MCHC 35.6 H, RDW 13.8, Plt Count 216, MPV 7.9, Neut % (Auto) 86.7 H, Lymph % (Auto) 7.8 L, [place] % (Auto) 3.9, Eos % (Auto) 1.1, Baso % (Auto) 0.5, Neut # (Auto) 8.7 H, Lymph # (Auto) 0.8, [place] # (Auto) 0.4, Eos # (Auto) 0.1, Baso # (Auto) 0.1, Total Counted 100, Neutrophils % (Manual) 95 H, Lymphocytes % (Manual) 4 L, Monocytes % (Manual) 1 L, Platelet Estimate Normal, RBC Morphology Normal, Sodium 138, Potassium 3.0 L, Chloride 100, Carbon Dioxide 28, Anion Gap 13.0, BUN 4 L, Creatinine 0.60, Estimated Creat Clear 57, Estimated GFR 102, Est GFR ( Amer) 123, Glucose 161 H, Calcium 9.3, Magnesium 1.7, Total Bilirubin 0.5, AST 28, ALT 25, Alkaline Phosphatase 161 H, Total Protein 7.7, Albumin 4.6, Globulin 3.1, Albumin/Globulin Ratio 1.5, Lipase 725 H, HIV 1&2 Antibody Rapid Nonreactive 04/07/24 18:33 04/07/24 18:33 Orders (Tests/Meds): ED MEDICATIONS Discontinued Medications Generic Name Dose Route Start Last Admin Trade Name Freq PRN Reason Stop Dose Admin Belladonna Alkaloids 60 ml 04/07/24 18:38 04/07/24 18:48 Belladonna Alkaloids 60 Ml Ml PO 04/07/24 18:39 60 ml ONCE ONE Administration Lactated Ringer's 1,000 mls @ 999 mls/hr 04/07/24 18:38 04/07/24 18:48 Lactated Ringer's 1000 Ml Bag IV 04/07/24 19:38 999 mls/hr .Q1H1M ONE Administration Iopamidol 75 ml 04/07/24 19:30 04/07/24 19:33 Iopamidol-370 (76%);100ml Bottle IV 04/07/24 19:31 75 ml ONCE ONE Administration Morphine Sulfate 4 mg 04/07/24 18:38 04/07/24 18:48 Morphine 4mg/Ml Syringe IV 04/07/24 18:39 4 mg ONCE ONE Administration Ondansetron HCl 4 mg 04/07/24 18:38 04/07/24 18:48 Ondansetron 4mg/2ml Vial IV 04/07/24 18:39 4 mg ONCE ONE Administration Sodium Chloride 10 ml 04/07/24 19:30 04/07/24 19:33 Sodium Chloride 0.9% 10ml Syr (Rad Only) IV 05/07/24 19:29 10 ml NEEDED PRN Administration Maintain IV Site ORDERS Category Date Time Status CT abdomen pelvis w con Stat Cat Scan 04/07/24 18:38 Completed CBC w/Auto Diff [Complete Blood Count Auto Diff] Stat Lab 04/07/24 18:33 Completed CMP [Comprehensive Metabolic Panel] Stat Lab 04/07/24 18:33 Completed HIV (1&2) Antibody Rapid Stat Lab 04/07/24 18:33 Completed Hep C Ab with Reflex to RNA Stat Lab 04/07/24 18:33 Received Lipase Stat Lab 04/07/24 18:33 Completed MAG [Magnesium] Stat Lab 04/07/24 18:33 Completed Medical Decision Narrative: Patient with history and exam per above presenting for evaluation of epigastric abdominal pain Diagnoses considered include pancreatitis, PUD, cholecystitis, cholelithiasis, bowel obstruction, among others ED workup and treatment included: ED MEDICATIONS Discontinued Medications Generic Name Dose Route Start Last Admin Trade Name Freq PRN Reason Stop Dose Admin Belladonna Alkaloids 60 ml 04/07/24 18:38 04/07/24 18:48 Belladonna Alkaloids 60 Ml Ml PO 04/07/24 18:39 60 ml ONCE ONE Administration Lactated Ringer's 1,000 mls @ 999 mls/hr 04/07/24 18:38 04/07/24 18:48 Lactated Ringer's 1000 Ml Bag IV 04/07/24 19:38 999 mls/hr .Q1H1M ONE Administration Iopamidol 75 ml 04/07/24 19:30 04/07/24 19:33 Iopamidol-370 (76%);100ml Bottle IV 04/07/24 19:31 75 ml ONCE ONE Administration Morphine Sulfate 4 mg 04/07/24 18:38 04/07/24 18:48 Morphine 4mg/Ml Syringe IV 04/07/24 18:39 4 mg ONCE ONE Administration Ondansetron HCl 4 mg 04/07/24 18:38 04/07/24 18:48 Ondansetron 4mg/2ml Vial IV 04/07/24 18:39 4 mg ONCE ONE Administration Sodium Chloride 10 ml 04/07/24 19:30 04/07/24 19:33 Sodium Chloride 0.9% 10ml Syr (Rad Only) IV 05/07/24 19:29 10 ml NEEDED PRN Administration Maintain IV Site ORDERS Category Date Time Status CT abdomen pelvis w con Stat Cat Scan 04/07/24 18:38 Completed CBC w/Auto Diff [Complete Blood Count Auto Diff] Stat Lab 04/07/24 18:33 Completed CMP [Comprehensive Metabolic Panel] Stat Lab 04/07/24 18:33 Completed HIV (1&2) Antibody Rapid Stat Lab 04/07/24 18:33 Completed Hep C Ab with Reflex to RNA Stat Lab 04/07/24 18:33 Received Lipase Stat Lab 04/07/24 18:33 Completed MAG [Magnesium] Stat Lab 04/07/24 18:33 Completed Labs were independently interpreted by me, significant for elevated lipase Imaging was independently visualized and interpreted by me, significant for evidence of acute pancreatitis on chronic pancreatitis Please refer to radiology report for full details. My clinical impression at this time is most consistent with pancreatitis. After shared decision making patient is amenable to discharge at this time with outpatient follow-up. Return precautions given. Critical Care Critical Care Time Critical Care Time: No
--- NOTE | 2024-04-07 18:38 | CT_ITS ---
PROCEDURE INFORMATION: Exam: CT Abdomen And Pelvis With Contrast Exam date and time: 04/07/2024 7:30 PM Age: 63 years old Clinical indication: Abdominal pain; Epigastric; Additional info: Epigastric abdominal pain, HX pancreatitis TECHNIQUE: Imaging protocol: Computed tomography of the abdomen and pelvis with contrast. Radiation optimization: All CT scans at this facility use at least one of these dose optimization techniques: automated exposure control; mA and/or kV adjustment per patient size (includes targeted exams where dose is matched to clinical indication); or iterative reconstruction. Contrast material: ISOVUE; Contrast volume: 75 ml; Contrast route: IV; COMPARISON: 1. CT ABDOMEN PELVIS W CON 01/03/2024 11:[address] ABDOMEN PELVIS W CON 10/18/2021 8:[address] ABDOMEN PELVIS W CON 11/11/2020 11:37 AM FINDINGS: Lungs: Scattered areas of bronchial wall thickening which are likely chronic inflammatory. A few areas of subpleural reticulation are noted, nonspecific. Liver: Normal. Gallbladder and biliary ducts: The gallbladder is collapsed and mildly thick-walled, possibly reactive. Pancreas: There are scattered calcifications throughout pancreas compatible with chronic pancreatitis. There is a small amount of stranding and fluid associated with the pancreatic head. Spleen: Normal. Adrenal glands: 1.4 cm hyperdense left adrenal nodule appears stable since at least November 11, 2020. Kidneys and ureters: Simple appearing right renal cyst. Stomach and bowel: There is large volume stool throughout the colon. Appendix: No evidence of appendicitis. Intraperitoneal space: Unremarkable. Vasculature: There is atherosclerotic disease of the visualized aorta and its major branch vessels. Lymph nodes: No lymphadenopathy. Urinary bladder: There is moderate distention of the urinary bladder. Reproductive: The patient has undergone prior hysterectomy. Bones/joints: There is diffuse degenerative disease of the visualized osseous structures. Soft tissues: There is a small fat containing umbilical hernia. IMPRESSION: Changes of chronic pancreatitis with stranding and fluid adjacent to the pancreatic head suggesting an element of superimposed acute pancreatitis. COMMENTS: Consistent with the [place] [employer]'s Incidental Findings Committee white paper (J Am Domenico Radiol 2018): Any incidental renal lesion less than 1 cm or classified as too small to characterize, or any incidental cystic renal lesion characterized as simple-appearing, is likely benign. No follow-up imaging is recommended for these lesions per consensus recommendations based on imaging criteria.
[2024-04-07 18:47] LABS: Basophils # 0.1 K/mm3 (0-0.2); Basophils % 0.5 % (0.1-2.0); Eosinophils # 0.1 K/mm3 (0.0-0.4); Eosinophils % 1.1 % (0.1-12.0); Hematocrit 47.9 % (37.0-47.0); Hemoglobin 17.1 g/dL (12.2-16.2); Lymphocytes # 0.8 K/mm3 (0.7-4.5); Lymphocytes % 7.8 % (10-50); Mean Corpuscular HGB Conc 35.6 g/dL (31.8-35.4); Mean Corpuscular Hemoglobin 30.5 pg (27.0-31.2); Mean Corpuscular Volume 85.7 fl (81-99); Mean Platelet Volume 7.9 fl (7.4-10.4); Monocytes # 0.4 K/mm3 (0.1-1.0); Monocytes % 3.9 % (1.7-9.3); Neutrophils # 8.7 K/mm3 (1.8-7.8); Neutrophils % 86.7 % (37.0-80.0); Platelet Count 216 K/mm3 (142-424); Red Blood Count 5.59 M/mm3 (4.20-5.40); Red Cell Distribution Width 13.8 % (11.5-17.5); White Blood Count 10.1 K/mm3 (4.8-10.8)
[2024-04-07] MEDS: ONDANSETRON 4MG/2ML VIAL 4 MG IV (18:48)
[2024-04-07] MEDS: LACTATED RINGERS 1000ML 1,000 ML 999 ML IV (18:48)
[2024-04-07] MEDS: MORPHINE 4MG/ML SYRINGE 4 MG IV (18:48)
[2024-04-07] MEDS: BELLADONNA ALKALOIDS 60 ML ML PO (18:48)
[2024-04-07 18:52] LABS: MANUAL DIFFERENTIAL MANUAL DIFFERENTIAL (MANUAL DIFF)
[2024-04-07 18:53] LABS: Albumin Level 4.6 g/dl (3.5-5.0); Chloride 100 mmol/L (98-107); Sodium 138 mmol/L (136-145)
[2024-04-07 18:56] LABS: Alanine Aminotransferase 25 U/L (12-78); Albumin/Globulin Ratio 1.5 (1.1-1.8); Alkaline Phosphatase 161 U/L (38-126); Aspartate Amino Transferase 28 U/L (14-36); Bilirubin,Total 0.5 mg/dl (0.2-1.3); Blood Urea Nitrogen 4 mg/dl (7-17); Carbon Dioxide 28 mmol/L (22.0-30.0); Creatinine Clearance Estimated 57 mL/min (50-200); Estimated Glomerular Filt Rate 102 ml/min (>60); GFR (African American) 123 ML/MIN (>60); Globulin 3.1 g/dL (1.3-3.2); Total Protein,Serum 7.7 g/dl (6.3-8.2)
[2024-04-07 18:57] LABS: Calcium 9.3 mg/dl (8.4-10.2); Glucose 161 mg/dl (74-100); Magnesium 1.7 mg/dl (1.6-2.3)
[2024-04-07 19:05] LABS: Lipase 725 U/L (23-300)
--- NOTE | 2024-04-07 19:11 | PC.NURSE ---
Dr. Carlos notified of K+ 3.0.
[2024-04-07] MEDS: IOPAMIDOL-370 (76%);100ML BOTTLE 75 ML IV (19:33)
[2024-04-07] MEDS: SODIUM CHLORIDE 0.9% 10ML SYR (RAD ONLY) 10 ML IV (19:33)
[2024-04-07 20:15] LABS: Lymphocytes % 4 % (10-50); Monocytes % 1 % (2-9); Neutrophils % 95 % (42-76); Platelet Estimate Normal; RBC Morphology Normal; Total Cells Counted 100
[2024-04-07 20:18] VITALS: BP 152/80; PULSE 66; RESP 18; TEMP 36.9; O2SAT 96
[2024-04-07 20:20] VITALS: BP 152/80; PULSE 66; O2SAT 96
[2024-04-07 22:14] LABS: HIV (1&2) Antibody Rapid NONREACTIVE (NONREACTIVE)
[2024-04-09 08:22] LABS: HCV Ab Non Reactive (Non Reactive)
== END 2024-04-07 20:25 | disposition home or self-care (01) ==
PROVIDERS: Emergency Provider Emergency Medicine; PCP Nurse Practitioner Family
DX: K85.90 Acute pancreatitis without necrosis or infection, unspecified (principal); R10.13 Epigastric pain; R11.0 Nausea
CPT/HCPCS: 74177; 80053; 83690; 83735; 85007; 85025; 85027; 86803; 87389; 96361; 96374; 96375; 99285; J2270; J2405; J7120; Q9967

== ENCOUNTER 2024-08-27 11:34 | Observation (INO) | payer OTHER, SELFPAY ==
[2024-08-27] VITALS (11 sets, daily range): BP systolic 114–148; BP diastolic 67–130; PULSE 58–83; RESP 13–18; TEMP 36.2–37.1; O2SAT 92–99; BMI 20.6
--- NOTE | 2024-08-27 11:59 | ECG_ITS ---
APPROVED REPORT Exam: Resting ECG HR:69 bpm ECG Measurements Heart Rate 69 AXES AR 168 P 69 QRSd 108 QRS -50 QT 293 T 89 QTc 312 Conclusion SINUS RHYTHM LEFT ANTERIOR FASCICULAR BLOCK [QRS AXIS <= -45, QR IN I, RS IN II] NONSPECIFIC ST & T-WAVE ABNORMALITY No STEMI Electronically signed by : ARMINDA RAHMAN, 08/27/2024 15:20:19
[2024-08-27 12:10] LABS: Microscopic, Urine URINE MICROSCOPIC (MICROSCOPIC)
--- NOTE | 2024-08-27 12:10 | HMH.EDGENADL ---
Discharge Plan Disposition Patient Disposition: Admitted Clinical Impressions Clinical Impression: Diarrhea, Hypokalemia, UTI (urinary tract infection), General weakness Discharge ED Provider: Zakia Johnson General Adult HPI General Chief complaint: Abdominal Pain Stated complaint: stomach pain, diarrhea, dry heaves Time Seen by Provider: 08/27/24 11:49 Mode of Arrival: Ambulatory Source of Information: Significant Other Limitations: No Limitations Description of Symptoms (Recalled from ER Triage Doc. by RN): Pt presents with c/o abdominal pain since friday that is accompanied with n/v/d. Pt states pain is intermittent in nature and when the pain does occur pt states pain is a 5/10. Pt states she has had a decreased appetite because of it. Pt has a hx of pancreatitis. History of Present Illness HPI narrative: This patient is a 63-year-old female with a history of pancreatitis status post sphincterotomy presenting to the emergency department for evaluation with concern for generalized abdominal pain, nausea, vomiting, and diarrhea that started on Friday. Patient states that the pain is intermittent in nature. She notes that initially felt like her prior bout of pancreatitis, but now feels different. She states she had had so much diarrhea but now that is stopped because she is not able to keep anything down. She has had nausea and vomiting to the point where she cannot even tolerate putting her dentures in, as she gags very frequently if she tries to put them in and into vomiting again. Emesis is nonbloody nonbilious. Diarrhea is nonbloody. Abdominal pain does radiate around to her back. no fevers, chills, chest pain, shortness of breath, or other concerns Related Data Home Medications ?Medication ?Instructions ?Recorded ?Confirmed atorvastatin 40 mg tablet 40 mg PO HS 11/04/17 08/27/24 bisoprolol fumarate 10 mg tablet 10 mg PO HS High blood pressure 04/27/18 08/27/24 lisinopril 20 mg tablet 20 mg PO DAILY 11/12/20 08/27/24 amlodipine 5 mg tablet 5 mg PO DAILY 10/18/21 08/27/24 diazepam 2 mg tablet (Valium) 2 mg PO HSP PRN anxiety 08/27/24 08/27/24 omeprazole 20 mg capsule,delayed 20 mg PO DAILY 08/27/24 08/27/24 release Previous Rx's ?Medication ?Instructions ?Recorded trazodone 150 mg tablet 150 mg PO HS sleep 90 days #90 tabs 03/17/24 venlafaxine 75 mg capsule,extended 75 mg PO DAILY #90 caps 05/20/24 release 24 hr (Effexor XR) Allergies Allergy/AdvReac Type Severity Reaction Status Date / Time No Known Allergies Allergy Verified 08/27/24 12:10 [facility] Disclaimer: The information contained in this section may have been updated after the patient was seen, as this information can be updated by other users. Medical History Insomnia Major depressive disorder Generalized anxiety disorder Anxiety Social History Smoking Status: Current every day smoker tobacco type: cigarettes packs per day: 1 second hand exposure: Yes alcohol intake: never substance use type: prescription drug current occupational status: other Travel in the last 8 weeks: None household members: spouse housing: house number of children: 2 current occupational exposures/hazards: No caffeine: Yes Have you lived/traveled outside US in past 30 days?: No Contact w/someone who lives/traveled outside US past 30 days?: No Exposure to someone with infectious disease in past 14 days?: No Do you have a fever (greater than 100.4 F or 38 C)?: No Have you tested positive for COVID-19: No Exposed to someone with COVID-19 in past 14 days?: No Do you have a sore throat?: No Do you have a cough?: No Do you have any weakness?: No Do you have any diarrhea?: Yes Are you experiencing any unusual bleeding?: No Do you have any muscle aches/pain?: No Do you have any abdominal pain?: Yes Are you experiencing loss of taste or smell?: No Other Medical History Have you received the Flu Vaccine for this season: Yes Have you received the Pneumonia Vaccine: No ROS Obtained: Yes All systems reviewed & no additional complaints except as documented Physical Exam General General appearance: alert and in no apparent distress Head Head exam: atraumatic and normocephalic Eye Eye exam: Present normal appearance, PERRL and EOMI ENT ENT exam: Present normal exam, normal oropharynx, mucous membranes moist and normal external ear exam Neck Neck exam: Present normal inspection, full ROM and trachea midline; Absent tenderness Chest Chest inspection: Present normal inspection and symmetric chest wall rise; Absent tenderness Respiratory Respiratory exam: Present normal lung sounds bilaterally; Absent respiratory distress, wheezes, stridor or accessory muscle use Cardiovascular Cardiovascular exam: Present regular rate and normal rhythm Abdominal Exam Abdominal exam: Present soft and tenderness (Generalized); Absent distention or guarding Extremities Exam Extremities exam: Present normal inspection, full ROM and normal capillary refill; Absent tenderness or edema Back Exam Back exam: Present normal inspection and full ROM; Absent tenderness Neurological Exam Neurological exam: Present alert, oriented X3, CN II-XII intact and normal gait; Absent motor sensory deficit Psychiatric Psychiatric exam: Present normal affect and normal mood Skin Skin exam: Present warm and dry Medical Decision Making Medical Records Medical records reviewed: Yes I reviewed the patient's medical records. Screening: Per USPSTF and CDC recommendations, given the prevalence of disease in our region, it is our hospital?s policy to screen for HIV and viral Hepatitis for all patients aged 18 and over and those with ongoing risk factors. [place] Inquiry Pt receiving controlled substance: No Vital Signs: 08/27/24 11:42 08/27/24 11:55 08/27/24 12:04 Temperature 98.7 F Temperature Source Oral Pulse Rate 77 71 Pulse Rate [Right] 81 Respiratory Rate 18 Blood Pressure 148/130 H 131/82 Blood Pressure [Right Arm] 122/80 Blood Pressure Mean 134 98 Blood Pressure Mean [Right Arm] 94 Blood Pressure Source [Right Arm] Automatic Cuff Blood Pressure Position [Right Arm] Sitting 02 Sat by Pulse Oximetry 98 99 99 Oxygen Delivery Method Room Air Room Air Room Air 08/27/24 12:30 08/27/24 13:00 08/27/24 13:30 Temperature Temperature Source Pulse Rate 70 63 61 Pulse Rate [Right] Respiratory Rate 15 Blood Pressure 117/69 123/71 136/77 Blood Pressure [Right Arm] Blood Pressure Mean Blood Pressure Mean [Right Arm] Blood Pressure Source [Right Arm] Blood Pressure Position [Right Arm] 02 Sat by Pulse Oximetry 92 L 92 L 96 Oxygen Delivery Method Room Air Room Air 08/27/24 14:00 08/27/24 14:30 Temperature Temperature Source Pulse Rate 62 58 L Pulse Rate [Right] Respiratory Rate 16 13 Blood Pressure 122/75 114/78 Blood Pressure [Right Arm] Blood Pressure Mean Blood Pressure Mean [Right Arm] Blood Pressure Source [Right Arm] Blood Pressure Position [Right Arm] 02 Sat by Pulse Oximetry 97 92 L Oxygen Delivery Method Room Air Room Air Lab Data Lab results reviewed: Yes I reviewed the patient's lab results. Lab Results 08/27/24 12:00: WBC 5.4, RBC 5.18, Hgb 14.6, Hct 41.9, MCV 80.9 L, MCH 28.2, MCHC 34.8, RDW 11.5, Plt Count 220, MPV 9.7, Neut % (Auto) 82.2 H, Lymph % (Auto) 10.2, [place] % (Auto) 5.9, Eos % (Auto) 0.6, Baso % (Auto) 0.7, Neut # (Auto) 4.4, Lymph # (Auto) 0.6 L, [place] # (Auto) 0.3, Eos # (Auto) 0.0, Baso # (Auto) 0.0, Sodium 134 L, Potassium 2.6 L*, Chloride 94 L, Carbon Dioxide 37 H, Anion Gap 5.6, BUN 8, Creatinine 0.70, Estimated Creat Clear 53, Estimated GFR 85, Est GFR ( Amer) 103, Glucose 156 H, Lactate 3.1 H, Calcium 8.5, Phosphorus 3.0, Magnesium 1.7, Total Bilirubin 0.8, AST 25, ALT 26, Alkaline Phosphatase 169 H, Troponin I < 0.01, Total Protein 6.7, Albumin 3.9, Globulin 2.8, Albumin/Globulin Ratio 1.4, Lipase 92, Urine Color Yellow, Urine Appearance Clear, Urine pH 6.5, Ur Specific [place] 1.025, Urine Protein 1+ A, Urine Glucose (UA) Negative, Urine Ketones Negative, Urine Blood Trace-i, Urine Nitrate Positive A, Urine Bilirubin 1+ A, Urine Urobilinogen 1.0, Ur Leukocyte Esterase 2+ A, Urine RBC None, Urine WBC 20-50, Ur Squamous Epith Cells Occasional 08/27/24 12:00 08/27/24 12:00 Orders (Tests/Meds): ED MEDICATIONS Generic Name Dose Route Start Last Admin Trade Name Freq PRN Reason Stop Dose Admin Promethazine HCl 12.5 mg 08/27/24 15:11 Promethazine Hcl 25mg/Ml 1ml Vial IV 08/27/24 15:12 ONCE ONE Sodium Chloride 8 ml 08/27/24 12:13 Sodium Chloride 0.9% 10ml Vial IV 09/26/24 12:12 NEEDED PRN dilute pepcid Sodium Chloride 10 ml 08/27/24 13:10 08/27/24 13:11 Sodium Chloride 0.9% 10ml Syr (Rad Only) IV 09/26/24 13:09 10 ml NEEDED PRN Administration Maintain IV Site Sodium Chloride 25 ml 08/27/24 15:10 Sodium Chloride 0.9% 25ml Bag IV 09/26/24 15:09 NEEDED PRN for Use with IV Promethazine Discontinued Medications Generic Name Dose Route Start Last Admin Trade Name Freq PRN Reason Stop Dose Admin Acetaminophen 1,000 mg 08/27/24 12:13 08/27/24 12:17 Acetaminophen 1,000mg/100ml Vial IV 08/27/24 12:14 1,000 mg ONCE ONE Administration Famotidine 20 mg 08/27/24 12:13 08/27/24 12:17 Famotidine 20mg/2ml Vial IV 08/27/24 12:14 20 mg ONCE ONE Administration Lactated Ringer's 1,000 mls @ 999 mls/hr 08/27/24 13:07 08/27/24 13:28 Lactated Ringer's 1000 Ml Bag IV 08/27/24 14:07 999 mls/hr .Q1H1M ONE Administration Potassium Chloride/Water 100 mls @ 100 mls/hr 08/27/24 13:07 08/27/24 14:50 Potassium Chloride 10meq/100ml Ivpb IV 08/27/24 15:06 100 mls/hr Q1H RACHAEL Administration Ceftriaxone Sodium 2 gm/ 100 mls @ 200 mls/hr 08/27/24 13:42 08/27/24 14:29 Sodium Chloride IV 08/27/24 14:11 200 mls/hr ONCE ONE Administration Iopamidol 75 ml 08/27/24 13:10 08/27/24 13:11 Iopamidol-370 (76%);100ml Bottle IV 08/27/24 13:11 75 ml ONCE ONE Administration Ketorolac Tromethamine 15 mg 08/27/24 12:13 08/27/24 12:17 Ketorolac 30mg/Ml Vial IV 08/27/24 12:14 15 mg ONCE ONE Administration Ondansetron HCl 4 mg 08/27/24 12:13 08/27/24 12:17 Ondansetron 4mg/2ml Vial IV 08/27/24 12:14 4 mg ONCE ONE Administration Potassium Chloride 40 meq 08/27/24 13:07 08/27/24 13:28 Potassium Chloride 20meq Tab PO 08/27/24 13:08 40 meq ONCE ONE Administration Sodium Chloride 50 ml 08/27/24 13:10 08/27/24 13:11 0.9 % Sodium Chloride 50 Ml Vial IV 08/27/24 13:11 50 ml ONCE ONE Administration ORDERS Category Date Time Status CT abdomen pelvis w con Stat Cat Scan 08/27/24 12:26 Completed Complete Blood Count Auto Diff Stat Lab 08/27/24 12:00 Completed Comprehensive Metabolic Panel Stat Lab 08/27/24 12:00 Completed Diarrhea 23 Panel, PCR Stat Lab 08/27/24 11:50 Ordered Lactic Acid Stat Lab 08/27/24 12:00 Completed Lipase Stat Lab 08/27/24 12:00 Completed MAG [Magnesium] Stat Lab 08/27/24 12:00 Completed PHOS [Phosphorous] Stat Lab 08/27/24 12:00 Completed Trop I [Troponin I] Stat Lab 08/27/24 12:00 Completed Troponin I Q3H Lab 08/27/24 15:00 Received Troponin I Q3H Lab 08/27/24 18:00 Ordered Urinalysis and Microscopic Stat Lab 08/27/24 12:00 Completed Blood Culture Stat Micro 08/27/24 14:09 Received Urine Culture Stat Micro 08/27/24 12:00 Received ECG Data Tracing #1: I reviewed this ECG and interpreted as documented below: Normal sinus rhythm with a ventricular rate of [address]/T wave changes without acute STEMI. Left anterior fascicular block. Some motion artifact ECG initial impression date: 08/27/24 ECG initial impression time: 12:03 Medical Decision Narrative: In summary, this patient is a 63-year-old female presenting to the Emergency Department for evaluation of abdominal pain, nausea, vomiting, and diarrhea since Friday. Differential diagnoses considered include but are not limited to pancreatitis, gastroenteritis, colitis, dehydration, electrolyte derangement, BETTY, urinary tract infection, ACS, viral syndrome. Ruling out the most morbid conditions drove assessment. It should be noted patient's history includes hypertension, prior bout of pancreatitis, hypertensive heart disease, tobacco dependence which are not at goal therapy. This complicates all aspects of care by increasing patient's risk for morbidity. I reviewed patient's past medical records and noted previous evaluation with pancreatitis back in March. On exam, the patient is lying in bed in no acute distress with reassuring vital signs and cardiac telemetry. She has generalized abdominal tenderness but no rebound or guarding. She is nontoxic-appearing. Workup included CBC, CMP, lipase, lactic acid, troponin, EKG. patient was given a bolus of IV fluids as well as IV Toradol, acetaminophen, Pepcid, and Zofran for symptomatic improvement. EKG obtained demonstrates nonspecific changes without acute STEMI. I independently interpreted CT scan prior to the radiologist read and noted bladder wall thickening. Please see their read for final interpretation. Labs were obtained that demonstrated significant hypokalemia for which IV and oral replacement were ordered as well as IV fluids. I suspect this is likely to volume losses related to the vomiting and diarrhea. Urine is concerning for infection, so IV Rocephin was ordered. She does not have any significant leukocytosis or significant vital sign abnormalities that would suggest sepsis, but blood cultures were sent just in case prior to Rocephin. On reassessment, she had continued vomiting requiring Phenergan. She remained stable on cardiac telemetry with normal vitals during administration of IV potassium. For her significant lactate derangements, UTI, and consistent losses I feel she would benefit from admission for continued monitoring and electrolyte repletion. I had an indirect discussion with the hospitalist who admitted the patient in stable condition. Critical Care Critical Care Time Critical Care Time: Yes Attestation: On 08/27/24, the high probability of a clinically significant, sudden or life threatening deterioration of the following system(s) required my full and direct attention, intervention and personal management. The time I documented below is in addition to time spent performing reported procedures but includes the following listed in this critical care notation. Total Time Total Critical Care Time: 30
[2024-08-27 12:11] LABS: Appearance,Urine CLEAR (Clear); Basophils % 0.7 % (0.1-2.0); Blood, Urine TRACE-I (Negative); Color,Urine YELLOW (Yellow); Eosinophils % 0.6 % (0.1-12.0); Glucose,Urine (UA) Negative (Negative); Hematocrit 41.9 % (37.0-47.0); Hemoglobin 14.6 g/dL (12.2-16.2); Ketones,Urine Negative (Negative); Leukocyte Esterase,Urine 2+ (Negative); Lymphocytes # 0.6 K/mm3 (0.7-4.5); Lymphocytes % 10.2 % (10-50); Mean Corpuscular HGB Conc 34.8 g/dL (31.8-35.4); Mean Corpuscular Hemoglobin 28.2 pg (27.0-31.2); Mean Corpuscular Volume 80.9 fl (81-99); Mean Platelet Volume 9.7 fl (7.4-10.4); Monocytes # 0.3 K/mm3 (0.1-1.0); Monocytes % 5.9 % (1.7-9.3); Neutrophils # 4.4 K/mm3 (1.8-7.8); Neutrophils % 82.2 % (37.0-80.0); Nitrate,Urine POSITIVE (Negative); PH,Urine 6.5 (5.0-8.5); Platelet Count 220 K/mm3 (142-424); Protein,Urine 1+ (Negative); Red Blood Count 5.18 M/mm3 (4.20-5.40); Red Cell Distribution Width 11.5 % (11.5-17.5); Specific Gravity, Urine 1.025 (1.005-1.030); White Blood Count 5.4 K/mm3 (4.8-10.8)
[2024-08-27] MEDS: ACETAMINOPHEN 1,000MG/100ML VIAL 1000 MG IV (12:17)
[2024-08-27] MEDS: ONDANSETRON 4MG/2ML VIAL 4 MG IV ×2 (12:17→18:18)
[2024-08-27] MEDS: FAMOTIDINE 20MG/2ML VIAL 20 MG IV (12:17)
[2024-08-27] MEDS: KETOROLAC 30MG/ML VIAL 15 MG IV (12:17)
--- NOTE | 2024-08-27 12:26 | CT_ITS ---
FINAL REPORT TECHNIQUE: IV contrast enhanced exam This study was performed with techniques to keep radiation doses as low as reasonably achievable, (ALARA). Individualized dose reduction techniques using automated exposure control or adjustment of mA and/or kV according to the patient''s size were employed. CLINICAL HISTORY: gen abd pain/n/v/ivy COMPARISON: 04/07/2024 FINDINGS: Abdomen: No acute density is seen within the lung bases. There is severe fatty infiltration of the liver. There is borderline splenomegaly, mildly increased since prior. Left adrenal nodule is stable and nonspecific, probably an adenoma. The remaining abdominal organs are unremarkable. No bowel obstruction is present. There is no free air. No fluid collection is seen. There is no adenopathy. Pelvis: The appendix is not identified. There is no inflammatory process. Patient is status post hysterectomy. There is bladder wall thickening, could be due to poor distention or cystitis. No bowel wall thickening is present. There is no free fluid. No pelvic mass is seen. IMPRESSION: No changes of pancreatitis or acute abdominal process. Bladder wall thickening which could indicate distention or cystitis. Reviewed, Interpreted and Dictated by Liam Max MD Transcribed by Carmita Wharton Authenticated and . [facility]
[2024-08-27 12:41] LABS: Anion Gap 5.6 mEq/L (5-15); Blood Urea Nitrogen 8 mg/dl (7-17); Carbon Dioxide 37 mmol/L (22.0-30.0); Chloride 94 mmol/L (98-107); Creatinine Clearance Estimated 53 mL/min (50-200); Estimated Glomerular Filt Rate 85 ml/min (>60); Sodium 134 mmol/L (136-145)
[2024-08-27 12:42] LABS: Alanine Aminotransferase 26 U/L (12-78); Albumin Level 3.9 g/dl (3.5-5.0); Albumin/Globulin Ratio 1.4 (1.1-1.8); Alkaline Phosphatase 169 U/L (38-126); Aspartate Amino Transferase 25 U/L (14-36); Bilirubin,Total 0.8 mg/dl (0.2-1.3); Bilirubin,Urine 1+ (Negative); Calcium 8.5 mg/dl (8.4-10.2); GFR (African American) 103 ML/MIN (>60); Globulin 2.8 g/dL (1.3-3.2); Glucose 156 mg/dl (74-100); Lipase 92 U/L (23-300); Total Protein,Serum 6.7 g/dl (6.3-8.2)
[2024-08-27 12:47] LABS: Squamous Epithelial Cell,Urine Occasional #/hpf (0-5); WBC,Urine 20-50 #/hpf (0-3)
[2024-08-27 12:55] LABS: Lactic Acid 3.1 mmol/L (0.7-2.1); Troponin I < 0.01 ng/ml (0.00-0.034)
[2024-08-27 12:56] LABS: Potassium 2.6 mmoL/L (3.5-5.1)
--- NOTE | 2024-08-27 13:07 | PC.NURSE ---
patient gone to CT at this time.
[2024-08-27] MEDS: 0.9 % SODIUM CHLORIDE 50 ML VIAL IV (13:11)
[2024-08-27] MEDS: IOPAMIDOL-370 (76%);100ML BOTTLE 75 ML IV (13:11)
[2024-08-27] MEDS: SODIUM CHLORIDE 0.9% 10ML SYR (RAD ONLY) 10 ML IV (13:11)
--- NOTE | 2024-08-27 13:14 | PC.NURSE ---
PT ARRIVED BACK TO ROOM FROM CT
[2024-08-27] MEDS: KCl 10mEq/100ml 100 ML 100 MEQ IV ×2 (13:27→14:50)
[2024-08-27] MEDS: POTASSIUM CHLORIDE 20MEQ TAB 40 MEQ PO (13:28)
[2024-08-27] MEDS: LACTATED RINGERS 1000ML 1,000 ML 999 ML IV (13:28)
--- NOTE | 2024-08-27 13:28 | PC.NURSE ---
PT MEDICATED PER EMAR, UPDATED ON POC. NO NEEDS AT THIS TIME. CALL LIGHT WITHIN REACH. WARM BLANKET PROVIDED. DAUGHTER AT BEDSIDE
--- NOTE | 2024-08-27 14:05 | PC.NURSE ---
DR RAHMAN AT BEDSIDE TO UPDATE PT
[2024-08-27 14:21] LABS: Magnesium 1.7 mg/dl (1.6-2.3)
[2024-08-27] MEDS: CEFTRIAXONE SODIUM 2 GM in 0.9 % SODIUM CHLORIDE 100 ML IV (14:29)
--- NOTE | 2024-08-27 14:29 | PC.NURSE ---
PT MEDICATED PER EMAR, UPDATED ON POC. FAMILY AT BEDSIDE. QUESTIONS ENCOURAGED AND ANSWERED. NO NEEDS AT THIS TIME. CALL LIGHT WITHIN REACH
--- NOTE | 2024-08-27 14:33 | PC.NURSE ---
TARIFF EXPERT NOTIFIED OF ADMISSION
--- NOTE | 2024-08-27 14:46 | HMH.PHAINT1 ---
Pharmacy Intervention Comments: MEDICATION RECONCILIATION COMPLETED ON PATIENT USING EXTERNAL FILL HISTORY FROM PHARMACY. -NATALIA GORDON, LILIAND
--- NOTE | 2024-08-27 14:48 | PC.NURSE ---
I rounded on the pt. no new complaints at this time. no needs voiced. call florian in reach.
--- NOTE | 2024-08-27 14:50 | PC.NURSE ---
REPORT CALLED TO CARINA FLORENCE
--- NOTE | 2024-08-27 15:13 | PC.NURSE ---
arrived by w/c from ED
[2024-08-27 15:52] LABS: Troponin I < 0.01 ng/ml (0.00-0.034)
[2024-08-27 16:08] LABS: Reflex Lactic Add Lactic Reflex
[2024-08-27 17:03] LABS: Lactic Acid Follow Up (RFLX 1) 1.3 mmol/L (0.7-2.1)
--- NOTE | 2024-08-27 17:07 | EXP.HP ---
History of Present Illness *Admission Date: 08/27/24 *Reason for visit:: Nausea/vomiting/diarrhea *History of present illness: Michelle Harley is a 63-year-old female with a medical history of hypertension, anxiety/depression, GERD who presents with nausea/vomiting/diarrhea and generalized weakness. She states she is been having diarrhea for the past 4 days, including decreased appetite, nausea/vomiting. She denies fever/chills, upper respiratory symptoms, chest pain, shortness of breath, recent sick contacts. Workup in this ED significant for potassium 2.6, UA strongly suggestive of UTI. Case discussed with ED provider and decision was made to admit patient for decreased oral tolerance, hypokalemia. [facility] Disclaimer: The information contained in this section may have been updated after the patient was seen, as this information can be updated by other users. Medical History Insomnia Major depressive disorder Generalized anxiety disorder Anxiety Family History (Updated 08/27/24 @ 15:47 by Jb Blunt RN) Other Colon cancer Social History (Updated 08/27/24 @ 15:48 by Jb Blunt RN) Smoking Status: Current every day smoker tobacco type: cigarettes packs per day: 1 second hand exposure: Yes alcohol intake: never substance use type: prescription drug current occupational status: other Travel in the last 8 weeks: None household members: spouse housing: house number of children: 2 current occupational exposures/hazards: No caffeine: Yes Have you lived/traveled outside US in past 30 days?: No Contact w/someone who lives/traveled outside US past 30 days?: No Exposure to someone with infectious disease in past 14 days?: No Do you have a fever (greater than 100.4 F or 38 C)?: No Have you tested positive for COVID-19: No Exposed to someone with COVID-19 in past 14 days?: No Do you have a sore throat?: No Do you have a cough?: No Do you have any weakness?: No Do you have any diarrhea?: Yes Are you experiencing any unusual bleeding?: No Do you have any muscle aches/pain?: No Do you have any abdominal pain?: Yes Are you experiencing loss of taste or smell?: No Other Medical History Have you received the Flu Vaccine for this season: No Have you received the Pneumonia Vaccine: No Meds Home Medications and Allergies Home Medications ?Medication ?Instructions ?Recorded ?Confirmed ?Type atorvastatin 40 mg tablet 40 mg PO HS 11/04/17 08/27/24 History bisoprolol fumarate 10 mg tablet 10 mg PO HS High blood pressure 04/27/18 08/27/24 History lisinopril 20 mg tablet 20 mg PO DAILY 11/12/20 08/27/24 History amlodipine 5 mg tablet 5 mg PO DAILY 10/18/21 08/27/24 History trazodone 150 mg tablet 150 mg PO HS sleep 90 days #90 tabs 03/17/24 08/27/24 Rx venlafaxine 75 mg capsule,extended 75 mg PO DAILY #90 caps 05/20/24 08/27/24 Rx release 24 hr (Effexor XR) diazepam 2 mg tablet (Valium) 2 mg PO HSP PRN anxiety 08/27/24 08/27/24 History omeprazole 20 mg capsule,delayed 20 mg PO DAILY 08/27/24 08/27/24 History release New Prescriptions to Start Prescriptions: Allergies Allergy/AdvReac Type Severity Reaction Status Date / Time No Known Allergies Allergy Verified 08/27/24 12:10 Exam Data for Last 24 hours Vital signs and Labs for Last 24 Hours: Temp Pulse Resp BP Pulse Ox O2 Del Method 98.6 F 58 L 18 114/78 92 L Room Air 08/27/24 14:50 08/27/24 14:50 08/27/24 14:50 08/27/24 14:50 08/27/24 14:30 08/27/24 16:23 Laboratory Results - last 24 hr 08/27/24 12:00: WBC 5.4, RBC 5.18, Hgb 14.6, Hct 41.9, MCV 80.9 L, MCH 28.2, MCHC 34.8, RDW 11.5, Plt Count 220, MPV 9.7, Neut % (Auto) 82.2 H, Lymph % (Auto) 10.2, [place] % (Auto) 5.9, Eos % (Auto) 0.6, Baso % (Auto) 0.7, Neut # (Auto) 4.4, Lymph # (Auto) 0.6 L, [place] # (Auto) 0.3, Eos # (Auto) 0.0, Baso # (Auto) 0.0, Sodium 134 L, Potassium 2.6 L*, Chloride 94 L, Carbon Dioxide 37 H, Anion Gap 5.6, BUN 8, Creatinine 0.70, Estimated Creat Clear 53, Estimated GFR 85, Est GFR ( Amer) 103, Glucose 156 H, Lactate 3.1 H, Calcium 8.5, Phosphorus 3.0, Magnesium 1.7, Total Bilirubin 0.8, AST 25, ALT 26, Alkaline Phosphatase 169 H, Troponin I < 0.01, Total Protein 6.7, Albumin 3.9, Globulin 2.8, Albumin/Globulin Ratio 1.4, Lipase 92, Urine Color Yellow, Urine Appearance Clear, Urine pH 6.5, Ur Specific [place] 1.025, Urine Protein 1+ A, Urine Glucose (UA) Negative, Urine Ketones Negative, Urine Blood Trace-i, Urine Nitrate Positive A, Urine Bilirubin 1+ A, Urine Urobilinogen 1.0, Ur Leukocyte Esterase 2+ A, Urine RBC None, Urine WBC 20-50, Ur Squamous Epith Cells Occasional 08/27/24 15:00: Troponin I < 0.01 08/27/24 16:20: Lactate 1.3 I & O for Last 24 hours: Intake & Output 08/24/24 08/25/24 08/26/24 08/27/24 23:59 23:59 23:59 23:59 Weight 56.336 kg Constitutional Constitutional: no acute distress *Routine HEENT Exam Head: Present normocephalic Eye: Present EOMI and PERRL ENT: Present mucous membranes moist *Routine Neck Exam Neck: Present supple; Absent lymphadenopathy *Routine Respiratory Exam Respiratory: Present CTA bilaterally *Routine Cardiovascular Exam Cardiovascular: Present RRR *Routine Abdominal Exam Abdominal: Present soft and normoactive bowel sounds; Absent tenderness *Routine Rectal Exam Rectal:: deferred *Routine Genitalia Exam Genitalia:: deferred *Routine Extremities Exam Extremities: Absent cyanosis, clubbing or edema *Routine Skin Exam Skin: Present warm; Absent rash *Routine Neurological Exam Neurological: Present alert and oriented X3 Assessment and Plan *Assessment and plan (1) UTI (urinary tract infection): Status: Acute Category: Medical Code(s): N39.0 - Urinary tract infection, site not specified (2) Hypokalemia: Status: Acute Category: Medical Code(s): E87.6 - Hypokalemia Plan Michelle Harley is a 63-year-old female with a medical history of hypertension, anxiety/depression, GERD who presents with nausea/vomiting/diarrhea and generalized weakness. She states she is been having diarrhea for the past 4 days, including decreased appetite, nausea/vomiting. She denies fever/chills, upper respiratory symptoms, chest pain, shortness of breath, recent sick contacts. Workup in this ED significant for potassium 2.6, UA strongly suggestive of UTI. Case discussed with ED provider and decision was made to admit patient for decreased oral tolerance, hypokalemia. #Suspected gastroenteritis #Nausea/vomiting/diarrhea #Hypokalemia ? Symptomatic for the past 4 days. ? Follow-up diarrhea panel. ? Initial potassium 2.6, received for a total of 80 mEq in the ED. ? Follow-up morning CMP. ? Zofran as needed for nausea. #UTI ? UA grossly abnormal, urine culture pending. ? Ceftriaxone day 07/04. #Hypertension ? BP stable, with nausea/vomiting. Hold BP meds for now. #Anxiety/depression ? Resume home #GERD ? Resume home PPI. Full code DVT prophylaxis: Lovenox 40 mg
[2024-08-27] MEDS: 0.9 % SODIUM CHLORIDE 1000ML 1,000 ML 75 ML IV (17:25)
[2024-08-27 19:06] LABS: Troponin I < 0.01 ng/ml (0.00-0.034)
[2024-08-27] MEDS: TRAZODONE 50MG TABLET 150 MG PO (20:06)
[2024-08-27] MEDS: PANTOPRAZOLE 40MG TABLET 40 MG PO (20:07)
[2024-08-28 04:00] VITALS: BP 124/68; PULSE 71; RESP 16; TEMP 36.9; O2SAT 92; BMI 21.2
--- NOTE | 2024-08-28 04:53 | PC.NURSE ---
Pt. is alert and orientated x 4. Pt. is on room air. Pt. getting IV fluids Pt. denies any nausea, vomiting this shift. Pt. has had no stool output since being admitted. Pt. is up to bathroom with standby assist. Pt. sleeping thought the night. VSS. Personal items and call florian in reach.
[2024-08-28] MEDS: 0.9 % SODIUM CHLORIDE 1000ML 1,000 ML 75 ML IV (06:14)
[2024-08-28 07:39] LABS: Basophils % 0.6 % (0.1-2.0); Eosinophils # 0.1 K/mm3 (0.0-0.4); Eosinophils % 1.9 % (0.1-12.0); Hematocrit 33.2 % (37.0-47.0); Lymphocytes # 0.6 K/mm3 (0.7-4.5); Mean Corpuscular HGB Conc 34.9 g/dL (31.8-35.4); Mean Corpuscular Hemoglobin 28.2 pg (27.0-31.2); Mean Corpuscular Volume 80.6 fl (81-99); Monocytes # 0.3 K/mm3 (0.1-1.0); Monocytes % 9.1 % (1.7-9.3); Neutrophils # 2.2 K/mm3 (1.8-7.8); Neutrophils % 69.5 % (37.0-80.0); Platelet Count 183 K/mm3 (142-424); Red Blood Count 4.12 M/mm3 (4.20-5.40); Red Cell Distribution Width 11.7 % (11.5-17.5); White Blood Count 3.2 K/mm3 (4.8-10.8)
[2024-08-28 07:51] LABS: Alanine Aminotransferase 15 U/L (12-78); Albumin Level 2.6 g/dl (3.5-5.0); Albumin/Globulin Ratio 1.2 (1.1-1.8); Alkaline Phosphatase 120 U/L (38-126); Anion Gap 1.8 mEq/L (5-15); Aspartate Amino Transferase 19 U/L (14-36); Bilirubin,Total 0.3 mg/dl (0.2-1.3); Blood Urea Nitrogen 8 mg/dl (7-17); Carbon Dioxide 35 mmol/L (22.0-30.0); Chloride 106 mmol/L (98-107); Creatinine Clearance Estimated 54 mL/min (50-200); Estimated Glomerular Filt Rate 102 ml/min (>60); GFR (African American) 123 ML/MIN (>60); Globulin 2.2 g/dL (1.3-3.2); Glucose 85 mg/dl (74-100); Magnesium 1.7 mg/dl (1.6-2.3); Sodium 140 mmol/L (136-145); Total Protein,Serum 4.8 g/dl (6.3-8.2)
[2024-08-28 07:53] LABS: Potassium 2.8 mmoL/L (3.5-5.1)
[2024-08-28 07:56] VITALS: BP 130/71; PULSE 66; RESP 18; TEMP 37.1; O2SAT 93
[2024-08-28] MEDS: ONDANSETRON 4MG/2ML VIAL 4 MG IV (08:14)
[2024-08-28 08:21] LABS: Hemoglobin 11.7 g/dL (12.2-16.2)
[2024-08-28] MEDS: MAGNESIUM SULFATE IN WATER 2 GM/50 ML PIGGYBACK IV ×2 (09:18→11:08)
[2024-08-28] MEDS: POTASSIUM CHLORIDE 20MEQ TAB 40 MEQ PO ×3 (09:19→15:30)
[2024-08-28] MEDS: VENLAFAXINE XR 75MG CAPSULE 75 MG PO (09:20)
[2024-08-28] MEDS: ENOXAPARIN 40MG/0.4ML SYRINGE 40 MG SUBCUT (09:20)
[2024-08-28] MEDS: METOCLOPRAMIDE HCL 10MG/2ML VIAL 10 MG IVP ×2 (10:27→15:19)
[2024-08-28] MEDS: PIPERCILLIN/TAZO 3.375 GM in 0.9 % SODIUM CHLORIDE 50 ML IV ×2 (10:27→15:26)
[2024-08-28] MEDS: SIMETHICONE 80MG CHEWABLE TABLET 160 MG PO (11:14)
[2024-08-28 13:00] LABS: Adenovirus,PCR Not Detected (NotDetected); Bordetella Pertussis Not Detected (NotDetected); Chlamydophila Pneumoniae, PCR Not Detected (NotDetected); Coronavirus 19, PCR Not Detected (NotDetected); Coronavirus 229E Not Detected (NotDetected); Coronavirus NL63 Not Detected (NotDetected); Coronavirus OC43 Not Detected (NotDetected); Coronovirus HKU1,PCR Not Detected (NotDetected); Human Metapneumovirus Not Detected (NotDetected); Influenza A, PCR Not Detected (NotDetected); Influenza AH1, 2009 Not Detected (NotDetected); Influenza AH1, PCR Not Detected (NotDetected); Influenza AH3,PCR Not Detected (NotDetected); Influenza B, PCR Not Detected (NotDetected); Mycoplasma Pneumoniae, PCR Not Detected (NotDetected); Parainfluenza 1, PCR Not Detected (NotDetected); Parainfluenza 2, PCR Not Detected (NotDetected); Parainfluenza 3, PCR Not Detected (NotDetected); Parainfluenza 4, PCR Not Detected (NotDetected); Respiratory Syncytial Virus Not Detected (NotDetected); Rhinovirus/Enterovirus Not Detected (NotDetected)
[2024-08-28 13:52] LABS: Adenovirus F 40/41, stool Not Detected (NotDetected); Astrovirus Not Detected (NotDetected); Campylobacter Not Detected (NotDetected); Clostridium Difficile A/B, PCR Not Detected (NotDetected); Cryptosporidium Not Detected (NotDetected); Cyclospora Cayetanesis Not Detected (NotDetected); Entamoeba histolytica Not Detected (NotDetected); Enteroaggregative E coli Not Detected (NotDetected); Enteropathogenic E coli Not Detected (NotDetected); Enterotoxigenic E coli Not Detected (NotDetected); Giardia lamblia Not Detected (NotDetected); Norovirus Not Detected (NotDetected); Plesimonas Shigalloides, PCR Not Detected (NotDetected); Rotavirus A Not Detected (NotDetected); Salmonella, PCR Not Detected (NotDetected); Sapovirus Not Detected (NotDetected); Shiga-like toxin E coli Not Detected (NotDetected); Shigella Enterovasive E coli Not Detected (NotDetected); Vibrio Cholerae Not Detected (NotDetected); Vibrio, PCR Not Detected (NotDetected); Yersinia Entercolitica, PCR Not Detected (NotDetected)
[2024-08-28 14:41] LABS: Anion Gap 5.2 mEq/L (5-15); Blood Urea Nitrogen 5 mg/dl (7-17); Calcium 7.7 mg/dl (8.4-10.2); Carbon Dioxide 31 mmol/L (22.0-30.0); Chloride 103 mmol/L (98-107); Creatinine Clearance Estimated 54 mL/min (50-200); Estimated Glomerular Filt Rate 85 ml/min (>60); GFR (African American) 103 ML/MIN (>60); Glucose 149 mg/dl (74-100); Potassium 3.2 mmoL/L (3.5-5.1); Sodium 136 mmol/L (136-145)
[2024-08-28] MEDS: 0.9 % SODIUM CHLORIDE 1000ML 1,000 ML 999 ML IV (15:16)
--- NOTE | 2024-08-28 15:26 | P.DS_ITS ---
General Admission date:: 08/27/24 HPI HPI HPI: Michelle Harley is a 63-year-old female with a medical history of hypertension, anxiety/depression, GERD who presents with nausea/vomiting/diarrhea and generalized weakness. She states she is been having diarrhea for the past 4 days, including decreased appetite, nausea/vomiting. She denies fever/chills, upper respiratory symptoms, chest pain, shortness of breath, recent sick contacts. Workup in this ED significant for potassium 2.6, UA strongly suggestive of UTI. Case discussed with ED provider and decision was made to admit patient for decreased oral tolerance, hypokalemia. Hospital Course Hospital Course Hospital Course: Michelle Harley is a 63-year-old female with a medical history of hypertension, anxiety/depression, GERD who presents with nausea/vomiting/diarrhea and generalized weakness. She states she is been having diarrhea for the past 4 days, including decreased appetite, nausea/vomiting. She denies fever/chills, upper respiratory symptoms, chest pain, shortness of breath, recent sick contacts. Workup in this ED significant for potassium 2.6, UA strongly sugges tive of UTI. Case discussed with ED provider and decision was made to admit patient for decreased oral tolerance, hypokalemia. #Suspected gastroenteritis #Nausea/vomiting/diarrhea #Hypokalemia ? Symptomatic for the past 4 days prior to admission. Diarrhea panel negative. ? Initial potassium 2.6, repleted. ? Clinically improved with IV fluids, potassium repletion, antiemetics. Tolerating diet without nausea/vomiting, ambulating independently. #UTI ? UA grossly abnormal, urine culture pending. ? Discharged with levofloxacin for 5 more days. #Hypertension ? Amlodipine 5 mg, hold home lisinopril, bisoprolol due to normal pressures. Follow-up with PCP for resumption. #Anxiety/depression ? Resume home Effexor, diazepam. #GERD ? Resume home PPI. Exam Data for Last 24 hours Vital signs and Labs for Last 24 Hours: Temp Pulse Resp BP Pulse Ox O2 Del Method 98.8 F 66 18 130/71 93 L Room Air 08/28/24 07:56 08/28/24 07:56 08/28/24 07:56 08/28/24 07:56 08/28/24 07:56 08/28/24 11:00 Laboratory Results - last 24 hr 08/27/24 12:00: Urine Color Yellow, Urine Appearance Clear, Urine pH 6.5, Ur Specific [place] 1.025, Urine Protein 1+ A, Urine Glucose (UA) Negative, Urine Ketones Negative, Urine Blood Trace-i, Urine Nitrate Positive A, Urine Bilirubin 1+ A, Urine Urobilinogen 1.0, Ur Leukocyte Esterase 2+ A, Urine RBC None, Urine WBC 20-50, Ur Squamous Epith Cells Occasional 08/27/24 15:00: Troponin I < 0.01 08/27/24 16:20: Lactate 1.3 08/27/24 17:54: Troponin I < 0.01 08/28/24 06:52: WBC 3.2 L D, RBC 4.12 L, Hgb 11.7 L D, Hct 33.2 L, MCV 80.6 L, MCH 28.2, MCHC 34.9, RDW 11.7, Plt Count 183, MPV 10.0, Neut % (Auto) 69.5, Lymph % (Auto) 18.0, [place] % (Auto) 9.1, Eos % (Auto) 1.9, Baso % (Auto) 0.6, Neut # (Auto) 2.2, Lymph # (Auto) 0.6 L, [place] # (Auto) 0.3, Eos # (Auto) 0.1, Baso # (Auto) 0.0, Sodium 140, Potassium 2.8 L*, Chloride 106, Carbon Dioxide 35 H, Anion Gap 1.8 L, BUN 8, Creatinine 0.60, Estimated Creat Clear 54, Estimated GFR 102, Est GFR ( Amer) 123, Glucose 85 D, Calcium 8.0 L, Magnesium 1.7, Total Bilirubin 0.3, AST 19, ALT 15 D, Alkaline Phosphatase 120, Total Protein 4.8 L D, Albumin 2.6 L D, Globulin 2.2, Albumin/Globulin Ratio 1.2 08/28/24 13:30: Sodium 136, Potassium 3.2 L, Chloride 103, Carbon Dioxide 31 H, Anion Gap 5.2, BUN 5 L D, Creatinine 0.70, Estimated Creat Clear 54, Estimated GFR 85, Est GFR ( Amer) 103, Glucose 149 H D, Calcium 7.7 L I & O for Last 24 hours: Intake & Output 08/25/24 08/26/24 08/27/2408/28/25 23:59 23:59 23:59 23:59 Intake Total 180 / 1685 3776 / 3776 Output Total 0 / 0 0 / 0 Balance 180 / 1685 3776 / 3776 Weight 56.336 kg 57.878 kg Microbiology Reports for the Last 24 Hours: Microbiology 08/27/24 14:09 Blood Blood Culture - Preliminary NO GROWTH AFTER 24 HOURS 08/27/24 12:20 Blood Blood Culture - Preliminary NO GROWTH AFTER 24 HOURS 08/27/24 12:00 Urine,Clean Catch Urine Culture - Preliminary Gram Negative Rods Constitutional Constitutional: no acute distress *Routine HEENT Exam Head: Present normocephalic Eye: Present EOMI and PERRL ENT: Present mucous membranes moist *Routine Neck Exam Neck: Present supple; Absent lymphadenopathy *Routine Respiratory Exam Respiratory: Present CTA bilaterally *Routine Cardiovascular Exam Cardiovascular: Present RRR *Routine Abdominal Exam Abdominal: Present soft and normoactive bowel sounds; Absent tenderness *Routine Extremities Exam Extremities: Absent cyanosis, clubbing or edema *Routine Skin Exam Skin: Present warm; Absent rash *Routine Neurological Exam Neurological: Present alert and oriented X3 Results Data Completed and Pending Labs on day of discharge: Labs from last 24 hours 08/28/24 08/28/24 08/27/24 13:30 06:52 17:54 WBC 3.2 L D RBC 4.12 L Hgb 11.7 L D Hct 33.2 L MCV 80.6 L MCH 28.2 MCHC 34.9 RDW 11.7 Plt Count 183 MPV 10.0 Neut % (Auto) 69.5 Lymph % (Auto) 18.0 [place] % (Auto) 9.1 Eos % (Auto) 1.9 Baso % (Auto) 0.6 Neut # (Auto) 2.2 Lymph # (Auto) 0.6 L [place] # (Auto) 0.3 Eos # (Auto) 0.1 Baso # (Auto) 0.0 Sodium 136 140 Potassium 3.2 L 2.8 L* Chloride 103 106 Carbon Dioxide 31 H 35 H Anion Gap 5.2 1.8 L BUN 5 L D 8 Creatinine 0.70 0.60 Estimated Creat Clear 54 54 Estimated GFR 85 102 Est GFR ( Amer) 103 123 Glucose 149 H D 85 D Lactate Calcium 7.7 L 8.0 L Magnesium 1.7 Total Bilirubin 0.3 AST 19 ALT 15 D Alkaline Phosphatase 120 Troponin I < 0.01 Total Protein 4.8 L D Albumin 2.6 L D Globulin 2.2 Albumin/Globulin Ratio 1.2 Urine Color Urine Appearance Urine pH Ur Specific [place] Urine Protein Urine Glucose (UA) Urine Ketones Urine Blood Urine Nitrate Urine Bilirubin Urine Urobilinogen Ur Leukocyte Esterase Urine RBC Urine WBC Ur Squamous Epith Cells 08/27/24 08/27/24 08/27/24 16:20 15:00 12:00 WBC RBC Hgb Hct MCV MCH MCHC RDW Plt Count MPV Neut % (Auto) Lymph % (Auto) [place] % (Auto) Eos % (Auto) Baso % (Auto) Neut # (Auto) Lymph # (Auto) [place] # (Auto) Eos # (Auto) Baso # (Auto) Sodium Potassium Chloride Carbon Dioxide Anion Gap BUN Creatinine Estimated Creat Clear Estimated GFR Est GFR ( Amer) Glucose Lactate 1.3 Calcium Magnesium Total Bilirubin AST ALT Alkaline Phosphatase Troponin I < 0.01 Total Protein Albumin Globulin Albumin/Globulin Ratio Urine Color Yellow Urine Appearance Clear Urine pH 6.5 Ur Specific [place] 1.025 Urine Protein 1+ A Urine Glucose (UA) Negative Urine Ketones Negative Urine Blood Trace-i Urine Nitrate Positive A Urine Bilirubin 1+ A Urine Urobilinogen 1.0 Ur Leukocyte Esterase 2+ A Urine RBC None Urine WBC 20-50 Ur Squamous Epith Cells Occasional Preliminary micro results at discharge 08/27/24 14:09 Blood Culture - Preliminary Blood NO GROWTH AFTER 24 HOURS 08/27/24 12:20 Blood Culture - Preliminary Blood NO GROWTH AFTER 24 HOURS 08/27/24 12:00 Urine Culture - Preliminary Urine,Clean Catch Gram Negative Rods DS: Diagnosis Discharge Diagnosis (1) UTI (urinary tract infection): Status: Acute Code(s): N39.0 - Urinary tract infection, site not specified (2) Hypokalemia: Status: Acute Code(s): E87.6 - Hypokalemia Meds Home Medications and Allergies Home Medications ?Medication ?Instructions ?Recorded ?Confirmed ?Type atorvastatin 40 mg tablet 40 mg PO HS 11/04/17 08/27/24 History bisoprolol fumarate 10 mg tablet 10 mg PO HS High blood pressure 04/27/18 History lisinopril 20 mg tablet 20 mg PO DAILY 11/12/20 08/27/24 History amlodipine 5 mg tablet 5 mg PO DAILY 10/18/21 08/27/24 History trazodone 150 mg tablet 150 mg PO HS sleep 90 days #90 tabs 03/17/24 08/27/24 Rx venlafaxine 75 mg capsule,extended 75 mg PO DAILY #90 caps 05/20/24 08/27/24 Rx release 24 hr (Effexor XR) diazepam 2 mg tablet (Valium) 2 mg PO HSP PRN anxiety 08/27/24 08/27/24 History omeprazole 20 mg capsule,delayed 20 mg PO DAILY 08/27/24 08/27/24 History release levofloxacin 750 mg tablet 750 mg PO DAILY 5 days #5 tabs 08/28/24 Rx ondansetron 4 mg disintegrating 4 mg PO Q8H PRN nausea and 08/28/24 Rx tablet vomiting 7 days #14 tabs New Prescriptions to Start Prescriptions: levofloxacin Wayne Harvey ondansetron Wayne Harvey Allergies Allergy/AdvReac Type Severity Reaction Status Date / Time No Known Allergies Allergy Verified 08/27/24 12:10 Discharge Plan Disposition Patient Disposition: Home, Self-Care Condition: Fair Follow up Plan Follow up with: Tasha Delong APRN [Primary Care Provider] - Enter time for follow up (please call for follow up appointment) Prescriptions/Medication Reconciliation: New levofloxacin 750 mg tablet 750 mg PO DAILY 5 Days Qty: 5 0RF ondansetron 4 mg tablet,disintegrating 4 mg PO Q8H PRN (Reason: nausea and vomiting) 7 Days Qty: 14 0RF Continued atorvastatin 40 mg tablet 40 mg PO HS trazodone 150 mg tablet 150 mg PO HS 90 Days Qty: 90 1RF venlafaxine [Effexor XR] 75 mg capsule,extended release 24hr 75 mg PO DAILY Qty: 90 1RF amlodipine 5 MG tablet 5 mg PO DAILY omeprazole 20 mg capsule,delayed release(DR/EC) 20 mg PO DAILY Patient Comments: TAKE ONE CAPSULE BY MOUTH DAILY diazepam [Valium] 2 mg tablet 2 mg PO HSP PRN (Reason: anxiety) Held bisoprolol fumarate 10 MG tablet 10 mg PO HS Hold Instructions: Resume on 09/11/24. Your blood pressures were stable without this medication. Please hold until you speak to your PCP. lisinopril 20 MG tablet 20 mg PO DAILY Hold Instructions: Resume on 09/11/24. Your blood pressures were stable without this medication. Please hold until you speak to your PCP. Problem Reconciliation Problems Reviewed?: Yes Patient Discharge Instructions Patient Instructions: Urinary Tract Infection, Hypokalemia Print Language: [place] Providers Primary Care Provider: Tasha Delong Admit Provider: Wayne Harvey Attending Provider: Wayne Harvey
--- NOTE | 2024-08-30 11:05 | SW/DCPLANNER ---
Spoke with patient on the phone. Patient stated that she is doing okay. Patient stated that she has called and scheduled her follow up appointment. Patient stated that she was able to get her medicine picked up. Patient stated that she has no concerns or questions at this time. Kira Wilburn
== END 2024-08-28 16:38 | disposition home or self-care (01) ==
LOC: ER 14:26 → 2ND 14:47
PROVIDERS: Admitting Provider Student in an Organized Health Care Education/Training Program; Emergency Provider Emergency Medicine; PCP Nurse Practitioner Family; Visit Provider Student in an Organized Health Care Education/Training Program
DX: R11.2 Nausea with vomiting, unspecified (principal); R53.1 Weakness; E87.6 Hypokalemia; I10 Essential (primary) hypertension; R19.7 Diarrhea, unspecified; K21.9 Gastro-esophageal reflux disease without esophagitis; F32.9 Major depressive disorder, single episode, unspecified; F41.1 Generalized anxiety disorder; F17.210 Nicotine dependence, cigarettes, uncomplicated; B96.20 Unspecified Escherichia coli [E. coli] as the cause of diseases classified elsewhere; N39.0 Urinary tract infection, site not specified; Z80.0 Family history of malignant neoplasm of digestive organs; Z79.02 Long term (current) use of antithrombotics/antiplatelets; Z79.899 Other long term (current) drug therapy
CPT/HCPCS: 36415; 74177; 80048; 80053; 81001; 83605; 83690; 83735; 84100; 84484; 85025; 87040; 87086; 87088; 87186; 87507; 87633; 93005; 99291; G0378; J0131; J0696; J1650; J1885; J2405; J2543; J2765; J3475; J3480; J7030; J7120; Q9967; S0028

== ENCOUNTER 2024-11-17 10:00 | Outpatient (CLI) | payer OTHER, SELFPAY ==
--- OUTSIDE RECORDS SUMMARY | 2024-11-17 10:03 | XMS_ITS | Data Portability ---
Author Organization [facility] Address [address] [place] [address] Care Team Providers Care Oncology Rn Name Role Phone WU YOU Primary Care Provider Assessment No assessment recorded. Plan of Treatment Reminders Order Date Submit Date Provider Last Modified By Organization Details Last Modified Time Details Appointments None recorded. Lab None recorded. Referral None recorded. Procedures None recorded. Surgeries None recorded. Imaging None recorded. Medication Orders omeprazole 20 mg capsule,del ayed release 2023 024 [employer] [facility], [address] [place] [address] , [place], [place], [id number], 5 15:56:04 hydrocortis one 2.5 % topical cream with perineal applicator 2022 023 [employer] [facility], [address] [place] [address] [place], [id number], 3 20:16:02 Patient TargetsNo targets recorded. Patient InstructionsNo instructions recorded. Reason for Referral None Reported. Results Created Date Observation Date Name Description Value Unit Range Abnormal Flag Note LastModifiedBy Organization Detail LastModifiedTime 12/09/1912/09/2023 CBC W/AUT O DIFFE CHARLOTTE BONILLA note See Note Order ing Provi sha: Wilmer smith MD Not Available [address] , [place], [address], 12/09/2023 09:58:32 12/09/19 24 12/09/2023 CBC W/AUT O DIFFE RENTI AL white blood cell 8.5 10e3/ uL 4.5-13 .0 normal Not Available [address], [place], [address], 12/09/2023 09:58:32 12/09/19 24 12/09/2023 CBC W/AUT O DIFFE RENTI AL red blood cell 5.07 10e6/ uL 3.80-5 .10 normal Not Available [place] [address], [place], [address], 12/09/2023 09:58:32 12/09/19 24 12/09/2023 CBC W/AUT O DIFFE RENTI AL hemoglobin 15.1 g/dL 11.5-1 5.3 normal Not Available [place] [address], [place], [address], 12/09/2023 09:58:32 12/09/19 24 12/09/2023 CBC W/AUT O DIFFE RENTI AL hematocrit 43.1 % 34.0-4 6.0 normal Not Available [place] [address], [place], [address], 12/09/2023 09:58:32 12/09/19 24 12/09/2023 CBC W/AUT O DIFFE RENTI AL mean cell volume 85 fL 78.0-9 8.0 normal Not Available [place] [address], [place], [address], 12/09/2023 09:58:32 12/09/19 24 12/09/2023 CBC W/AUT O DIFFE RENTI AL mean cell HGB 29.8 pg 25.0-3 5.0 normal Not Available [place] [address], [place], [address], 12/09/2023 09:58:32 12/09/19 24 12/09/2023 CBC W/AUT O DIFFE RENTI AL mean cell HGB concentratio n 35.0 g/dL 31.0-3 6.0 normal Not Available [address], [place], [address], 12/09/2023 09:58:32 12/09/19 24 12/09/2023 CBC W/AUT O DIFFE RENTI AL red cell distribution width 11.9 % 11.0-1 5.0 normal Not Available [address], [place], [address], 12/09/2023 09:58:32 12/09/19 24 12/09/2023 CBC W/AUT O DIFFE RENTI AL platelet count 284 10e3/ uL 150-40 0 normal Not Available [address] Carol Hernandez, [place], [address], 12/09/2023 09:58:32 12/09/19 24 12/09/2023 CBC W/AUT O DIFFE RENTI AL immature granulocyte % 0 0-1 normal Not Available [address] [place], [place], [address], 12/09/2023 09:58:32 12/09/19 24 12/09/2023 CBC W/AUT O DIFFE RENTI AL neutrophil % 76 % 35-75 high Not Available [address] [place], [place], [address], 12/09/2023 09:58:32 12/09/19 24 12/09/2023 CBC W/AUT O DIFFE RENTI AL lymphocyte % 16 % 10-50 normal Not Available [address] [place], [place], [address], 12/09/2023 09:58:32 12/09/19 24 12/09/2023 CBC W/AUT O DIFFE RENTI AL monocyte % 5 % 0-15 normal Not Available [address] [place], [place], [address], 12/09/2023 09:58:32 12/09/19 24 12/09/2023 CBC W/AUT O DIFFE RENTI AL eosinophil % 1 % 0-5 normal Not Available [address] [place], [place], [address], 12/09/2023 09:58:32 12/09/19 24 12/09/2023 CBC W/AUT O DIFFE RENTI AL basophil % 1 % 0-5 normal Not Available [address] [place], [place], [address], 12/09/2023 09:58:32 12/09/19 24 12/09/2023 CBC W/AUT O DIFFE RENTI AL immature granulocyte # 0.03 x1000 /uL 0-0.05 normal Not Available [place] [address], [place], [address], 12/09/2023 09:58:32 12/09/19 24 12/09/2023 CBC W/AUT O DIFFE RENTI AL neutrophil # 6.50 x1000 /uL 1.50-8 .00 normal Not Available [place] [address], [place], [address], 12/09/2023 09:58:32 12/09/19 24 12/09/2023 CBC W/AUT O DIFFE RENTI AL lymphocyte # 1.38 x1000 /uL 1.20-5 .20 normal Not Available [address], [place], [address], 12/09/2023 09:58:32 12/09/19 24 12/09/2023 CBC W/AUT O DIFFE RENTI AL monocyte # 0.44 x1000 /uL 0.40-0 .90 normal Not Available [place] [address], [place], [address], 12/09/2023 09:58:32 12/09/19 24 12/09/2023 CBC W/AUT O DIFFE RENTI AL eosinophil # 0.11 x1000 /uL 0.00-0 .50 normal Not Available [address], [place], [address], 12/09/2023 09:58:32 12/09/19 24 12/09/2023 CBC W/AUT O DIFFE RENTI AL basophil # 0.05 x1000 /uL 0.00-0 .30 normal Not Available [address] [place], [place], [address], 12/09/2023 09:58:32 12/09/19 24 12/09/2023 CBC W/AUT O DIFFE RENTI AL NRBC automated 0.0 /100_ WBC Not Available [address] , [place], [address], 12/09/2023 09:58:32 12/09/19 24 12/09/2023 CBC W/AUT O DIFFE RENTI AL performing lab see note - [facility] R [address] [place] [address] Not Available [address] Hernandez, [place], [address], 12/09/2023 09:58:32 12/09/19 24 12/09/2023 COMP METAB OLIC PANEL note SEE NOTE Order ing Provi sha: Wilmer smith MD Not Available [address] [place], [address], 12/09/2023 10:29:39 12/09/19 24 12/09/2023 COMP METAB OLIC PANEL sodium 132 mmol/ L 136-14 5 low Not Available [address] [place], [address], 12/09/2023 10:29:39 12/09/19 24 12/09/2023 COMP METAB OLIC PANEL potassium 5.8 mmol/ L 3.5-5. 1 high Not Available [address], [place], [address], 12/09/2023 10:29:39 12/09/19 24 12/09/2023 COMP METAB OLIC PANEL chloride 98 mmol/ L 98-107 normal Not Available [address] [place], [place], [address], 12/09/2023 10:29:39 12/09/19 24 12/09/2023 COMP METAB OLIC PANEL carbon dioxide 25 mmol/ L 24-33 normal Not Available [address] [place], [address], 12/09/2023 10:29:39 12/09/19 24 12/09/2023 COMP METAB OLIC PANEL anion gap 14.8 mmol/ L 10-20 normal Not Available [address] [place], [address], 12/09/2023 10:29:39 12/09/19 24 12/09/2023 COMP METAB OLIC PANEL glucose 104 mg/dL 70-99 high Not Available [address] [place], [address], 12/09/2023 10:29:39 12/09/19 24 12/09/2023 COMP METAB OLIC PANEL blood urea nitrogen 20 mg/dL 7-18 high Not Available [address] [place], [address], 12/09/2023 10:29:39 12/09/19 24 12/09/2023 COMP METAB OLIC PANEL creatinine 1.16 mg/dL 0.55-1 .02 high Not Available [address] , [place], [address], 12/09/2023 10:29:39 12/09/19 24 12/09/2023 COMP METAB OLIC PANEL GFR (estimated) 54 mL/mi n >60 low [IM ROMEO NT]: The 2020 CKD-E PI equat ion is now the recom hernan d stand martha. This versi on does not inclu de race, as do the 2008 and 2011 CKD-E PI creat inine and creat inine -cyst atin C equat ions. Pleshahla e note that the eGFR now repor sergey is gener ated by the new 2020 CKD-E PI equat ion, which decre ases the eGFR for black s by up to 10% and incre ases the eGFR for non-b lacks by up to 10% in maddison rison to the old equat ion. To maddison re a legac y eGFR to a curre nt value , a 2008 CKD-E PI calcu lator is easil y seamaxi hable on the inter net. Calcu lated GFR: This calcu lated GFR is advoc ated by the Natio nal Kidne y Found ation to be used as an indic ator of Chron ic Kidne y Disea se (CKD) . 5 Stage s of Chron ic Kidne y Disea se. Stage 1 90 mL/mi n or more Healt hy kidne ys or Kidne y damag e with marge l or high GFR detai ls Stage 2 60 to 89 mL/mi n Kidne y damag e and mild decre ase in GFR detai ls Stage 3 30 to 59 mL/mi n Moder ate decre ase in GFR detai ls Stage 4 15 to 29 mL/mi n Sever e decre ase in GFR detai ls Stage 5 Less than 15 mL/mi n On dialy sis or Kidne y failu re Patie nt's clini hernesto statu s must be consi dered for the care of your patie nt. Not Available [address] [place], [address], 12/09/2023 10:29:39 12/09/19 24 12/09/2023 COMP METAB OLIC PANEL BUN/creatini ne ratio 17 12-20 normal Not Available [address] , [place], [address], 12/09/2023 10:29:39 12/09/19 24 12/09/2023 COMP METAB OLIC PANEL total protein 7.1 g/dL 6.4-8. 2 normal Not Available [address] [place], [place], [address], 12/09/2023 10:29:39 12/09/19 24 12/09/2023 COMP METAB OLIC PANEL albumin 3.9 g/dL 3.4-5. 0 normal Not Available [address] , [place], [address], 12/09/2023 10:29:39 12/09/19 24 12/09/2023 COMP METAB OLIC PANEL globulin 3.2 g/dL 1.5-4. 0 normal Not Available [address] , [place], [address], 12/09/2023 10:29:39 12/09/19 24 12/09/2023 COMP METAB OLIC PANEL albumin/glob ulin ratio 1.2 0.5-2. 0 normal Not Available [address] [place], [address], 12/09/2023 10:29:39 12/09/19 24 12/09/2023 COMP METAB OLIC PANEL calcium 9.2 mg/dL 8.5-10 .1 normal Not Available [address] [place], [address], 12/09/2023 10:29:39 12/09/19 24 12/09/2023 COMP METAB OLIC PANEL osmolality serum calculated 267 mOsm/ kg 272-28 8 low Not Available [address] [place], [address], 12/09/2023 10:29:39 12/09/19 24 12/09/2023 COMP METAB OLIC PANEL bilirubin total 0.4 mg/dL 0.2-1. 0 normal Use of this assay is not recom hernan d for patie nts under going treat ment with Eltro mbopa g due to the poten tial for false ly eleva sergey resul ts. Not Available [address] , [place], [address], 12/09/2023 10:29:39 12/09/19 24 12/09/2023 COMP METAB OLIC PANEL SGOT/AST 15 U/L 15-37 normal Not Available [address] , [place], [address], 12/09/2023 10:29:39 12/09/19 24 12/09/2023 COMP METAB OLIC PANEL SGPT/ALT 29 U/L 14-59 normal Not Available [address] , [place], [address], 12/09/2023 10:29:39 12/09/19 24 12/09/2023 COMP METAB OLIC PANEL alkaline phosphatase total 129 U/L 46-116 high Not Available [address] , [place], [address], 12/09/2023 10:29:39 12/09/19 24 12/09/2023 COMP METAB OLIC PANEL performing lab SEE NOTE - [facility] [address] [facility] [id number] Not Available [address] [place], [address], 12/09/2023 10:29:39 12/09/19 24 12/09/2023 LIPID PANEL note SEE NOTE Order ing Provi sha: Wilmer smith MD Not Available [address] [place], [address], 12/09/2023 10:29:41 12/09/19 24 12/09/2023 LIPID PANEL triglyceride s 146 mg/dL < 150 normal Natio nal Tracy stero l Educa tion Progr am (NCEP ) Guide lines : Marge l < 150 mg/dL Borde rline 150 - 199 mg/dL High 200 - 499 mg/dL Very High >or= 500 mg/dL Not Available [address] , [place], [address], 12/09/2023 10:29:41 12/09/19 24 12/09/2023 LIPID PANEL cholesterol 155 mg/dL < 200 normal Natio nal Tracy stero l Educa tion Progr am (NCEP ) Guide lines : Lynette able < 200 mg/dL Borde rline Risk 200 - 239 mg/dL High Risk >or= 240 mg/dL Not Available [address] , [place], [address], 12/09/2023 10:29:41 12/09/19 24 12/09/2023 LIPID PANEL HDL cholesterol 31 mg/dL > 60 low Natio nal Tracy stero l Educa tion Progr am Adult Treat ment Panel III (NCEP -ATP III) Guide lines : < 40 mg/dl : Low HDL-C holes terol >or= 60 mg/dl : High HDL-C holes terol Not Available [address] , [place], [address], 12/09/2023 10:29:41 12/09/19 24 12/09/2023 LIPID PANEL LDL cholesterol 95 mg/dL < 100 normal Natio nal Tracy stero l Educa tion Progr am (NCEP ) Guide lines : Optim al < 100 mg/dL Near/ Above Optim al 100 - 129 mg/dL Borde rline High 130 - 159 mg/dL High 160 - 189 mg/dL Very High >or= 190 mg/dL Not Available [address] , [place], [address], 12/09/2023 10:29:41 12/09/19 24 12/09/2023 LIPID PANEL performing lab SEE NOTE ML - [facility] [address] [place] [address] Not Available [address] , [place], [address], 12/09/2023 10:29:41 12/09/19 24 12/09/2023 AMYLA SE note See Note Order ing Provi sha: Wilmer smith MD Not Available [address] , [place], [address], 12/09/2023 10:29:43 12/09/19 24 12/09/2023 AMYLA SE amylase 24 U/L 25-115 low Not Available [address] , [place], [address], 12/09/2023 10:29:43 12/09/19 24 12/09/2023 AMYLA SE performing lab see note [facility] [address] [place] [address] Not Available [address] , [place], [address], 12/09/2023 10:29:43 12/09/19 24 12/09/2023 LIPAS E note See Note Order ing Provi sha: Wilmer smith MD Not Available [address] [place], [address], 12/09/2023 10:29:43 12/09/19 24 12/09/2023 LIPAS E lipase 29 U/L 16-77 normal Not Available [address] [place], [address], 12/09/2023 10:29:43 12/09/19 24 12/09/2023 LIPAS E performing lab see note ML - [facility] [address] [facility] [address] Not Available [address] , [place], [address], 12/09/2023 10:29:43 12/09/19 24 12/09/2023 MAGNE SIUM note SEE NOTE Order ing Provi sha: Wilmer smith MD Not Available [address] , [place], [address], 12/09/2023 10:29:44 12/09/19 24 12/09/2023 MAGNE SIUM magnesium 1.8 mg/dL 1.8-2. 4 normal Not Available [address] , [place], [address], 12/09/2023 10:29:44 12/09/19 24 12/09/2023 MAGNE SIUM performing lab SEE NOTE ML - [facility] [address] [facility] [address] Not Available [address] , [place], [address], 12/09/2023 10:29:44 12/09/19 24 12/09/2023 THYRO ID PANEL W/TSH note See Note Order ing Provi sha: Wilmer smith MD Not Available [address] , [place], [address], 12/09/2023 10:29:45 12/09/19 24 12/09/2023 THYRO ID PANEL W/TSH T4 free 1.04 NG/dL 0.76-1 .46 normal This test may be affec sergey by high level s of bioti n, found in some presc ripti on and over- the-c ounte r suppl ement s. [place], patie nts shoul d disco ntinu e bioti n 3 days befor e testi ng. Resul ts obtai tucker after recen t bioti n inges tion shoul d be inter prete d with cauti on. Not Available [address] , [place], [address], 12/09/2023 10:29:45 12/09/19 24 12/09/2023 THYRO ID PANEL W/TSH thyroid stimulating hormone 4.10 uIU/m L 0.36-3 .74 high This test may be affec sergey by high level s of bioti n, found in some presc ripti on and over- the-c ounte r suppl ement s. [place] ly, patie nts shoul d disco ntinu e bioti n 3 days befor e testi ng. Resul ts obtai tucker after recen t bioti n inges tion shoul d be inter prete d with cauti on. Not Available [address] , [place], [address], 12/09/2023 10:29:45 12/09/19 24 12/09/2023 THYRO ID PANEL W/TSH performing lab see note [address] [address] Not Available [address] , [place], [address], 12/09/2023 10:29:45 Result Notes None recorded. 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 Procedures Surgical History Date Name Laterality Status Provider Name and Address Organization Details Recorded Time 023 parathyroidectomy completed Micah Mccarthygieri [facility] - [facility] - [place] [facility] [place] 12/19/2022 12:52:43 022 EGD/Endoscopy completed Micah Mccarthygieri JO[facility] - [facility] - [place] [facility] [place] 03/21/2022 16:00:[address] of abdomen completed Micah Mccarthygieri [facility] - [facility] - [place] [facility] [place] 03/21/2022 16:01:26 021 completed Micah Corleyeri [facility] - [facility] - [place] [facility] [place] 12/19/2022 12:49:32 021 Date of Last Colonoscopy completed Micah Mccarthygieri JOANA - [facility] - [place] [facility] [place] 12/19/2022 12:49:32 021 Colonoscopy completed Micah Mccarthygieri JO[facility] - [facility] - [place] [facility] [place] 03/21/2022 16:02:01 021 mammography completed Micah Corleyeri JOANA - [facility] - [place] [facility] [place] 03/21/2022 16:00:39 020 US scan of gallbladder completed Micah Mccarthygieri JO[facility] - [facility] - [place] [facility] [place] 03/21/2022 16:01:52 Tonsillectomy/Adenoi dectomy completed Micah Hilda [facility] - [facility] - [place] & [place] 03/21/2022 15:58:49 Hysterectomy completed Micah Hilda [facility] - [facility] - [place] [facility] [place] 03/21/2022 15:59:10 Imaging Results None recorded. Procedure Notes None recorded. Medical Equipment None Reported. Allergies No known drug allergies Medications Name Sig Start Date Stop Date Status Note LastModified by Organization Details LastModified Time amoxicillin 500 mg capsule TAKE ONE CAPSULE BY MOUTH TWICE DAILY FOR 10 DAYS -- FINISH ALL MEDICINE -- 06/20 completed Not Available Not Available Not Available fluconazole 100 mg tablet TAKE ONE TABLET BY MOUTH EVERY DAY FOR 7 DAYS -- FINISH ALL MEDICINE -- 03/21 completed Not Available Not Available Not Available atorvastati n 40 mg tablet TAKE ONE TABLET BY MOUTH DAILY 2024 active Not Available Not Available Not Avai lable venlafaxine ER 75 mg capsule,ext ended release 24 hr TAKE ONE CAPSULE BY MOUTH EVERY DAY active Not Available Not Available No t Available azithromyci n 250 mg tablet TAKE 2 TABLETS BY MOUTH ON DAY 1, THEN TAKE 1 TABLET DAILY ON DAYS 2-5 active Not Available Not Available No t Available ibuprofen 800 mg tablet TAKE ONE TABLET BY MOUTH EVERY 6 HOURS NEEDED FOR PAIN active Not Available Not Available No t Available fluconazole 150 mg tablet TAKE ONE TABLET BY MOUTH EVERY 72 hours NEEDED active Not Available Not Available No t Available sucralfate 1 gram tablet TAKE ONE TABLET BY MOUTH THREE TIMES DAILY FOR 5 DAYS -- FINISH ALL MEDICINE -- 03/21 completed Not Available Not Available Not Available lisinopril 20 mg tablet TAKE ONE TABLET BY MOUTH DAILY 2024 active Not Available Not Available Not Avai lable ondansetron HCl 4 mg tablet TAKE ONE TABLET BY MOUTH EVERY 6 HOURS 03/21 completed Not Available Not Available Not Available venlafaxine ER 150 mg capsule,ext ended release 24 hr TAKE ONE CAPSULE BY MOUTH EVERY DAY FOR mood active Not Available Not Available No t Available potassium chloride ER 10 mEq tablet,exte nded release TAKE ONE TABLET BY MOUTH EVERY DAY --TAKE WITH FOOD-- 03/21 completed Not Available Not Available Not Available amlodipine 5 mg tablet TAKE ONE TABLET BY MOUTH EVERY DAY active Not Available Not Available No t Available ciprofloxac in 500 mg tablet TAKE ONE TABLET BY MOUTH TWICE DAILY FOR 10 DAYS -- FINISH ALL MEDICINE -- 03/21 completed Not Available Not Available Not Available clindamycin 1 %-benzoyl peroxide 5 % topical gel APPLY TOPICALLY TO THE AFFECTED AREA(S) TWICE DAILY -- FOR EXTERNAL USE ONLY-- active Not Available Not Available No t Available sulfamethox azole 800 mg-trimetho prim 160 mg tablet TAKE 1 TABLET BY MOUTH TWICE DAILY active Not Available Not Available No t Available omeprazole 40 mg capsule,del ayed release TAKE ONE CAPSULE BY MOUTH EVERY DAY 30 MINUTES BEFORE morning meal 01/11 completed Not Available Not Available Not Available bisoprolol fumarate 10 mg tablet TAKE ONE TABLET BY MOUTH DAILY 2024 active Not Available Not Available Not Avai lable ciclopirox 8 % topical solution APPLY TOPICALLY TO THE AFFECTED AREA(S) EVERY DAY 06/20 completed Not Available Not Available Not Available oxycodone-a cetaminophe n 5 mg-325 mg tablet TAKE ONE TABLET BY MOUTH EVERY 6 HOURS NEEDED FOR PAIN active Not Available Not Available No t Available hydrocortis one 2.5 % topical cream with perineal applicator APPLY TO THE AFFECTED AREA(S) TWICE DAILY active Not Available Not Available No t Available potassium chloride ER 20 mEq tablet,exte nded release(par t/cryst) TAKE ONE TABLET BY MOUTH EVERY DAY --TAKE WITH FOOD-- 06/20 completed Not Available Not Available Not Available diazepam 2 mg tablet TAKE ONE TABLET BY MOUTH AT BEDTIME FOR ANXIETY active Not Available Not Available No t Available cephalexin 500 mg capsule TAKE ONE CAPSULE BY MOUTH EVERY 8 HOURS UNTIL GONE active Not Available Not Available No t Available trazodone 150 mg tablet TAKE ONE TABLET BY MOUTH AT BEDTIME FOR SLEEP active Not Available Not Available No t Available buspirone 10 mg tablet TAKE ONE TABLET BY MOUTH THREE TIMES DAILY active Not Available Not Available No t Available promethazin e 25 mg tablet TAKE ONE TABLET BY MOUTH EVERY 6 HOURS NEEDED MAY CAUSE DROWSINES S 03/21 completed Not Available Not Available Not Available Citrucel 500 mg tablet Take 2 tablets every day by oral route. active Not Available Not Available No t Available buspirone 7.5 mg tablet TAKE ONE TABLET BY MOUTH TWICE DAILY; MAY take 1 additiona l tablet EVERY DAY NEEDED FOR anxiety. active Not Available Not Available No t Available omeprazole 20 mg capsule,del ayed release TAKE ONE CAPSULE BY MOUTH DAILY active Not Available Not Available No t Available furosemide 20 mg tablet TAKE ONE TABLET BY MOUTH EVERY DAY active Not Available Not Available No t Available ondansetron 4 mg disintegrat ing tablet TAKE ONE TABLET BY MOUTH EVERY 8 HOURS NEEDED FOR NAUSEA AND VOMITING active Not Available Not Available No t Available cefdinir 300 mg capsule TAKE ONE CAPSULE BY MOUTH TWICE DAILY FOR 10 DAYS -- FINISH ALL MEDICINE -- active Not Available Not Available No t Available fluticasone propionate 50 mcg/actuati on nasal spray,suspe nsion instill 1 SPRAY IN EACH NOSTRIL EVERY DAY 12/19 completed Not Available Not Available Not Available dicyclomine 10 mg capsule TAKE ONE CAPSULE BY MOUTH THREE TIMES DAILY with meals NEEDED MAY CAUSE DROWSINES S 06/20 completed Not Available Not Available Not Available spironolact one 50 mg tablet TAKE ONE TABLET BY MOUTH EVERY DAY active Not Available Not Available No t Available oxycodone 5 mg tablet TAKE ONE TABLET BY MOUTH TWICE DAILY NEEDED FOR PAIN MAY CAUSE DROWSINES S active Not Available Not Available No t Available buprenorphi ne 8 mg-naloxone 2 mg sublingual tablet DISSOLVE 1/4 TABLET UNDER THE TONGUE DAILY 03/21 completed Not Available Not Available Not Available sodium fluoride 1.1 % dental paste BRUSH with a pea size AMOUNT THREE TIMES DAILY FOR 15 DAYS DIRECTED 03/21 completed Not Available Not Available Not Available melatonin 5 mg tablet Take 2 tablets every day by oral route at bedtime. 12/19 completed Not Available Not Available Not Available Linzess 72 mcg capsule TAKE ONE CAPSULE BY MOUTH 30 MINUTES BEFORE THE first meal of THE DAY ON an EMPTY stomach 03/21 completed Not Available Not Available Not Available prasterone (DHEA) 10 mg tablet Take 1 tablet every day by oral route. active Not Available Not Available No t Available Vitals Date Recorded Body weight Body temperature Heart rate Systolic blood pressure Diastolic blood pressure Provider Name and Address Organization Details Last Updated DateTime 06/20/2022 17509.0 5 g 98 [degF] 69 /min 163 mm[Hg] 85 mm[Hg] socorro lerma [facility] & [place] 2 12:50:02 Date Recorded Body height Body mass index (BMI) Body weight Body temperature Heart rate Respiratory rate Systolic blood pressure Diastolic blood pressure Provider Name and Address Organization Details Last Updated DateTime 3 165.1 cm 21.4 kg/m2 46602.2 6 g 98.4 [degF] 59 /min 18 /min 138 mm[Hg] 75 mm[Hg] Micah [facility] & [place] 3 12:48:56 Date Recorded Body height Body mass index (BMI) Body weight Body temperature Heart rate Respiratory rate Systolic blood pressure Diastolic blood pressure Provider Name and Address Organization Details Last Updated DateTime 4 165.1 cm 22.3 kg/m2 62292.1 g 97.9 [degF] 52 /min 18 /min 159 mm[Hg] 78 mm[Hg] [facility]ah [facility] & [place] 15:37:47 Social History Question Answer Notes LastModified by Organizat ion Details LastModified Time Tobacco Smoking Status Current Every Day Smoker Micah [facility], [facility] & [place] 03/21/2022 15:56:28 Do You Have An Advance Directive? Yes Information not available 03/21/2022 Are You Blind Or Do You Have Difficulty Seeing? No Information not available 03/21/2022 Is Blood Transfusion Acceptable In An Emergency? Yes Information not available 12/19/2022 What Is Your Level Of Caffeine Consumption? Occasional Decaf Tea, Information not available 12/19/2022 Are You Deaf Or Do You Have Serious Difficulty Hearing? No Information not available 12/19/2022 What Type Of Diet Are You Following? REGULAR Information not available 12/19/2022 Have There Been Any Changes To Your Family Or Social Situation? No Information not available 12/19/2022 What Was The Date Of Your Most Recent Tobacco Screening? 06/17/2022 Information not available 12/19/2022 How Many Children Do You Have? 2 Information not available 12/19/2022 Do You Have Any Pets? Yes Information not available 12/19/2022 What Is Your Relationship Status? Information not available 12/19/2022 Do You Use Your Seat Belt Or Car Seat Routinely? Yes Information not available 12/19/2022 Are You Passively Exposed To Smoke? Yes Information not available 03/21/2022 How Much Tobacco Do You Smoke? 1 PPD Information not available 03/21/2022 How Many Years Have You Smoked Tobacco? 20 Information not available 12/19/2022 Do You Have Difficulty Walking Or Climbing Stairs? No Information not available 12/19/2022 Are You Currently In School? No Information not available 12/19/2022 Sex: Unknown Functional Status Question Answer Note LastModified by Organizat ion Details LastModified Time Do you use any illicit or recreational drugs? No Information not available 12/19/2022 What is your level of alcohol consumption? None Information not available 03/21/2022 Do you or have you ever used smokeless tobacco? Never used smokeless tobacco Information not available 12/19/2022 Are you currently employed? No Information not available 12/19/2022 Do you have transportation difficulties? No Information not available 12/19/2022 Are you able to walk? YESWOREST Information not available 12/19/2022 Do you have difficulty doing errands alone? No Information not available 12/19/2022 Are you able to care for yourself? Yes Information n ot available 12/19/2022 Do you have difficulty dressing or bathing? No Information not available 12/19/2022 What is your exercise level? Occasional Information not available 03/21/2022 Mental Status Question Answer Note LastModified by Organizat ion Details LastModified Time Do you feel stressed (tense, restless, nervous, or anxious, or unable to sleep at night)? [id number] Information not available 03/21/2022 Do you have difficulty concentrating, remembering or making decisions? No Information no t available 12/19/2022 Family History Relationship Description Onset Age of this Age Resolved Age Notes LastModified by Organization Details LastModified Time Mother Polyp of colon mruggieri Not available 2021 15:54:26 Mother Ulcerative colitis mruggieri Not available 2021 15:54:45 Paternal Grandmother Family history of cancer of colon mruggieri Not available 2021 15:55:04 Medical History Condition Response Coronary Artery Disease N None N Gout N Colon Cancer N Kidney Stones Y Hyperthyroidism N Depression Y COPD N GI Problems Y Hypothyroidism N Osteoporosis/Osteopenia N Diverticulitis/Diverticulosis N Colon Polyps N Diabetes N Anxiety Disorder Y Bleeding Disorder N Seizures/Epilepsy N Arthritis Y Tuberculosis N Hyperlipidemia Y Cancer N Stroke N Asthma N Sleep Apnea N High Cholesterol Y GERD/Reflux Y Hepatitis N Liver Disease Y Cirrhosis N Psychiatric/Mental Health Condition Y Heart Disease N Hypertension Y Kidney Disease N Gynecological History Statement/Question Response Abnormal Pap N Date of Last Colonoscopy 11/10/2020 03/30/2021 Sexually Active? Y Menses Monthly N Current Control Method Hysterectom y Obstetrics History GPAL:G 0 P 0 0 0 0 Immunizations Vaccine Type Date Status Note Provider Nam e and Address Organization Details Recorded Time SARS-COV-2 (COVID-19) vaccine, UNSPECIFIED 06/30/2020 completed Micah james, [facility] - [facility] - [place] & [place] 03/21/2022 15:52:29 pertussis 06/30/2015 completed Micah james, [facility] - [facility] - [place] & [place] 03/21/2022 15:52:40 Hep A, adult 06/30/2011 completed Micah james, [facility] - [facility] - [place] & [place] 03/21/2022 15:53:06 Hep B, adult 06/30/2011 completed Micah james, [facility] - [facility] - [place] & [place] 03/21/2022 15:53:27 Past Encounters Encounter ID Performer Location Encounter Start Date Encounter Closed Date Diagnosis/Indication Diagnosis SNOMED-CT Code Diagnosis ICD10 Code Diagnosis Note [id number] Jayden Adrian MD [facility] erology [address] [place] [phone] 03/21/2022 15:09:39 03/21/2022 16:19:23 Chronic constipation 266587614 K59.09 The patient's chronic constipati on has improved dramatical ly, she is taking fiber on regular basis drinking plenty of water and is having a bowel movement without difficulty every other day without pain or discomfort . No melena or bright red blood per rectum. Nonulcer dyspepsia 12006 07 K30 The patient's upper abdominal discomfort was without associated ulceration or significan t inflammati on. With discontinu ation of high amounts of caffeine, and with PPI therapy the patient's upper abdominal symptoms have resolved entirely. Continue current PPI therapy follow-up 3 months [id number] Jayden Adrian MD [facility] erology [address] [place] [address],[address] [address] 06/20/2022 12:29:31 06/20/2022 13:03:32 Chronic constipation 784314136 K59.09 The patient's chronic constipati on has improved dramatical ly, she is taking fiber on regular basis drinking plenty of water and is having a bowel movement without difficulty every other day without pain or discomfort . No melena or bright red blood per rectum. No change continue fiber Nonulcer dyspepsia 59167 07 K30 The patient's upper abdominal discomfort was without associated ulceration or significan t inflammati on. With discontinu ation of high amounts of caffeine, and with PPI therapy the patient's upper abdominal symptoms have resolved entirely. Continue current PPI therapy follow-up 6 months [id number] [facility] [address] [place] [address],[address] [phone] 12/19/2022 12:23:33 12/19/2022 13:20:57 Chronic constipation 833971592 K59.09 The patient's chronic constipati on Did have a slight worsening. We discussed with the patient the importance see remaining on fiber supplement ation on a daily basis and that if she goes more than 2 days without a bowel movement she is suggested to take a dose of local magnesia before going to bed that night. Nonulcer dyspepsia 84170 07 K30 The patient's upper abdominal discomfort was without associated ulceration or significan t inflammati on. With discontinu ation of high amounts of caffeine, and with PPI therapy the patient's upper abdominal symptoms have resolved entirely. Continue current PPI therapy follow-up 6 months Hemorrhoids 19571130 K64 .9 Mild hemorrhoid al irritation from a bout of constipati on. Begin hydrocorti sone cream, problems did not resolve patient is to call [id number] [facility] [address] [place] [address],[address] [phone] 01/12/2024 14:44:08 01/12/2024 16:13:19 Chronic constipation 929972410 K59.09 Doing well on fiber supplement ation with minimal symptoms. Continue fiber at current dose, encourage significan t water intake. Nonulcer dyspepsia 19759 07 K30 Controlled , recently reduced omeprazole from 40 mg a day to 20 mg a day with no increased symptoms continue on 20 mg a day at next follow-up consider discontinu ation Hemorrhoids 81739829 K64 .9 asymptomat ic Health Concerns Section Related Observation LastModified by Organization Detai ls LastModified Time None Recorded Concern Status LastModified by Organization Details LastModified Time None Recorded Advance Directives Directive Y: Payers Insurance Date Sequence Insurance Name Policy Number Policy Álvarez Covered Member ID Álvarez Member ID Guarantor Name 01/17/2024 1 [facility] [id number] Raul Harley [id number] Michelle Lakisha Cricket Notes Date Note Type Note Provider Name and Address Organization Details Recorded Time 03/21/2022 text/html The patient presents today in routine follow-up reporting that she has done very well since we have seen her last. The patient was seen initially with complaints of abdominal pain, constipation, and for evaluation of an abnormality noted on an outside CT scan. The patient underwent an EGD due to the concerns regarding the CT scan and some gastric wall thickening this demonstrated very mild gastric inflammation, no ulcerations, no masses. The patient was instructed to stop her excessive caffeine intake her proton pump inhibitor in her abdominal pain has resolved entirely. In regards to the patient's constipation she was taken off of Linzess which was resulting in rebound diarrhea, placed on fiber instructed to drink plenty of water she is now having a bowel movement without difficulty every other day without difficulty, no diarrhea. Reports that she feels like no woman. She is eating well she denies any complaints. Jadyen Adrian MD [facility],[address], [place], [address], [place] - [place] - [place] & [place] 03/21/2022 16:19:50 06/20/2022 text/html this is a routin e follow-up in regards to nonulcer dyspepsia and chronic idiopathic constipation. The patient presents today reporting that she is doing well, he has had no real constipation problems on current therapy, she denies any abdominal pain. She has had no heartburn or indigestion. Jayden Adrian MD [address] [place] [address],[address], [place], [address], [place] - [facility] & [place] 06/20/2022 13:03:28 12/19/2022 text/html The patient presents today routine follow-up, the patient notes that she has had 1 episode of constipation due to some dietary changes, that is now getting back towards normal which returned to her baseline diet. She denies any epigastric pain no nausea or vomiting. While she was having constipation the noted a little bit of some hemorrhoidal swelling. No bleeding. Jayden Adrian MD [address] [place] [address],[address], [place], [address], [facility] & [place] 12/19/2022 13:11:17 01/12/2024 text/html follow this is a routine follow-up visit for this 63-year-old female. The patient has a history of chronic constipation, that at this time is relatively well controlled with fiber supplementation. The patient also has a history of hemorrhoidal disease, currently quiescent. The patient has had nonulcer dyspepsia which is doing well at this time, has tolerated reduction of her proton pump inhibitor from 40 mg a day to 20 mg a day recently. Jayden Adrian MD [address] [place] [address],[address], [place], [address], [facility] - [facility] & [place] 01/12/2024 16:17:23 OBGyn Episode No OBEpisode recorded.
[2024-11-17 11:14] LABS: Alanine Aminotransferase 62 U/L (12-78); Albumin Level 3.6 g/dl (3.5-5.0); Albumin/Globulin Ratio 1.4 (1.1-1.8); Alkaline Phosphatase 141 U/L (38-126); Amylase 41 U/L (30-110); Anion Gap 7.7 mEq/L (5-15); Aspartate Amino Transferase 54 U/L (14-36); Bilirubin,Total 0.6 mg/dl (0.2-1.3); Blood Urea Nitrogen 7 mg/dl (7-17); Calcium 8.6 mg/dl (8.4-10.2); Carbon Dioxide 28 mmol/L (22.0-30.0); Chloride 103 mmol/L (98-107); Estimated Glomerular Filt Rate 125 ml/min (>60); GFR (African American) 151 ML/MIN (>60); Globulin 2.5 g/dL (1.3-3.2); Glucose 79 mg/dl (74-100); Lipase 65 U/L (23-300); Potassium 3.7 mmoL/L (3.5-5.1); Sodium 135 mmol/L (136-145); Total Protein,Serum 6.1 g/dl (6.3-8.2)
[2024-11-24 09:25] LABS: ALT (SGPT) P5P 52 IU/L (0-40); AST (SGOT) P5P 59 IU/L (0-40); Alpha 2-Macroglobulins, Qn 147 mg/dL (110-276); Apolipoprotein A-1 140 mg/dL (116-209); Bilirubin, Total 0.1 mg/dL (0.0-1.2); Cholesterol, Total 135 mg/dL (100-199); Fibrosis Score 0.04 (0.00-0.21); GGT 23 IU/L (0-60); Glucose 85 mg/dL (70-99); Haptoglobin 138 mg/dL (37-355); NASH Score 0.64 (0.00-0.25); Steatosis Score 0.57 (0.00-0.40); Triglycerides 143 mg/dL (0-149)
== END 2024-11-17 23:59 | disposition home or self-care (01) ==
LOC: LAB 10:01
PROVIDERS: PCP Nurse Practitioner Family; Visit Provider Internal Medicine Gastroenterology
DX: K76.0 Fatty (change of) liver, not elsewhere classified (principal); R10.13 Epigastric pain; R14.0 Abdominal distension (gaseous); R19.7 Diarrhea, unspecified
CPT/HCPCS: 36415; 80053; 82150; 82172; 82247; 82465; 82947; 82977; 83010; 83690; 83883; 84450; 84460; 84478

== ENCOUNTER 2024-12-21 14:21 | Outpatient (CLI) | payer OTHER, SELFPAY ==
--- NOTE | 2024-12-21 14:23 | XR_ITS ---
FINAL REPORT CLINICAL HISTORY: Foot Pain FINDINGS: LEFT FOOT Three views of the left foot demonstrate no acute fracture or dislocation. There is mild hallux valgus deformity with mild degenerative change. Bones are osteopenic. Os navicularis is seen as a normal variant. The visualized joint spaces are normally aligned. The soft tissues are unremarkable. IMPRESSION: Significant degenerative change of the first MTP joint without acute bony abnormality. Reviewed, Interpreted and Dictated by Liam Max MD Transcribed by Gladys Smith Authenticated and [facility]
--- NOTE | 2024-12-21 14:23 | XR_ITS ---
FINAL REPORT CLINICAL HISTORY: Foot Pain FINDINGS: RIGHT FOOT Three views of the right foot demonstrate no acute fracture or dislocation. There is mild hallux valgus deformity with mild degenerative change. Bones are osteopenic. There are moderate degenerative changes of the first MTP joint. os navicularis is seen as a normal variant. The visualized joint spaces are normally aligned. The soft tissues are unremarkable. IMPRESSION: Significant degenerative change of the first MTP joint without acute bony abnormality. Reviewed, Interpreted and Dictated by Liam Max MD Transcribed by Gladys Smith Authenticated and [facility]
--- OUTSIDE RECORDS SUMMARY | 2024-12-21 14:24 | XMS_ITS | Clinical Summary ---
Author Organization [facility] Address [address] [place] [address] Care Team Providers Care Intellectual Property Counsel Name Role Phone Tomy Hawkins MD Primary Care Provider [phone] Allergies No known active allergies Medications amLODIPine (Norvasc) 5 MG tablet Take 5 mg by mouth 1 (one) time each day. 3 Active atorvastatin (Lipitor) 40 MG tablet Take 40 mg by mouth 1 (one) time each day. 3 Active bisoprolol (Zebeta) 10 MG tablet Take 10 mg by mouth 1 (one) time each day. 3 Active busPIRone (Buspar) 7.5 MG tablet TAKE ONE TABLET BY MOUTH TWICE DAILY. MAY take one additional TABLET BY MOUTH EVERY DAY NEEDED FOR ANXIETY. 3 Active diazePAM (Valium) 2 MG tablet TAKE ONE TABLET BY MOUTH EVERY NIGHT AT BEDTIME NEEDED FOR ANXIETY 3 Active lisinopril 20 MG tablet Take 20 mg by mouth 1 (one) time each day. 3 Active omeprazole (PriLOSEC) [address] capsule TAKE ONE CAPSULE BY MOUTH EVERY DAY 30 MINUTES BEFORE morning meal 3 Active potassium chloride CR (Klor-Con) 10 MEQ ER tablet TAKE ONE TABLET BY MOUTH EVERY DAY --TAKE WITH FOOD-- 2 Active traZODone (Desyrel) 150 MG tablet TAKE ONE TABLET BY MOUTH EVERY DAY AT BEDTIME MAY CAUSE DROWSINESS 0 Active venlafaxine XR (Effexor-XR) 75 MG 24 hr capsule TAKE ONE CAPSULE BY MOUTH EVERY DAY WITH 150 MG CAPSULE (TOTAL DOSE OF 225 MG) Active progesterone (Prometrium) 100 MG capsule Take 100 mg by mouth 1 (one) time each day. Active TESTOSTERONE IM Inject into the muscle. Q3m; last dose around 08/26 Active cholecalciferol (Vitamin D-3) 10 MCG (400 UNIT) tablet Take 400 Units by mouth 1 (one) time each day. Active ESTRADIOL CYPIONATE IM Inject into the muscle. Q3m; last dose 09/23 Active acetaminophen (Tylenol) 500 MG tablet Take 2 tablets (1,000 mg total) by mouth every 6 (six) hours if needed for pain. 30 tablet Active Active Problems Problem Noted Date Diagnosed Date Primary hyperparathyroidism 09/12/2022 Gastroesophageal reflux disease without esophagi tis 09/12/2022 Back pain 07/21/2020 DDD (degenerative disc disease), lumbar 07/21/19 Carpal tunnel syndrome of right wrist 10/17/2015 Family History Medical History Relation Name Comments Hypertension Father Hypertension Mother Hypertension Other Anesthesia problems Neg Hx Malig Hyperthermia Neg Hx Relation Name Status Comments Father Mother Other Social History Tobacco Use Types Packs/Day Years Used Date Smoking Tobacco: Every Day Cigarettes 1 20 Smokeless Tobacco: Never Tobacco Cessation:Ready to Q uit: Not Asked; Counseling Given: Not Answered Alcohol Use Standard Drinks/Week Comments No 0 (1 standard drink = 0.6 oz pur e alcohol) PHQ-2 Answer Date Recorded Patient Health Questionnaire-2 Score 0 09/12/2022 PHQ-2A Answer Date Recorded Depression Risk 0 09/12/2022 Comments No Sex and Gender Information Value Date Recorded Sex Assigned at Not on file Legal Sex Female 8:26 PM EDT Gender Identity Not on file Sexual Orientation Not on file Last Filed Vital Signs Vital Sign Reading Time Taken Comments Blood Pressure 148/75 09/20/2022 9:53 AM EDT Pulse 65 09/20/2022 9:53 AM EDT Temperature 36.7 C (98 F) 09/20/2022 9:53 AM EDT Respiratory Rate 20 09/19/2022 3:05 PM EDT Oxygen Saturation 93% 09/19/2022 3:05 PM EDT Inhaled Oxygen Concentration - - Weight 57.2 kg (126 lb) 09/20/2022 9:53 AM EDT Height 165.1 cm (5' 5 ) 09/20/2022 9:53 AM EDT Body Mass Index 20.97 09/20/2022 9:53 AM EDT Plan of Treatment Health Maintenance Due Date Last Done Comments [facility]-HIV Screening 1962 [facility]-/Child/Adol SDOH Screenings 1962 [facility]- SDOH Screenings 1980 [facility]-Adult SDOH Screenings 1980 CT Colonography 09/02/2007 Colonoscopy 09/02/2007 FIT-DNA 09/02/2007 FIT 09/02/2007 FOBT 09/02/2007 Sigmoidoscopy 09/02/2007 [facility]-Colorectal Cancer Screening 09/02/2007 [facility]-Breast Cancer Screening 2012 [facility]-Pneumococcal Vaccine: 50 + Years (1 of 1 - PCV) 2012 [facility]-Zoster Vaccines (1 of 2) 2012 [facility]-DTaP,Tdap,and Td Vaccine s (2 - Td or Tdap) 05/04/2022 05/04/2012, 03/07/1999 [facility]-Depression Screening 09/13/2023 023, 09/12/2022 [id number] Vaccine ( season) 2024 05/05/2021, 09/13/2020 [facility]-Influenza Vaccine (Seaso n Ended) 2025 06/03/2022, 04/10/2021 [facility]-RSV Vaccine: 60+ Years o r (1 - 1-dose 75+ series) 2037 [facility]-Hepatitis C Screening Completed 04/27/2018 HPV Vaccines Aged Out No longer eligi ble based on patient's age to complete this topic [facility]-HIB Vaccines Aged Out No longer e ligible based on patient's age to complete this topic [facility]-Hepatitis A Vaccines Aged Out No longer eligible based on patient's age to complete this topic [facility]-IPV Vaccines Aged Out No longer e ligible based on patient's age to complete this topic [facility]-Rotavirus Vaccines Aged Out No lo nger eligible based on patient's age to complete this topic Procedures Procedure Name Priority Date/Time Associated Diagnosis Comments HEPATITIS C ANTIBODY - ED W/REFLEX TO HCV QUANT PCR Routine 04/27/2018 10:17 AM EDT from Last 3 Months or Most Recently Relevant to Health Maintenance Results * [place] Hepatitis C Antibody (04/27/2018 10:17 AM EDT) [place] Hepatitis C Ab NEGATIVE Reference Range: Negative SUNQUEST 04/27/2018 10:1 7 AM EDT 04/27/2018 10:33 AM EDT us Jose Fofana MD LAB BLOOD ORDERABLES Final Re sult SUNQUEST from Last 3 Months or Most Recently Relevant to Health Maintenance Insurance Care Teams Intellectual Property Counsel Relationship Specialty Start Date End Date Tomy Hawkins MD [address] [place] [id number] PCP - General 11/10/20
--- OUTSIDE RECORDS SUMMARY | 2024-12-21 14:24 | XMS_ITS | Clinical Summary ---
Author Organization [facility] Address [address] [place] [address] Phone Care Team Providers Care Nailhead Puncher Name Role Phone Tomy Hanson MD Primary Care Provider [phone] Allergies No known active allergies Medications metoprolol succinate ER (TOPROL-XL) 100 mg Oral Tablet Sustained Release 24 hr Take 100 mg by mouth daily. Active lisinopril-hydroc hlorothiazide (PRINZIDE;ZESTORE TIC) 20-12.5 mg Oral Tablet Take 1 Tab by mouth daily. Active atorvastatin (LIPITOR) 40 mg Oral Tablet Take 40 mg by mouth daily. Active traZODone (DESYREL) 150 mg Oral Tablet Take 150 mg by mouth nightly. Active venlafaxine (EFFEXOR-XR) 150 mg Oral Capsule, Sust. Release 24 hr Take 150 mg by mouth daily. Active celecoxib (CELEBREX) 200 mg Oral Capsule Take by mouth 2 times daily. Active cyclobenzaprine (FLEXERIL) 10 mg Oral Tablet Take by mouth 2 times daily. Active ALPRAZolam (XANAX) 0.5 mg Oral Tablet Take 0.5 mg by mouth 2 times daily. Active SUMAtriptan (IMITREX) 50 mg Oral Tablet Take 50 mg by mouth as needed. Active pediatric multivitamin Oral Tablet, Chewable Take 1 Tab by mouth daily (with breakfast) . Active Active Problems Problem Noted Date Diagnosed Date Carpal tunnel syndrome of right wrist 10/17/2015 Surgical History Surgery Date Site/Laterality Comments TONSILLECTOMY HYSTERECTOMY DILATION AND CURETTAGE OF UTERUS CARPAL TUNNEL RELEASE 10/19/2015 Hand/Right RIGHT CARPAL TUNNEL RELEASE; Surgeon: Danie Wisdom MD; Location: PSYCHIATRIC; Service: Hand Medical History Medical History Date Comments Hyperlipidemia Hypertension Irritable bowel syndrome Arthritis Headache Osteoporosis Kidney stones Depression Family History Medical History Relation Name Comments COPD Father Heart Disease Father High Blood Pressure Father Depression Mother High Blood Pressure Mother Relation Name Status Comments Father Mother Social History Tobacco Use Types Packs/Day Years Used Date Smoking Tobacco: Never Assessed Alcohol Use Standard Drinks/Week Comments Yes 0 (1 standard drink = 0.6 oz pur e alcohol) occasional Comments Unknown Sex and Gender Information Value Date Recorded Sex Assigned at Not on file Legal Sex Female 12:11 PM EST Gender Identity Not on file Sexual Orientation Not on file Obstetrics History Para Term AB IAB SAB Ectopic Multiple Livin g Live Births 3 2 2 Date Outcome GA Total Labor Labor/2nd/3rd Weight Sex Type Anes PTL Jania A1 A5 Name Clin Term Term Last Filed Vital Signs Vital Sign Reading Time Taken Comments Blood Pressure 127/86 10/19/2015 8:45 AM EDT Pulse 71 10/19/2015 8:45 AM EDT Temperature 36.3 C (97.4 F) 10/19/2015 8:45 AM EDT Respiratory Rate 16 10/19/2015 8:45 AM EDT Oxygen Saturation 99% 10/19/2015 8:45 AM EDT Inhaled Oxygen Concentration - - Weight 66.2 kg (146 lb) 10/19/2015 7:47 AM EDT Height 165.1 cm (5' 5 ) 10/09/2015 3:10 PM EDT Body Mass Index 24.3 10/09/2015 3:10 PM EDT Plan of Treatment Health Maintenance Due Date Last Done Comments Annual Wellness Exam 1965 Hepatitis C Screening 1980 DTaP/TDaP/Td (1 - Tdap) 1981 Cervical Cancer Screening 09/02/1983 Pap Smear 09/02/1983 HPV/Pap Cotest 1992 Breast Cancer Screening 2002 Cologuard 09/02/2007 Colon Cancer Screening 09/02/2007 Colonoscopy 09/02/2007 FIT 09/02/2007 Sigmoidoscopy 09/02/2007 Virtual Colonography 09/02/2007 Pneumococcal Vaccine 50+ (1 of 1 - PCV) 2012 Zoster (1 of 2) 2012 COVID-19 Vaccine (1 - 2023-2 5 season) 2024 Influenza Vaccine (Season Ended) 2025 Hepatitis B Vaccine Aged Out No longe r eligible based on patient's age to complete this topic Meningococcal B Vaccine Aged Out No l onger eligible based on patient's age to complete this topic Insurance R [id number] Advance Directives For more information, please contact: [phone] Documents on File Type Date Recorded Patient 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
--- OUTSIDE RECORDS SUMMARY | 2024-12-21 14:25 | XMS_ITS | Data Portability ---
Author Organization [place] - [facility] & [place] [facility] ADMIN Address [address] [place] [id number] Care Team Providers Care Retarder Operator Name Role Phone WU YOU Primary Care Provider Assessment No assessment recorded. Plan of Treatment Reminders Order Date Submit Date Provider Last Modified By Organization Details Last Modified Time Details Appointments None recorded. Lab None recorded. Referral None recorded. Procedures None recorded. Surgeries None recorded. Imaging None recorded. Medication Orders omeprazole 20 mg capsule,del ayed release 2023 024 [facility], [address] [place] [address] Dr [place], [place], [id number], 5 10:07:49 hydrocortis one 2.5 % topical cream with perineal applicator 2022 023 [facility]EL[facility]ER [facility], [address] [place] [address] Dr [place], [place], [id number], 3 20:16:02 Patient TargetsNo targets recorded. Patient InstructionsNo instructions recorded. Reason for Referral None Reported. Results Created Date Observation Date Name Description Value Unit Range Abnormal Flag Note LastModifiedBy Organization Detail LastModifiedTime 12/09/1912/09/2023 CBC W/AUT O DIFFSherrill BONILLA note See Note Order ing Provi sha: Wilmer smith MD Not Available [address] , [place], [address], 12/09/2023 09:58:32 12/09/1912/09/2023 CBC W/AUT O DIFFE RENTI AL white blood cell 8.5 10e3/ uL 4.5-13 .0 normal Not Available [address] Carol Hernandez, [place], [address], 12/09/2023 09:58:32 12/09/19 24 12/09/2023 CBC W/AUT O DIFFE RENTI AL red blood cell 5.07 10e6/ uL 3.80-5 .10 normal Not Available [address] [place] Hernandez, [place], [address], 12/09/2023 09:58:32 12/09/19 24 12/09/2023 CBC W/AUT O DIFFE RENTI AL hemoglobin 15.1 g/dL 11.5-1 5.3 normal Not Available [address] , [place], [address], 12/09/2023 09:58:32 12/09/19 24 12/09/2023 CBC W/AUT O DIFFE RENTI AL hematocrit 43.1 % 34.0-4 6.0 normal Not Available [address] [place], [place], [address], 12/09/2023 09:58:32 12/09/19 24 12/09/2023 CBC W/AUT O DIFFE RENTI AL mean cell volume 85 fL 78.0-9 8.0 normal Not Available [address] [place], [address], 12/09/2023 09:58:32 12/09/19 24 12/09/2023 CBC W/AUT O DIFFE RENTI AL mean cell HGB 29.8 pg 25.0-3 5.0 normal Not Available [address] [place], [address], 12/09/2023 09:58:32 12/09/19 24 12/09/2023 CBC W/AUT O DIFFE RENTI AL mean cell HGB concentratio n 35.0 g/dL 31.0-3 6.0 normal Not Available [address] , [place], [address], 12/09/2023 09:58:32 12/09/19 24 12/09/2023 CBC W/AUT O DIFFE RENTI AL red cell distribution width 11.9 % 11.0-1 5.0 normal Not Available [address] , [place], [address], 12/09/2023 09:58:32 12/09/19 24 12/09/2023 CBC W/AUT O DIFFE RENTI AL platelet count 284 10e3/ uL 150-40 0 normal Not Available [address] , [place], [address], 12/09/2023 09:58:32 12/09/19 24 12/09/2023 CBC W/AUT O DIFFE RENTI AL immature granulocyte % 0 0-1 normal Not Available [address] [place], [place], [address], 12/09/2023 09:58:32 12/09/19 24 12/09/2023 CBC W/AUT O DIFFE RENTI AL neutrophil % 76 % 35-75 high Not Available [address] [place], [place], [address], 12/09/2023 09:58:32 12/09/19 24 12/09/2023 CBC W/AUT O DIFFE RENTI AL lymphocyte % 16 % 10-50 normal Not Available [address] [place], [place], [address], 12/09/2023 09:58:32 12/09/19 24 12/09/2023 CBC W/AUT O DIFFE RENTI AL monocyte % 5 % 0-15 normal Not Available [address] , [place], [address], 12/09/2023 09:58:32 12/09/19 24 12/09/2023 CBC W/AUT O DIFFE RENTI AL eosinophil % 1 % 0-5 normal Not Available [address] [place], [address], 12/09/2023 09:58:32 12/09/19 24 12/09/2023 CBC W/AUT O DIFFE RENTI AL basophil % 1 % 0-5 normal Not Available [address] [place], [place], [address], 12/09/2023 09:58:32 12/09/19 24 12/09/2023 CBC W/AUT O DIFFE RENTI AL immature granulocyte # 0.03 x1000 /uL 0-0.05 normal Not Available [address] [place], [place], [address], 12/09/2023 09:58:32 12/09/19 24 12/09/2023 CBC W/AUT O DIFFE RENTI AL neutrophil # 6.50 x1000 /uL 1.50-8 .00 normal Not Available [address] [place], [address], 12/09/2023 09:58:32 12/09/19 24 12/09/2023 CBC W/AUT O DIFFE RENTI AL lymphocyte # 1.38 x1000 /uL 1.20-5 .20 normal Not Available [address] [place], [address], 12/09/2023 09:58:32 12/09/19 24 12/09/2023 CBC W/AUT O DIFFE RENTI AL monocyte # 0.44 x1000 /uL 0.40-0 .90 normal Not Available [address] [place], [address], 12/09/2023 09:58:32 12/09/19 24 12/09/2023 CBC W/AUT O DIFFE RENTI AL eosinophil # 0.11 x1000 /uL 0.00-0 .50 normal Not Available [address] [place], [place], [address], 12/09/2023 09:58:32 12/09/19 24 12/09/2023 CBC W/AUT O DIFFE RENTI AL basophil # 0.05 x1000 /uL 0.00-0 .30 normal Not Available [address] , [place], [address], 12/09/2023 09:58:32 12/09/19 24 12/09/2023 CBC W/AUT O DIFFE RENTI AL NRBC automated 0.0 /100_ WBC Not Available [address] , [place], [address], 12/09/2023 09:58:32 12/09/19 24 12/09/2023 CBC W/AUT O DIFFE RENTI AL performing lab see note - [address] [facility] [address] Not Available [address] , [place], [address], 12/09/2023 09:58:32 12/09/19 24 12/09/2023 COMP METAB OLIC PANEL note SEE NOTE Order ing Provi sha: Wilmer smith MD Not Available [address] , [place], [address], 12/09/2023 10:29:39 12/09/19 24 12/09/2023 COMP METAB OLIC PANEL sodium 132 mmol/ L 136-14 5 low Not Available [address] , [place], [address], 12/09/2023 10:29:39 12/09/19 24 12/09/2023 COMP METAB OLIC PANEL potassium 5.8 mmol/ L 3.5-5. 1 high Not Available [address] , [place], [address], 12/09/2023 10:29:39 12/09/19 24 12/09/2023 COMP METAB OLIC PANEL chloride 98 mmol/ L 98-107 normal Not Available [address] , [place], [address], 12/09/2023 10:29:39 12/09/19 24 12/09/2023 COMP METAB OLIC PANEL carbon dioxide 25 mmol/ L 24-33 normal Not Available [address] , [place], [address], 12/09/2023 10:29:39 12/09/19 24 12/09/2023 COMP METAB OLIC PANEL anion gap 14.8 mmol/ L 10-20 normal Not Available [address] [place], [address], 12/09/2023 10:29:39 12/09/19 24 12/09/2023 COMP METAB OLIC PANEL glucose 104 mg/dL 70-99 high Not Available [address] [place], [address], 12/09/2023 10:29:39 12/09/19 24 12/09/2023 COMP METAB OLIC PANEL blood urea nitrogen 20 mg/dL 7-18 high Not Available [address] [place], [place], [address], 12/09/2023 10:29:39 12/09/19 24 12/09/2023 COMP METAB OLIC PANEL creatinine 1.16 mg/dL 0.55-1 .02 high Not Available [address] , [place], [address], 12/09/2023 10:29:39 12/09/1912/09/2023 COMP METAB OLIC PANEL GFR (estimated) 54 mL/mi n >60 low [IM ROMEO NT]: The 2020 CKD-E PI equat ion is now the recom hernan d stand martha. This versi on does not inclu de race, as do the 2008 and 2011 CKD-E PI creat inine and creat inine -cyst atin C equat ions. Pleas e note that the eGFR now repor [...] CKD-E PI calcu lator is easil y searc hable on the inter net. Calcu lated [...] care of your patie nt. Not Available [address] [place], [place], [address], 12/09/2023 10:29:39 12/09/19 24 12/09/2023 COMP METAB OLIC PANEL BUN/creatini ne ratio 17 12-20 normal Not Available [address] [place], [place], [address], 12/09/2023 10:29:39 12/09/19 24 12/09/2023 COMP METAB OLIC PANEL total protein 7.1 g/dL 6.4-8. 2 normal Not Available [address] [place], [address], 12/09/2023 10:29:39 12/09/19 24 12/09/2023 COMP METAB OLIC PANEL albumin 3.9 g/dL 3.4-5. 0 normal Not Available [address] [place], [place], [address], 12/09/2023 10:29:39 12/09/19 24 12/09/2023 COMP METAB OLIC PANEL globulin 3.2 g/dL 1.5-4. 0 normal Not Available [address] [place], [place], [address], 12/09/2023 10:29:39 12/09/19 24 12/09/2023 COMP METAB OLIC PANEL albumin/glob ulin ratio 1.2 0.5-2. 0 normal Not Available [address] [place], [place], [address], 12/09/2023 10:29:39 12/09/19 24 12/09/2023 COMP METAB OLIC PANEL calcium 9.2 mg/dL 8.5-10 .1 normal Not Available [address] [place], [address], 12/09/2023 10:29:39 12/09/19 24 12/09/2023 COMP METAB OLIC PANEL osmolality serum calculated 267 mOsm/ kg 272-28 8 low Not Available [address] [place], [address], 12/09/2023 10:29:39 12/09/19 24 12/09/2023 COMP METAB OLIC PANEL bilirubin total 0.4 mg/dL 0.2-1. 0 normal Use of this assay is not recom hernan d for patie nts under going treat ment with Eltro mbopa g due to the poten tial for false ly eleva sergey resul ts. Not Available [address] , [place], [address], 12/09/2023 10:29:39 12/09/19 24 12/09/2023 COMP METAB OLIC PANEL SGOT/AST 15 U/L 15-37 normal Not Available [address] , [place], [address], 12/09/2023 10:29:39 12/09/19 24 12/09/2023 COMP METAB OLIC PANEL SGPT/ALT 29 U/L 14-59 normal Not Available [address] , [place], [address], 12/09/2023 10:29:39 12/09/19 24 12/09/2023 COMP METAB OLIC PANEL alkaline phosphatase total 129 U/L 46-116 high Not Available [address] , [place], [address], 12/09/2023 10:29:39 12/09/19 24 12/09/2023 COMP METAB OLIC PANEL performing lab SEE NOTE - [facility] R [address] [facility] [address] Not Available [address] [place], [address], 12/09/2023 10:29:39 12/09/19 24 12/09/2023 LIPID PANEL note SEE NOTE Order ing Provi sha: Wilmer smith MD Not Available [address] [place], [address], 12/09/2023 10:29:41 12/09/19 24 12/09/2023 LIPID PANEL triglyceride s 146 mg/dL < 150 normal Natio nal Tracy stero l Educa tion Progr am (NCEP ) Guide lines : Marge l < 150 mg/dL Borde rline 150 - 199 mg/dL High 200 - 499 mg/dL Very High >or= 500 mg/dL Not Available [address] [place], [address], 12/09/2023 10:29:41 12/09/19 24 12/09/2023 LIPID PANEL cholesterol 155 mg/dL < 200 normal Natio nal Tracy stero l Educa tion Progr am (NCEP ) Guide lines : Lynette able < 200 mg/dL Borde rline Risk 200 - 239 mg/dL High Risk >or= 240 mg/dL Not Available [address] [place], [address], 12/09/2023 10:29:41 12/09/19 24 12/09/2023 LIPID PANEL HDL cholesterol 31 mg/dL > 60 low Natio nal Tracy stero l Educa tion Progr am Adult Treat ment Panel III (NCEP -ATP III) Guide lines : < 40 mg/dl : Low HDL-C holes terol >or= 60 mg/dl : High HDL-C holes terol Not Available [address] [place], [address], 12/09/2023 10:29:41 12/09/19 24 12/09/2023 LIPID PANEL LDL cholesterol 95 mg/dL < 100 normal Natio nal Tracy stero l Educa tion Progr am (NCEP ) Guide lines : Optim al < 100 mg/dL Near/ Above Optim al 100 - 129 mg/dL Borde rline High 130 - 159 mg/dL High 160 - 189 mg/dL Very High >or= 190 mg/dL Not Available [address] [place], [address], 12/09/2023 10:29:41 12/09/19 24 12/09/2023 LIPID PANEL performing lab SEE NOTE [facility] [address] [place] [address] Not Available [address] , [place], [address], 12/09/2023 10:29:41 12/09/19 24 12/09/2023 AMYLA SE note See Note Order ing Provi sha: Wilmer smith MD Not Available [address] , [place], [address], 12/09/2023 10:29:43 12/09/19 24 12/09/2023 AMYLA SE amylase 24 U/L 25-115 low Not Available [address] , [place], [address], 12/09/2023 10:29:43 12/09/19 24 12/09/2023 AMYLA SE performing lab see note ML - [facility] [address] [place] [address] Not Available [address] , [place], [address], 12/09/2023 10:29:43 12/09/19 24 12/09/2023 LIPAS E note See Note Order ing Provi sha: Wilmer smith MD Not Available [address] , [place], [address], 12/09/2023 10:29:43 12/09/19 24 12/09/2023 LIPAS E lipase 29 U/L 16-77 normal Not Available [address] , [place], [address], 12/09/2023 10:29:43 06/11/20 24 12/09/2023 LIPAS E performing lab see note ML - [facility] [address] [facility] [address] Not Available [address] , [place], [address], 12/09/2023 10:29:43 12/09/19 24 12/09/2023 MAGNE SIUM note SEE NOTE Order ing Provi sha: Wilmer smith MD Not Available [address] , [place], [address], 12/09/2023 10:29:44 12/09/19 24 12/09/2023 MAGNE SIUM magnesium 1.8 mg/dL 1.8-2. 4 normal Not Available [address] , [place], [address], 12/09/2023 10:29:44 12/09/19 24 12/09/2023 MAGNE SIUM performing lab SEE NOTE ML - [facility] [address] [facility] [address] Not Available [address] , [place], [address], 12/09/2023 10:29:44 12/09/19 24 12/09/2023 THYRO ID PANEL W/TSH note See Note Order ing Provi sha: Wilmer smith MD Not Available [address] , [place], [address], 12/09/2023 10:29:45 12/09/19 24 12/09/2023 THYRO ID PANEL W/TSH T4 free 1.04 NG/dL 0.76-1 .46 normal This test may be affec sergey by high level s of bioti n, found in some presc ripti on and over- the-c ounte r suppl ement s. Christiana ly, patie nts shoul d disco ntinu e bioti n 3 days befor e testi ng. Resul ts obtai tucker after recen t bioti n inges tion shoul d be inter prete d with cauti on. Not Available [address] , [place], [address], 12/09/2023 10:29:45 12/09/19 24 12/09/2023 THYRO ID PANEL W/TSH thyroid stimulating hormone 4.10 uIU/m L 0.36-3 .74 high This test may be affec sergey by high level s of bioti n, found in some presc ripti on and over- the-c ounte r suppl ement s. Christiana ly, patie nts shoul d disco ntinu e bioti n 3 days befor e testi ng. Resul ts obtai tucker after recen t bioti n inges tion shoul d be inter prete d with cauti on. Not Available [address] , [place], [address], 12/09/2023 10:29:45 12/09/19 24 12/09/2023 THYRO ID PANEL W/TSH performing lab see note [facility] R [address] [place] [address] Not Available [address] , [place], [address], 12/09/2023 10:29:45 Result Notes None recorded. Problems Name Problem SNOMED Code Status Onset Date Resolution Date Notes Provider Name and Address Organization Details Recorded Time Chronic constipation 250689312 Active 2021 Jayden Adrian MD [facility],[email or web address], [place], [address], [facility] - [place] & [place] 2 16:19:10 Nonulcer dyspepsia 0040296 Active 2021 Jayden Adrian MD [facility] Copyright Agent Antoine Veodin,[email or web address], [place], [address], [place] - [facility] - [place] & [place] 16:19:16 Hemorrhoids 21849546 Active 2022 Jayden Adrian MD [address] [place] [address],[address], [address], [place] - [facility] - [place] & [place] 13:03:41 Problem Notes None recorded. Procedures Surgical History Date Name Laterality Status Provider Name and Address Organization Details Recorded Time 023 parathyroidectomy completed Micah Corleyeri JOANA - [facility] - [place] & [place] 12/19/2022 12:52:43 022 EGD/Endoscopy completed Micah Corleyeri JOANA - [facility] - [place] & [place] 03/21/2022 16:00:[address] of abdomen completed Micah Corleyeri JOANA - [facility] - [place] & [place] 03/21/2022 16:01:26 021 completed Micah Corleyeri JOANA - [facility] - [place] & [place] 12/19/2022 12:49:32 021 Date of Last Colonoscopy completed Micah Corleyeri JOANA - [facility] - [place] & [place] 12/19/2022 12:49:32 021 Colonoscopy completed Micah Corleyeri JOANA - [facility] - [place] & [place] 03/21/2022 16:02:01 021 mammography completed Micah Corleyeri JOANA - [facility] - [place] & [place] 03/21/2022 16:00:39 020 US scan of gallbladder completed Micah BERNARD - [facility] - [place] & [place] 03/21/2022 16:01:52 Tonsillectomy/Adenoi dectomy completed Micah Mccarthygieri JOANA - [facility] - [place] & [place] 03/21/2022 15:58:49 Hysterectomy completed Micah Mccarthygieri JOANA - [facility] - [place] & [place] 03/21/2022 15:59:10 Imaging Results None recorded. Procedure [...] No t Available Vitals Date Recorded Body height Body mass index (BMI) Body weight Body temperature Heart rate Respiratory rate Systolic blood pressure Diastolic blood pressure Provider Name and Address Organization Details Last Updated DateTime 3 165.1 cm 21.4 kg/m2 13813.2 6 g 98.4 [degF] 59 /min 18 /min 138 mm[Hg] 75 mm[Hg] Micah BERNARD - [facility] - [facility] 3 12:48:56 Date Recorded Body height Body mass index (BMI) Body weight Body temperature Heart rate Respiratory rate Systolic blood pressure Diastolic blood pressure Provider Name and Address Organization Details Last Updated DateTime 4 165.1 cm 22.3 kg/m2 86126.1 g 97.9 [degF] 52 /min 18 /min 159 mm[Hg] 78 mm[Hg] Micah TA - [place] & [place] 4 15:37:47 Date Recorded Body weight Body temperature Heart rate Systolic blood pressure Diastolic blood pressure Provider Name and Address Organization Details Last Updated DateTime 06/20/2022 67091.0 5 g 98 [degF] 69 /min 163 mm[Hg] 85 mm[Hg] socorro lerma [facility] & [place] 2 12:50:02 Social History Question Answer Notes LastModified by Organizat ion Details LastModified Time Tobacco Smoking Status Current Every Day Smoker Micah Stevens [facility], [facility] & [place] 03/21/2022 15:56:28 Do You Have An Advance [...] anxious, or unable to sleep at night)? [id number] Information not available 03/21/2022 Do you have [...] History Condition Response Coronary Artery Disease N Gout N None N Colon Cancer N Kidney Stones Y Hyperthyroidism N GI Problems Y Depression Y COPD N Hypothyroidism N Osteoporosis/Osteopenia N Diverticulitis/Diverticulosis N Colon Polyps N Anxiety Disorder Y Diabetes N Bleeding Disorder N Arthritis Y Seizures/Epilepsy N Tuberculosis N Hyperlipidemia Y Cancer N Stroke N Asthma N Sleep Apnea N GERD/Reflux Y High Cholesterol Y Hepatitis N Cirrhosis N Liver Disease Y Heart Disease N Psychiatric/Mental Health Condition Y Hypertension Y Kidney Disease N Gynecological History Statement/Question Response Abnormal Pap N Date of Last Colonoscopy 11/10/2020 03/30/2021 Sexually Active? Y Menses Monthly N Current Control Method Hysterectom y Obstetrics History GPAL:G 0 P 0 0 0 0 Immunizations Vaccine Type Date Status Note Provider Nam e and Address Organization Details Recorded Time SARS-COV-2 (COVID-19) vaccine, UNSPECIFIED 06/30/2020 completed Micah james JOANA - [facility] & [place] 03/21/2022 15:52:29 pertussis 06/30/2015 completed Micah james JOANA - [facility] - [place] & [place] 03/21/2022 15:52:40 Hep A, adult 06/30/2011 completed Micah james JOANA - [facility] - [place] & [place] 03/21/2022 15:53:06 Hep B, adult 06/30/2011 completed Micah james, JOANA [facility] & [place] 03/21/2022 15:53:27 Past Encounters Encounter ID Performer Location Encounter Start Date Encounter Closed Date Diagnosis/Indication Diagnosis SNOMED-CT Code Diagnosis ICD10 Code Diagnosis Note [id number] Jayden Adrian MD [facility] [address] [place] [phone] 03/21/2022 15:09:39 03/21/2022 16:19:23 Chronic constipation 680010854 K59.09 The patient's chronic constipati on has improved dramatical ly, she is taking fiber on regular basis drinking plenty of water and is having a bowel movement without difficulty every other day without pain or discomfort . No melena or bright red blood per rectum. Nonulcer dyspepsia 21810 07 K30 The patient's upper abdominal discomfort was without associated ulceration or significan t inflammati on. With discontinu ation of high amounts of caffeine, and with PPI therapy the patient's upper abdominal symptoms have resolved entirely. Continue current PPI therapy follow-up 3 months [id number] Jayden Adrian MD [facility] erology [address] [place] [phone] 06/20/2022 12:29:31 06/20/2022 13:03:32 Chronic constipation 187064852 K59.09 The patient's chronic constipati on has improved dramatical ly, she is taking fiber on regular basis drinking plenty of water and is having a bowel movement without difficulty every other day without pain or discomfort . No melena or bright red blood per rectum. No change continue fiber Nonulcer dyspepsia 59095 07 K30 The patient's upper abdominal discomfort was without associated ulceration or significan t inflammati on. With discontinu ation of high amounts of caffeine, and with PPI therapy the patient's upper abdominal symptoms have resolved entirely. Continue current PPI therapy follow-up 6 months [id number] [facility] [address] [place] [phone] 12/19/2022 12:23:33 12/19/2022 13:20:57 Chronic constipation 744562202 K59.09 The patient's chronic constipati on Did have a slight worsening. We discussed with the patient the importance see remaining on fiber supplement ation on a daily basis and that if she goes more than 2 days without a bowel movement she is suggested to take a dose of local magnesia before going to bed that night. Nonulcer dyspepsia 35283 07 K30 The patient's upper abdominal discomfort was without associated ulceration or significan t inflammati on. With discontinu ation of high amounts of caffeine, and with PPI therapy the patient's upper abdominal symptoms have resolved entirely. Continue current PPI therapy follow-up 6 months Hemorrhoids 15379763 K64 .9 Mild hemorrhoid al irritation from a bout of constipati on. Begin hydrocorti sone cream, problems did not resolve patient is to call [id number] Jayden Adrian MD [facility] erology [address] [place] [phone] 01/12/2024 14:44:08 01/12/2024 16:13:19 Chronic constipation 544000250 K59.09 Doing well on fiber supplement ation with minimal symptoms. Continue fiber at current dose, encourage significan t water intake. Nonulcer dyspepsia 56683 07 K30 Controlled , recently reduced omeprazole from 40 mg a day to 20 mg a day with no increased symptoms continue on 20 mg a day at next follow-up consider discontinu ation Hemorrhoids 70824219 K64 .9 asymptomat ic Health Concerns Section Related Observation LastModified by Organization Detai ls LastModified Time None Recorded Concern Status LastModified by Organization Details LastModified Time None Recorded Advance Directives Directive Y: Payers Insurance Date Sequence Insurance Name Policy Number Policy Álvarez Covered Member ID Álvarez Member ID Guarantor Name 01/17/2024 1 [facility] [id number] Raul Harley [id number] Michelle Lakisha Harley Notes Date Note Type Note Provider Name [...] is eating well she denies any complaints. Jayden Adrian MD [facility],[address], [place], [address], [facility] - [place] & [place] 03/21/2022 16:19:50 06/20/2022 text/html this is a routin e follow-up in regards to nonulcer dyspepsia and chronic idiopathic constipation. The patient presents today reporting that she is doing well, he has had no real constipation problems on current therapy, she denies any abdominal pain. She has had no heartburn or indigestion. Jayden Adrian MD [address] [place] [address],[address], [place], [address], [facility] - [facility] & [place] 06/20/2022 13:03:28 12/19/2022 text/html The patient presents [...] hemorrhoidal swelling. No bleeding. Jayden Adrian MD [address] [place] [address],[address], [place], [address], [facility] [place] 12/19/2022 13:11:17 01/12/2024 text/html follow this is [...] mg a day recently. Jayden Adrian MD [address] [place] [address],[address], [place], [address], [facility] [place] 01/12/2024 16:17:23 OBGyn Episode No OBEpisode recorded.
== END 2024-12-21 23:59 | disposition home or self-care (01) ==
LOC: RAD 14:22
PROVIDERS: PCP Nurse Practitioner Family; Visit Provider Nurse Practitioner
DX: M19.072 Primary osteoarthritis, left ankle and foot (principal); M19.071 Primary osteoarthritis, right ankle and foot
CPT/HCPCS: 73630

== ENCOUNTER 2025-04-05 12:41 | Outpatient (CLI) | payer OTHER, SELFPAY ==
--- NOTE | 2025-04-05 12:44 | MM_ITS ---
PROCEDURE INFORMATION: Exam: MG Bilateral Screening 3D Mammography Exam date and time: 04/05/2025 1:07 PM Age: 64 years old Clinical indication: Screening examination TECHNIQUE: Imaging protocol: Bilateral Screening tomosynthesis and 2D mammography including computer-aided detection (CAD) when performed. COMPARISON: 1. MG MM DIG SCREENING MAMM BI W/CAD 08/28/2022 4:47 PM 2. MG MM DIG SCREENING MAMM BI W/CAD 05/14/2021 10:51 AM FINDINGS: MAMMOGRAPHY: Breast composition: There are scattered areas of fibroglandular density. Mass: None. Architectural distortion: None. Calcifications: No suspicious calcifications. Asymmetric density: None. Skin thickening: None. Axillary adenopathy: None. IMPRESSION: No mammographic evidence of malignancy. Annual screening is recommended unless otherwise clinically indicated. ASSESSMENT: BI-RADS Category 1: Negative.
--- OUTSIDE RECORDS SUMMARY | 2025-04-05 12:44 | XMS_ITS | Clinical Summary ---
Author Organization [facility] Address [address] [place] [address] Phone Care Team Providers Care Tool Adjuster Name Role Phone Tomy Hanson MD Primary Care Provider [phone] Allergies No known active allergies Medications metoprolol [...] TUNNEL RELEASE; Surgeon: Danie Wisdom MD; Location: [facility]; Service: Hand Medical History Medical History Date [...] COVID-19 Vaccine (1 - 2023-2 5 season) 2025 Influenza Vaccine (#1) 2025 Hepatitis B Vaccine Aged Out No longe r eligible based on patient's age to complete this topic Meningococcal B Vaccine Aged Out No l onger eligible based on patient's age to complete this topic Insurance R [id number] Advance Directives For more information, please contact: [phone] Documents on File Type Date Recorded Patient Electrical Tests Supervisor Expl anation Advance Directives/DNR 10/19/2015 7:36 AM Oct 19 2015 11:36:11 :911 GMT Care Teams Tool Adjuster Relationship Specialty Start Date End Date Tomy Hanson MD [address] [place] [address] PCP - General Internal Medicine-Adolescent Medicine 10/16/15
--- OUTSIDE RECORDS SUMMARY | 2025-04-05 12:44 | XMS_ITS | Clinical Summary ---
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 Name Role Phone Tomy Hawkins MD Primary Care Provider [phone] Allergies No known active allergies Medications amLODIPine [...] 05/04/2012, 03/07/1999 [facility]-Depression Screening 09/13/2023 023, 09/12/2022 [id number] Vaccine ( season) 2025 05/05/2021, 09/13/2020 [facility]-Influenza Vaccine (#1) 02/28/202506/03, 04/10/2021 [facility]-RSV Vaccine: 60+ Years o r [...] Recently Relevant to Health Maintenance Results * [facility] Hepatitis C Antibody (04/27/2018 10:17 AM EDT) [facility] Hepatitis C Ab NEGATIVE Reference Range: Negative [facility] 04/27/2018 10:1 7 AM EDT 04/27/2018 10:33 AM EDT us Jose Fofana MD LAB BLOOD ORDERABLES Final Re sult [facility] from Last 3 Months or Most Recently Relevant to Health [place] [id number] Care Teams Car Dumper Operator Helper Relationship Specialty Start Date End Date Tomy Hawkins MD [address] [place] [id number] PCP - General 11/10/20
== END 2025-04-05 23:59 | disposition home or self-care (01) ==
LOC: RAD 12:42
PROVIDERS: PCP Nurse Practitioner Family; Visit Provider Nurse Practitioner Family
DX: Z12.31 Encounter for screening mammogram for malignant neoplasm of breast (principal); R92.323 Mammographic fibroglandular density, bilateral breasts
CPT/HCPCS: 77063; 77067